=== PATIENT | male | born 1960 | race Caucasian/White ===

== ENCOUNTER 2020-04-18 14:02 | Inpatient (IN) ==
[2020-04-18] MEDS ORDERED: IOPAMIDOL 100 ML BOTTLE IV ONE (14:03)
[2020-04-18 14:57] LABS: Hematocrit 38.6 % (40.1-51.0); Hemoglobin 13.6 g/dL (13.7-17.5); Mean Cell Volume 88.7 fL (80.0-100.0); Mean Corpuscular HGB Conc 35.2 g/dL (31.0-36.0); Mean Platelet Volume 9.7 fL (7.4-10.4); Platelet Count 282 K/mcL (140-440); RBC 4.35 M/mcL (4.63-6.08); Red Cell Distribution Width 12.9 % (11.5-14.5); WBC 25.6 K/mcL (4.50-11.00)
[2020-04-18 15:18] LABS: ALT/SGPT 79 U/l (0-40); AST/SGOT 54 U/l (0-37); Alkaline Phosphatase 196 U/L (39-117); Bilirubin,Total 1.1 mg/dL (0.0-1.0); Blood Urea Nitrogen 18 mg/dl (8-23); Calcium 8.1 mg/dl (8.6-10.4); Carbon Dioxide 21 mmol/L (22-30); Chloride 91 mmol/L (96-108); Globulin 3.1 gm/dL (2.2-3.7); Glomerular Filtration Rate 72; Glucose 120 mg/dL (70-105)
[2020-04-18 15:23] LABS: Band Neutrophils % 15 % (0-10); Lymphocytes % 7 % (15-49); Monocytes % (Manual) 4 % (1-12); Platelet Estimate NORMAL (NORMAL); RBC Morphology NORMAL (NORMAL); Segmented Neutrophils % 74 % (38-78)
[2020-04-18] MEDS ORDERED: cefTRIAXone 1 GM VIAL IV ONE (15:54)
[2020-04-18] MEDS ORDERED: 0.9 % SODIUM CHLORIDE 1,000 ML IV ONE ×2 (16:06)
--- NOTE | 2020-04-18 16:11 | Cat Scan Report ---
INDICATION: swelling, redness, injury, worsening x 1 week TECHNIQUE: Axial images through the right foot. Sagittal and coronal reformatted images. 80 mL contrast material injected COMPARISON: Previous plain film examination dated 04/10/2020 FINDINGS: Generalized soft tissue swelling in the right midfoot and forefoot. There is a poorly defined soft tissue hypodensity along the plantar aspects of the right foot at the level of the first and second metatarsals. This may be soft tissue hematoma. No soft tissue gas bubbles. No radiopaque foreign body. There is no right foot fracture. No evidence for osteomyelitis. IMPRESSION: 1. Generalized soft tissue swelling of the right midfoot and forefoot 2. Poorly defined low density within the soft tissues along the plantar aspects of the first and second metatarsal. Soft tissue hematoma is possible. 3. No soft tissue gas bubbles. No radiopaque foreign body 4. No right foot fracture Interpreted and Authenticated by: Lorne Resendiz 04/18/20
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
[2020-04-18] MEDS ORDERED: ONDANSETRON 4 MG/2 ML VIAL IV ONE (16:36)
[2020-04-18] MEDS ORDERED: HYDROmorphone 0.5 MG/0.5 ML SYRINGE IV ONE (16:36)
[2020-04-18] MEDS ORDERED: HYDROmorphone 0.5 MG/0.5 ML SYRINGE IV PRN (17:05)
[2020-04-18] MEDS ORDERED: ONDANSETRON 4 MG/2 ML VIAL IV PRN ×3 (17:07→18:11)
[2020-04-18] MEDS ORDERED: 0.9 % SODIUM CHLORIDE 1,000 ML IV SCH (17:15)
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
[2020-04-18] MEDS ORDERED: ACETAMINOPHEN 325 MG TABLET PO PRN (18:11)
[2020-04-18] MEDS: 0.9 % SODIUM CHLORIDE 1,000 ML IV SCH (18:33)
[2020-04-18] MEDS: KETOROLAC 10 MG TABLET PO PRN (18:48)
[2020-04-18] MEDS ORDERED: ACETAMINOPHEN 650 MG/65 ML BOTTLE IV PRN (19:41)
[2020-04-18] MEDS: DOCUSATE SODIUM 100 MG CAPSULE PO SCH (23:33)
[2020-04-18] MEDS: SENNOSIDES 1 TABLET PO SCH (23:33)
[2020-04-18] MEDS: 0.9 % SODIUM CHLORIDE 10 ML SYRINGE IV SCH (23:33)
[2020-04-18] MEDS: FAMOTIDINE 20 MG TABLET PO SCH (23:34)
[2020-04-19] MEDS: 0.9 % SODIUM CHLORIDE 1,000 ML IV SCH ×3 (02:32→23:08)
[2020-04-19] MEDS: KETOROLAC 10 MG TABLET PO PRN (02:34)
[2020-04-19] MEDS: 0.9 % SODIUM CHLORIDE 10 ML SYRINGE IV SCH ×3 (04:10→21:10)
[2020-04-19 07:05] LABS: Hematocrit 33.8 % (40.1-51.0); Hemoglobin 11.6 g/dL (13.7-17.5); Mean Cell Volume 91.6 fL (80.0-100.0); Mean Corpuscular HGB Conc 34.3 g/dL (31.0-36.0); Mean Platelet Volume 9.7 fL (7.4-10.4); Platelet Count 262 K/mcL (140-440); RBC 3.69 M/mcL (4.63-6.08); Red Cell Distribution Width 13.8 % (11.5-14.5); WBC 23.2 K/mcL (4.50-11.00)
[2020-04-19 07:40] LABS: Blood Urea Nitrogen 16 mg/dl (8-23); Calcium 7.7 mg/dl (8.6-10.4); Carbon Dioxide 22 mmol/L (22-30); Chloride 100 mmol/L (96-108); Glomerular Filtration Rate 92; Glucose 101 mg/dL (70-105)
[2020-04-19 08:18] LABS: Band Neutrophils % 5 % (0-10); Lymphocytes % 16 % (15-49); Monocytes % (Manual) 6 % (1-12); Platelet Estimate NORMAL (NORMAL); RBC Morphology NORMAL (NORMAL); Reactive Lymphocytes 1 % (0-2); Segmented Neutrophils % 72 % (38-78)
[2020-04-19] MEDS: ENOXAPARIN 40 MG/0.4 ML SYRINGE SQ SCH (09:17)
[2020-04-19] MEDS: DOCUSATE SODIUM 100 MG CAPSULE PO SCH ×2 (09:21→21:08)
[2020-04-19] MEDS: FAMOTIDINE 20 MG TABLET PO SCH ×2 (09:33→21:18)
[2020-04-19] MEDS: cefTRIAXone 1 GM VIAL IV SCH (09:33)
[2020-04-19] MEDS: HYDROmorphone 0.5 MG/0.5 ML SYRINGE IV PRN ×4 (09:38→23:07)
--- NOTE | 2020-04-19 09:58 | Orthopedic Consult Note ---
HPI Data of Consult Primary Care Provider: Lorne Back DO Consult Narrative Patient Information: Note initiated : 04/19/20 at 9:53 am Service Date, if different from initiated Date: [] Patient: Bob Dupont 60 y/o M admitted on 04/18/20 for right foot redness/swelling. Chief Complaint: [right foot cellulitis] Patient is consulted to podiatry with a severe right foot swelling and infection. He injured it on the , 1 week ago, and has become very painful and swollen. He has no other major contributing factors such as diabetes. He does test positive with gram-positive cocci in his blood. The right foot fore foot is severely swollen with notable purulence and fluctuance under the tissue. cc:: CC: Yulisa Meléndez Musculoskeletal Musculoskeletal: Present as per HPI PFSH PFSH All Active Problems Strain of great toe (Acute) Contusion of foot, right (Acute) Cellulitis of right foot (Acute) Elevated WBC count (Acute) Environmental allergies (Chronic) Rotator cuff impingement syndrome (Chronic) FH: CAD (coronary artery disease) (Chronic) Osteoarthritis (Chronic) Viral URI with cough (Acute) Microhematuria (Chronic) Bilateral otitis media (Acute) URI (upper respiratory infection) (Acute) Ureteral calculus (Chronic) Trochanteric bursitis (Chronic) Tinea cruris (Chronic) Reactive airway disease (Chronic) Pyelonephritis (Chronic) Onychomycosis (Chronic) Obstructive uropathy (Chronic 06/13/13) Insomnia (Chronic) Essential hypertension (Chronic) Hyperlipidemia (Chronic) Hearing loss (Chronic) Erectile dysfunction (Chronic) Dermatitis (Chronic) Osteoarthritis of hip (Chronic 01/04/15) Colon adenoma (Chronic 12/15/14) Bronchitis (Chronic 01/04/15) Asthma (Chronic) Abdominal pain (Chronic) Medical History Abdominal pain (Chronic) Asthma (Chronic) Bronchitis (Chronic 01/04/15) Calculus of kidney (Resolved) Colon adenoma (Chronic 12/15/14) 06/16/17. 5-7 year follow-up per Dr. Juarez Dermatitis (Chronic) forehead, likely rosacea Erectile dysfunction (Chronic) Well-controlled on Viagra 10 mg as needed. Essential hypertension (Chronic) FH: CAD (coronary artery disease) (Chronic) Father Hearing loss (Chronic) Hyperlipidemia (Chronic) Well-controlled on Lipitor 10 mg daily. No myalgias. Insomnia (Chronic) Microhematuria (Chronic) H/O Obstructive uropathy (Chronic 06/13/13) Onychomycosis (Chronic) Osteoarthritis (Chronic) Osteoarthritis of hip (Chronic 01/04/15) Pyelonephritis (Chronic) Reactive airway disease (Chronic) Tinea cruris (Chronic) Trochanteric bursitis (Chronic) Ureteral calculus (Chronic) passed Surgical History H/O colonoscopy (Resolved 06/16/17) 05/18/12 Colon ascending; tubular adenoma. Hemorrhoids. 06/16/17 TA, 5-[address] Juarez. 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 well-balanced diet: daily or most days during the past year weight has: remained stable smoking status: Never smoker alcohol intake frequency: does not drink substance use type: does not use MEDS/ALLERGIES Home Medications and Allergies Home Medications Medication Instructions Recorded Confirmed Type atorvastatin 10 mg PO QHS 04/18/20 04/18/20 History Allergies Allergy/AdvReac Type Severity Reaction Status Date / Time morphine AdvReac Mild Hallucinati Verified 04/18/20 18:40 ng Physical Examination Ankle & Foot right: Ankle appearance: swelling, erythema and effusion Foot appearance: swelling, erythema, contusion and effusion Foot swelling: dorsal, plantar, medial and lateral A/P Time Spent With Patient Time: Heart inspection: S1, S2 present, no murmur detected Lungs clear to auscultation. Plan:incision and drainage of the right foot, packed with Betadine soaked packing, -dressing changed daily, follow-up in podiatry clinic IV antibiotics, Once white cell count returns to baseline. Total time spent is greater than 50% in coordination of care (as documented) at patient's floor/unit and/or counseling patient:
--- NOTE | 2020-04-19 09:59 | Internal Med Progress Note ---
SUBJECTIVE Subjective Patient information: Note initiated : 04/19/20 at 9:57 am Service Date, if different from initiated Date: [] Patient: Bob Dupont 60 y/o M admitted on 04/18/20 for right foot redness/swelling. Chief Complaint: Follow-up cellulitis Interval history: Patient feels a little better this morning, though still feels ill. Erythema has started to mildly regress and starting to lighten, though still significant edema. Area between the first and second toes darker and appears to be organizing. Pertinent ROS: No reaction to acetaminophen. Continued fever. Continued foot pain. No nausea or vomiting. Remains n.p.o. Constitutional Vitals: Vital Signs Temp Pulse Resp BP Pulse Ox 97.2 F 66 16 123/70 97 04/19/20 08:00 04/19/20 08:00 04/19/20 08:00 04/19/20 08:00 04/19/20 08:00 Period Temp Pulse Resp BP Sys/Hassan Pulse Ox Last 24 Hr 97.2 F-100.9 F 66-104 14-20 111-152/59-71 93-97 Intake and Output 04/18/20 04/19/20 04/19/20 21:59 05:59 13:59 Intake Total 1120 0 Output Total 1000 450 Balance 1120 -1000 -450 Weight 190 lb General: Looks mildly ill, improved from yesterday Chest: Clear bilaterally Cardiovascular: Regular, no murmur Abdomen: Soft, nontender Extremities: Foot with erythema slightly regressed from drawn margins, mild erythema on the calf/kaur is resolving. The area between the first and second toes on the dorsum appears tighter, purplish discoloration a little more intense today, may be some fluctuance, though difficult to tell with the tightness of skin. Neuro: Alert, oriented x3. Intake & Output: Intake & Output 04/18/20 04/19/20 04/19/20 21:59 05:59 13:59 Intake Total 1120 0 Output Total 1000 450 Balance 1120 -1000 -450 Weight 190 lb Intake: IV 1120 Sodium Chloride 0.9% 1,000 ml @ 1120 100 mls/hr IV .Q10H [facility] Rx#: [id number] Oral 0 Output: Void Amount 1000 450 Other: Urine Appearance Clear Urine Color Dark Yellow OBJ DATA Labs CBC & Chem 7: 04/19/20 05:15 04/19/20 05:15 Labs: Abnormal Lab Results 04/19/20 04/19/20 04/18/20 05:15 05:15 14:31 WBC 23.2 H 25.6 H RBC 3.69 L 4.35 L Hgb 11.6 L 13.6 L Hct 33.8 L 38.6 L Band Neutrophils % 15 H Lymphocytes % 7 L Sodium Chloride Carbon Dioxide Glucose Calcium 7.7 L Total Bilirubin AST ALT Alkaline Phosphatase C-Reactive Protein Albumin 04/18/20 04/18/20 14:29 14:29 WBC RBC Hgb Hct Band Neutrophils % Lymphocytes % Sodium 128 L Chloride 91 L Carbon Dioxide 21 L Glucose 120 H Calcium 8.1 L Total Bilirubin 1.1 H AST 54 H ALT 79 H Alkaline Phosphatase 196 H C-Reactive Protein 24.8 H Albumin 3.0 L Meds: Medications Acetaminophen (Tylenol) 650 mg PO Q6HP PRN; Protocol PRN Reason: Per Pain Protocol/Fever > 101 Ceftriaxone Sodium (Rocephin) 1 gm IV Q24H [facility] Last Admin: 04/19/20 09:33 Dose: 1 gm Documented by: Docusate Sodium (Colace) 100 mg PO BID [facility] Last Admin: 04/19/20 09:21 Dose: Not Given Documented by: Enoxaparin Sodium (Lovenox) 40 mg SQ DAILY [facility] Last Admin: 04/19/20 09:17 Dose: Not Given Documented by: Famotidine (Pepcid) 20 mg PO BID [facility] Last Admin: 04/19/20 09:33 Dose: 20 mg Documented by: Hydromorphone HCl (Dilaudid) 0.5 mg IV Q2HP PRN; Protocol PRN Reason: Per Pain Protocol Last Admin: 04/19/20 09:38 Dose: 0.5 mg Documented by: Sodium Chloride (Sodium Chloride 0.9%) 1,000 mls @ 100 mls/hr IV .Q10H [facility] Last Admin: 04/19/20 02:32 Dose: 100 mls/hr Documented by: Acetaminophen (Ofirmev) 650 mg in 65 mls @ 130 mls/hr IV Q6HP PRN; Protocol PRN Reason: PAIN/FEVER > 101 Last Admin: 04/18/20 23:43 Dose: 130 mls/hr Documented by: Ketorolac Tromethamine (Toradol) 10 mg PO Q6HP PRN; Protocol PRN Reason: Per Pain Protocol Stop: 04/20/20 17:35 Last Admin: 04/19/20 02:34 Dose: 10 mg Documented by: Ondansetron HCl (Zofran) 4 mg IV Q4-6HP PRN PRN Reason: Nausea And Vomiting Senna (Senokot) 2 tab PO HS [facility] Last Admin: 04/18/20 23:33 Dose: Not Given Documented by: Sodium Chloride (Saline Flush) 10 ml IV Q8 [facility] Last Admin: 04/19/20 04:10 Dose: Not Given Documented by: Trazodone HCl (Desyrel) 25 mg PO HSP PRN PRN Reason: Insomnia A/P Narrative A/P Narrative: 60-year-old male presenting with cellulitis of his right foot in the setting of prior injury. Cellulitis right foot. Erythema regressing this morning, though white count remains at 23,000. Blood cultures taken on admission are all positive for gram- positive cocci. Discussed with Dr. Knight, he has seen the patient and plans to do an I&D later this morning. Patient presented with warm erythematous and swollen right forefoot and toes. Some streaking to the midfoot consistent with cellulitis. Etiology may have been a skin break from inflammatory edema following the injury to his foot. The area between the first and second toes now looks like it may be organizing. Given gram-positive bacteremia, will expand coverage for staph with vancomycin. Initially this appeared to be more of a strep cellulitis.. Inpatient from time of hospitalization Continue ceftriaxone Add vancomycin Continue with hydration Acetaminophen for fever Follow-up final blood cultures and sensitivities Elevate lower extremity Hyponatremia. Mild at presentation, resolved. Suspect this is dilutional secondary to his increased water intake to try to remain hydrated with not much else in the way of solutes due to his poor appetite. Monitor Flushing reaction after nonsteroidals and acetaminophen. This almost sounds as if the patient had fever which broke following ibuprofen or acetaminophen, he became flushed and then diaphoretic. He generally does not use [id number] pain relievers, but has had no prior history of a reaction. No wheezing, no urticaria noted. Tolerating acetaminophen here. Continue acetaminophen for fever Hypercholesterolemia. On statin at home. Continue Time Spent With Patient Time: Total time spent is greater than 50% in coordination of care (as documented) at patient's floor/unit and/or counseling patient: QUALITY VTE Deep Vein Thrombosis/Pulmonary Embolism Present on Admission: No
[2020-04-19] MEDS ORDERED: VANCOMYCIN PER PHARMACY IV SCH (10:02)
[2020-04-19] MEDS: VANCOMYCIN 1,500 MG in 0.9 % SODIUM CHLORIDE 500 ML IV SCH ×2 (10:49→21:08)
[2020-04-19] MEDS ORDERED: KETAMINE 100 MG/ML ML ONE (11:45)
[2020-04-19] MEDS ORDERED: DEXAMETHASONE 10 MG/ML VIAL ONE (11:45)
[2020-04-19] MEDS ORDERED: ONDANSETRON 4 MG/2 ML VIAL ONE (11:45)
[2020-04-19] MEDS ORDERED: LIDOCAINE HCL/PF 100 MG/5 ML SYRINGE IV ONE (11:45)
[2020-04-19] MEDS ORDERED: PROPOFOL 200 MG/20 ML VIAL IV ONE (11:45)
[2020-04-19] MEDS ORDERED: MEPERIDINE 25 MG/ML SYRINGE IV PRN (12:02)
[2020-04-19] MEDS ORDERED: NALOXONE HCL 0.4 MG/ML VIAL IV PRN (12:02)
[2020-04-19] MEDS ORDERED: HYDROmorphone 0.5 MG/0.5 ML SYRINGE IV PRN (12:02)
[2020-04-19] MEDS ORDERED: IPRATROPIUM/ALBUTEROL 3 ML AMPUL.NEB NEB PRN (12:02)
[2020-04-19] MEDS ORDERED: PROMETHAZINE 25 MG/ML VIAL IV PRN (12:02)
[2020-04-19] MEDS ORDERED: fentaNYL 100 MCG/2 ML VIAL IV PRN (12:02)
[2020-04-19] MEDS ORDERED: LACTATED RINGERS 250 ML IV PRN (12:02)
[2020-04-19] MEDS ORDERED: ONDANSETRON 4 MG/2 ML VIAL IV PRN (12:02)
[2020-04-19] MEDS ORDERED: diphenhydrAMINE 50 MG/ML VIAL IV PRN (12:02)
[2020-04-19] MEDS ORDERED: ACETAMINOPHEN 1,000 MG/100 ML BOTTLE IV ONE (12:15)
[2020-04-19] MEDS ORDERED: LACTATED RINGERS 1,000 ML IV SCH (12:15)
--- NOTE | 2020-04-19 12:19 | Brief Operative Note ---
Brief Operative Note Date of procedure: 04/19/20 Pre-op diagnosis: Cellulitis right foot Post-op diagnosis: same Procedure: Incision and drainage right foot Grafts/Implants: No Anesthesia: GETA Complications: none Surgeon: Simon Knight Estimated blood loss (cc): 50 Specimens Removed/Pathology: other (culture right foot) Condition: stable Disposition: floor
--- NOTE | 2020-04-19 12:36 | Operative Note ---
DATE OF OPERATION: 04/19/2020 PREOPERATIVE DIAGNOSIS: Cellulitis, right foot. POSTOPERATIVE DIAGNOSIS: Cellulitis, right foot. PROCEDURE: Incision and drainage, right foot. SURGEON: Simon Knight DPM IMPLANTS: None. ANESTHESIA: GETA. COMPLICATIONS: None. ESTIMATED BLOOD LOSS: 50 mL SPECIMENS: Culture right foot. CONDITION: Stable. DISPOSITION: Floor. DESCRIPTION OF PROCEDURE: The patient was brought to the operating room and placed on the operative table in supine position. General anesthesia established. A 4 cm incision was created over a large purulent region of the right first metatarsal. Upon incision, there is abundant purulent drainage. This purulence was sent for culture. Tissue scissors were used to open any pockets of abscess and manual expression was used. A 3 liter bag of normal saline was used to irrigate the wound in a pulse lavage fashion. The wound was then packed with half inch packing soaked in Betadine, and 4 x 4 gauze, Kerlix, ABD pad and Luis wrap were applied for dressings. The patient was brought out of general anesthesia, transferred to the postoperative care unit with vital signs stable and vascular status intact to his foot. He will be transferred to the floor for continued antibiotic therapy. KDJ:nancy Job ID: [id number] Doc ID: [id number] Simon Knight DPM
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
[2020-04-19] MEDS ORDERED: cefTRIAXone 1 GM in DEXTROSE 5% IN WATER 50 ML IV SCH (16:00)
[2020-04-19] MEDS: MUPIROCIN OINT 2% 22GM NARES SCH (21:06)
[2020-04-19] MEDS: SENNOSIDES 1 TABLET PO SCH (21:08)
[2020-04-19] MEDS: traZODone HCL 50 MG TABLET PO PRN (23:07)
[2020-04-20] MEDS: 0.9 % SODIUM CHLORIDE 1,000 ML IV SCH (01:12)
[2020-04-20] MEDS: 0.9 % SODIUM CHLORIDE 10 ML SYRINGE IV SCH ×3 (04:36→21:31)
[2020-04-20] MEDS: KETOROLAC 10 MG TABLET PO PRN (06:23)
[2020-04-20 06:58] LABS: Hematocrit 34.3 % (40.1-51.0); Hemoglobin 11.4 g/dL (13.7-17.5); Mean Cell Volume 93.7 fL (80.0-100.0); Mean Corpuscular HGB Conc 33.2 g/dL (31.0-36.0); Mean Platelet Volume 9.8 fL (7.4-10.4); Platelet Count 313 K/mcL (140-440); RBC 3.66 M/mcL (4.63-6.08); Red Cell Distribution Width 14.2 % (11.5-14.5); WBC 23.5 K/mcL (4.50-11.00)
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
[2020-04-20 07:10] LABS: ALT/SGPT 72 U/l (0-40); AST/SGOT 58 U/l (0-37); Albumin 2.4 gm/dL (3.2-5.2); Albumin/Globulin Ratio 0.9 (1.0-2.3); Alkaline Phosphatase 187 U/L (39-117); Bilirubin,Direct < 0.2 mg/dL (0.0-0.3); Bilirubin,Total 0.4 mg/dL (0.0-1.0); Blood Urea Nitrogen 15 mg/dl (8-23); Calcium 8.3 mg/dl (8.6-10.4); Carbon Dioxide 21 mmol/L (22-30); Chloride 104 mmol/L (96-108); Globulin 2.8 gm/dL (2.2-3.7); Glomerular Filtration Rate 102; Glucose 145 mg/dL (70-105); Lactate Dehydrogenase 197 U/L (94-250); Phosphorous 2.4 mg/dL (2.7-4.5); Triglycerides 191 mg/dl (<150); Uric Acid 4.1 mg/dL (2.5-8.0)
[2020-04-20] MEDS: FAMOTIDINE 20 MG TABLET PO SCH ×2 (08:03→21:28)
[2020-04-20] MEDS: DOCUSATE SODIUM 100 MG CAPSULE PO SCH ×2 (08:03→21:28)
[2020-04-20] MEDS: ENOXAPARIN 40 MG/0.4 ML SYRINGE SQ SCH (08:04)
[2020-04-20 09:09] LABS: Band Neutrophils % 4 % (0-10); Lymphocytes % 7 % (15-49); Monocytes % (Manual) 8 % (1-12); Platelet Estimate NORMAL (NORMAL); RBC Morphology NORMAL (NORMAL); Segmented Neutrophils % 81 % (38-78)
[2020-04-20] MEDS: MUPIROCIN OINT 2% 22GM NARES SCH ×2 (10:07→21:28)
[2020-04-20] MEDS: cefTRIAXone 1 GM VIAL IV SCH (10:07)
[2020-04-20] MEDS: VANCOMYCIN 1,500 MG in 0.9 % SODIUM CHLORIDE 500 ML IV SCH (10:59)
[2020-04-20] MEDS: DAPTOmycin 500 MG VIAL IV SCH (15:19)
[2020-04-20] MEDS: SENNOSIDES 1 TABLET PO SCH (21:29)
[2020-04-20] MEDS: HYDROmorphone 0.5 MG/0.5 ML SYRINGE IV PRN (21:29)
[2020-04-20] MEDS: traZODone HCL 50 MG TABLET PO PRN (21:29)
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
[2020-04-21] MEDS: HYDROmorphone 0.5 MG/0.5 ML SYRINGE IV PRN ×5 (04:05→21:19)
[2020-04-21] MEDS: 0.9 % SODIUM CHLORIDE 10 ML SYRINGE IV SCH ×5 (04:06→20:57)
[2020-04-21 06:54] LABS: Basophils # (Auto) 0.05 K/mcL (0.00-0.30); Basophils % (Auto) 0.2 % (0.0-2.0); Eosinophils # (Auto) 0.11 K/mcL (0.00-0.70); Eosinophils % (Auto) 0.5 % (0.0-7.0); Granulocytes % (Auto) 77.8 % (38.0-78.0); Hematocrit 32.3 % (40.1-51.0); Hemoglobin 10.8 g/dL (13.7-17.5); Lymphocytes # (Auto) 3.23 K/mcL (1.50-4.80); Lymphocytes % (Auto) 15.9 % (15.5-49.0); Mean Cell Volume 92.3 fL (80.0-100.0); Mean Corpuscular HGB Conc 33.4 g/dL (31.0-36.0); Mean Platelet Volume 9.5 fL (7.4-10.4); Monocytes # (Auto) 1.14 K/mcL (0.10-0.90); Monocytes % (Auto) 5.6 % (1.0-12.0); Platelet Count 408 K/mcL (140-440); Red Cell Distribution Width 14.3 % (11.5-14.5); WBC 20.4 K/mcL (4.50-11.00)
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
[2020-04-21 07:26] LABS: ALT/SGPT 67 U/l (0-40); AST/SGOT 48 U/l (0-37); Albumin 2.2 gm/dL (3.2-5.2); Albumin/Globulin Ratio 0.8 (1.0-2.3); Alkaline Phosphatase 135 U/L (39-117); Bilirubin,Direct < 0.2 mg/dL (0.0-0.3); Bilirubin,Total 0.4 mg/dL (0.0-1.0); Blood Urea Nitrogen 16 mg/dl (8-23); Calcium 8.1 mg/dl (8.6-10.4); Carbon Dioxide 25 mmol/L (22-30); Chloride 103 mmol/L (96-108); Globulin 2.6 gm/dL (2.2-3.7); Glomerular Filtration Rate 102; Glucose 88 mg/dL (70-105); Lactate Dehydrogenase 146 U/L (94-250); Triglycerides 198 mg/dl (<150); Uric Acid 4.5 mg/dL (2.5-8.0)
[2020-04-21 07:38] LABS: Phosphorous 3.2 mg/dL (2.7-4.5)
[2020-04-21] MEDS: FAMOTIDINE 20 MG TABLET PO SCH ×2 (08:17→20:57)
[2020-04-21] MEDS: ENOXAPARIN 40 MG/0.4 ML SYRINGE SQ SCH (08:17)
[2020-04-21] MEDS: DOCUSATE SODIUM 100 MG CAPSULE PO SCH ×2 (08:18→20:57)
[2020-04-21] MEDS: cefTRIAXone 1 GM VIAL IV SCH (09:48)
[2020-04-21] MEDS: DAPTOmycin 500 MG VIAL IV SCH (09:48)
[2020-04-21] MEDS: ZINC OXIDE TOPICAL SCH ×3 (09:48→20:57)
[2020-04-21] MEDS: MUPIROCIN OINT 2% 22GM NARES SCH ×2 (09:49→20:56)
--- NOTE | 2020-04-21 11:27 | Internal Med Progress Note ---
SUBJECTIVE Subjective Patient information: Note initiated : 04/21/20 at 11:23 am Service Date, if different from initiated Date: [] Patient: Bob Dupont 60 y/o M admitted on 04/18/20 for right foot redness/swelling. Chief Complaint: [Patient denies any chills, fever, nausea, vomiting, diarrhea. Endorses right foot pain, better with pain medication. Denies any body aches.] Constitutional Vitals: Vital Signs Temp Pulse Resp BP Pulse Ox 36.8 C 69 18 140/80 96 04/21/20 06:39 04/21/20 06:39 04/21/20 06:39 04/21/20 06:39 04/21/20 06:39 Period Temp Pulse Resp BP Sys/Hassan Pulse Ox Last 24 Hr 35.9 C-36.8 C 65-76 12-18 133-158/70-84 95-97 Intake and Output 04/20/20 04/21/20 04/21/20 21:59 05:59 13:59 Intake Total 120 600 Output Total 850 825 Balance -730 -225 Weight 86.183 kg Intake & Output: Intake & Output 04/20/20 04/21/20 04/21/20 21:59 05:59 13:59 Intake Total 120 600 Output Total 850 825 Balance -730 -225 Weight 86.183 kg Intake: Oral 120 600 Output: Void Amount 850 825 Other: Meal 2 yogurt yogurt Percent of Meal Consumed 100% 100% Feeding Ability Independent Independent Urine Appearance Clear Clear Urine Color Pale Dark Yellow Urine Odor Normal Additional findings Additional findings: ao x 3, in mild distress due to pain no thrush right foot: there is a single linear 5-6 cm ulcer over medial aspect of right foot, with purulent drainage (moderate amount). The probe to bone is positive with tunnelling of around 10 cm towards lateral border and up to 4-5 cm in proximal and distal aspects. There is an area of fluctuance over the dorsal midfoot which on being pressed leads to increased pus drainage from the the ulcer. There is mild redness within marked area of right foot, with no ankle or proximal leg involvement. OBJ DATA Labs CBC & Chem 7: 04/21/20 05:25 04/21/20 05:25 Labs: Abnormal Lab Results 04/21/20 04/21/20 04/20/20 05:25 05:25 05:21 WBC 20.4 H RBC 3.50 L Hgb 10.8 L Hct 32.3 L Gran # 15.84 H [place] # (Auto) 1.14 H Seg Neutrophils % Band Neutrophils % Lymphocytes % Sodium Chloride Carbon Dioxide 21 L Glucose 145 H Calcium 8.1 L 8.3 L Phosphorus 2.4 L Total Bilirubin GGT 75 H 92 H AST 48 H 58 H ALT 67 H 72 H Alkaline Phosphatase 135 H 187 H C-Reactive Protein Total Protein 4.8 L 5.2 L Albumin 2.2 L 2.4 L Albumin/Globulin Ratio 0.8 L 0.9 L Triglycerides 198 H 191 H 04/20/20 04/19/20 04/19/20 05:21 05:15 05:15 WBC 23.5 H 23.2 H RBC 3.66 L 3.69 L Hgb 11.4 L 11.6 L Hct 34.3 L 33.8 L Gran # [place] # (Auto) Seg Neutrophils % 81 H Band Neutrophils % Lymphocytes % 7 L Sodium Chloride Carbon Dioxide Glucose Calcium 7.7 L Phosphorus Total Bilirubin GGT AST ALT Alkaline Phosphatase C-Reactive Protein Total Protein Albumin Albumin/Globulin Ratio Triglycerides 04/18/20 04/18/20 04/18/20 14:31 14:29 14:29 WBC 25.6 H RBC 4.35 L Hgb 13.6 L Hct 38.6 L Gran # [place] # (Auto) Seg Neutrophils % Band Neutrophils % 15 H Lymphocytes % 7 L Sodium 128 L Chloride 91 L Carbon Dioxide 21 L Glucose 120 H Calcium 8.1 L Phosphorus Total Bilirubin 1.1 H GGT AST 54 H ALT 79 H Alkaline Phosphatase 196 H C-Reactive Protein 24.8 H Total Protein Albumin 3.0 L Albumin/Globulin Ratio Triglycerides Meds: Medications Acetaminophen (Tylenol) 650 mg PO Q6HP PRN; Protocol PRN Reason: Per Pain Protocol/Fever > 101 Ceftriaxone Sodium (Rocephin) 1 gm IV Q24H [facility] Last Admin: 04/21/20 09:48 Dose: 1 gm Documented by: Daptomycin (Cubicin) 700 mg IV Q24H [facility] Last Admin: 04/21/20 09:48 Dose: 700 mg Documented by: Docusate Sodium (Colace) 100 mg PO BID [facility] Last Admin: 04/21/20 08:18 Dose: 100 mg Documented by: Enoxaparin Sodium (Lovenox) 40 mg SQ DAILY [facility] Last Admin: 04/21/20 08:17 Dose: 40 mg Documented by: Famotidine (Pepcid) 20 mg PO BID [facility] Last Admin: 04/21/20 08:17 Dose: 20 mg Documented by: Hydromorphone HCl (Dilaudid) 0.5 mg IV Q2HP PRN; Protocol PRN Reason: Per Pain Protocol Last Admin: 04/21/20 06:22 Dose: 0.5 mg Documented by: Acetaminophen (Ofirmev) 650 mg in 65 mls @ 130 mls/hr IV Q6HP PRN; Protocol PRN Reason: PAIN/FEVER > 101 Last Admin: 04/18/20 23:43 Dose: 130 mls/hr Documented by: Mupirocin (Bactroban Oint 2%) 1 dose NARES BID [facility] Last Admin: 04/21/20 09:49 Dose: 1 dose Documented by: Zinc Oxide Ointment 1 dose TOPICAL TID [facility] Last Admin: 04/21/20 09:48 Dose: 1 dose Documented by: Ondansetron HCl (Zofran) 4 mg IV Q4-6HP PRN PRN Reason: Nausea And Vomiting Senna (Senokot) 2 tab PO HS [facility] Last Admin: 04/20/20 21:29 Dose: 2 tab Documented by: Sodium Chloride (Saline Flush) 10 ml IV Q8 [facility] Last Admin: 04/21/20 06:22 Dose: 10 ml Documented by: Trazodone HCl (Desyrel) 25 mg PO HSP PRN PRN Reason: Insomnia Last Admin: 04/20/20 21:29 Dose: 25 mg Documented by: A/P Narrative A/P Narrative: A: 1. Complicated MRSA bacteremia with right foot cellulitis: 2/2 sets +ve from 04/18. Cx from 04/20/20 are so far NGTD - source is right foot purulent cellulitis - risk factors of MRSA nasal colonization and subseq body colonization, trauma - associated with sepsis: now resolving. NO septic shock 2. Rt foot purulent cellulitis with osteomyelitis: s/p surgical debridement on 04/19 - wound Cx growing MRSA - given presence of fluctuance, skin necrosis, skin slough, and extensive tunneling, and leucocytosis; would need further debridement Recommendations: - Consider further debridement of rt foot abscess with osteomyelitis for complete source control . Possibly needs deeper debridement - repeat blood Cx every other day until neg for 48 hrs - continue IV Daptomycin 8 mg/kg (=700 mg) q24. Baseline CK normal. will have weekly CK monitoring - TTE report pending - will plan for PICC placement once blood Cx neg for 48 hrs - anticipate 6 weeks of IV antibiotics counting from 1st day of negative blood CX. will have pt f/u with Dr Amezquita ([facility] ID physician) after discharge - wound care per Dr Knight - agree with MRSA decolonization for 5 days. Pt counseled to have high touch surfaces at home cleaned with bleach wipes, laundry all clothes with regular detergent and high temp drying will follow Andrew Patel MD Infectious Diseases Time Spent With Patient Time: Total time spent is greater than 50% in coordination of care (as documented) at patient's floor/unit and/or counseling patient: QUALITY VTE Deep Vein Thrombosis/Pulmonary Embolism Present on Admission: No
--- NOTE | 2020-04-21 11:45 | Orthopedic Progress Note ---
SUBJECTIVE Subjective Patient information: Note initiated : 04/21/20 at 11:43 am Service Date, if different from initiated Date: [] Patient: Bob Dupont 60 y/o M admitted on 04/18/20 for right foot redness/swelling. Chief Complaint: [right foot pain] Constitutional Vitals: Vital Signs Temp Pulse Resp BP Pulse Ox 98.2 F 69 18 140/80 96 04/21/20 06:39 04/21/20 06:39 04/21/20 06:39 04/21/20 06:39 04/21/20 06:39 Period Temp Pulse Resp BP Sys/Hassan Pulse Ox Last 24 Hr 96.6 F-98.2 F 65-76 12-18 133-158/70-84 95-97 Intake and Output 04/20/20 04/21/20 04/21/20 21:59 05:59 13:59 Intake Total 120 600 Output Total 850 825 Balance -730 -225 Weight 190 lb Intake & Output: Intake & Output 04/20/20 04/21/20 04/21/20 21:59 05:59 13:59 Intake Total 120 600 Output Total 850 825 Balance -730 -225 Weight 190 lb Intake: Oral 120 600 Output: Void Amount 850 825 Other: Meal 2 yogurt yogurt Percent of Meal Consumed 100% 100% Feeding Ability Independent Independent Urine Appearance Clear Clear Urine Color Pale Dark Yellow Urine Odor Normal Extremities Exam Extremities exam: Present Foot pink and warm Additional comments: right foot swollen, mild drainage curretly OBJ DATA Labs CBC & Chem 7: 04/21/20 05:25 04/21/20 05:25 Labs: Abnormal Lab Results 04/21/20 04/21/20 04/20/20 05:25 05:25 05:21 WBC 20.4 H RBC 3.50 L Hgb 10.8 L Hct 32.3 L Gran # 15.84 H [place] # (Auto) 1.14 H Seg Neutrophils % Band Neutrophils % Lymphocytes % Sodium Chloride Carbon Dioxide 21 L Glucose 145 H Calcium 8.1 L 8.3 L Phosphorus 2.4 L Total Bilirubin GGT 75 H 92 H AST 48 H 58 H ALT 67 H 72 H Alkaline Phosphatase 135 H 187 H C-Reactive Protein Total Protein 4.8 L 5.2 L Albumin 2.2 L 2.4 L Albumin/Globulin Ratio 0.8 L 0.9 L Triglycerides 198 H 191 H 04/20/20 04/19/20 04/19/20 05:21 05:15 05:15 WBC 23.5 H 23.2 H RBC 3.66 L 3.69 L Hgb 11.4 L 11.6 L Hct 34.3 L 33.8 L Gran # [place] # (Auto) Seg Neutrophils % 81 H Band Neutrophils % Lymphocytes % 7 L Sodium Chloride Carbon Dioxide Glucose Calcium 7.7 L Phosphorus Total Bilirubin GGT AST ALT Alkaline Phosphatase C-Reactive Protein Total Protein Albumin Albumin/Globulin Ratio Triglycerides 04/18/20 04/18/20 04/18/20 14:31 14:29 14:29 WBC 25.6 H RBC 4.35 L Hgb 13.6 L Hct 38.6 L Gran # [place] # (Auto) Seg Neutrophils % Band Neutrophils % 15 H Lymphocytes % 7 L Sodium 128 L Chloride 91 L Carbon Dioxide 21 L Glucose 120 H Calcium 8.1 L Phosphorus Total Bilirubin 1.1 H GGT AST 54 H ALT 79 H Alkaline Phosphatase 196 H C-Reactive Protein 24.8 H Total Protein Albumin 3.0 L Albumin/Globulin Ratio Triglycerides Meds: Medications Acetaminophen (Tylenol) 650 mg PO Q6HP PRN; Protocol PRN Reason: Per Pain Protocol/Fever > 101 Ceftriaxone Sodium (Rocephin) 1 gm IV Q24H [facility] Last Admin: 04/21/20 09:48 Dose: 1 gm Documented by: Daptomycin (Cubicin) 700 mg IV Q24H [facility] Last Admin: 04/21/20 09:48 Dose: 700 mg Documented by: Docusate Sodium (Colace) 100 mg PO BID [facility] Last Admin: 04/21/20 08:18 Dose: 100 mg Documented by: Enoxaparin Sodium (Lovenox) 40 mg SQ DAILY [facility] Last Admin: 04/21/20 08:17 Dose: 40 mg Documented by: Famotidine (Pepcid) 20 mg PO BID [facility] Last Admin: 04/21/20 08:17 Dose: 20 mg Documented by: Hydromorphone HCl (Dilaudid) 0.5 mg IV Q2HP PRN; Protocol PRN Reason: Per Pain Protocol Last Admin: 04/21/20 06:22 Dose: 0.5 mg Documented by: Acetaminophen (Ofirmev) 650 mg in 65 mls @ 130 mls/hr IV Q6HP PRN; Protocol PRN Reason: PAIN/FEVER > 101 Last Admin: 04/18/20 23:43 Dose: 130 mls/hr Documented by: Mupirocin (Bactroban Oint 2%) 1 dose NARES BID [facility] Last Admin: 04/21/20 09:49 Dose: 1 dose Documented by: Zinc Oxide Ointment 1 dose TOPICAL TID [facility] Last Admin: 04/21/20 09:48 Dose: 1 dose Documented by: Ondansetron HCl (Zofran) 4 mg IV Q4-6HP PRN PRN Reason: Nausea And Vomiting Senna (Senokot) 2 tab PO HS [facility] Last Admin: 04/20/20 21:29 Dose: 2 tab Documented by: Sodium Chloride (Saline Flush) 10 ml IV Q8 [facility] Last Admin: 04/21/20 06:22 Dose: 10 ml Documented by: Trazodone HCl (Desyrel) 25 mg PO HSP PRN PRN Reason: Insomnia Last Admin: 04/20/20 21:29 Dose: 25 mg Documented by: A/P Time Spent With Patient Time: Total time spent is greater than 50% in coordination of care (as documented) at patient's floor/unit and/or counseling patient: * Possibly needs deeper debridement * Continue antibiotics * Re-evaluate over next 48 hours * Requires out-patient referral to podiatry
--- NOTE | 2020-04-21 17:07 | Magnetic Resonance Report ---
INDICATION: Osteomyelitis TECHNIQUE: Sagittal, axial, coronal images of the right foot COMPARISON: CT scan dated 04/18/2020 FINDINGS: There is bone marrow edema within the mid and distal right first metatarsal. There is associated cortical destruction on the dorsal aspects of the distal first metatarsal. Appearance is consistent with osteomyelitis. There is bone marrow edema within the right first proximal phalanx. This is also consistent with osteomyelitis. There is bone marrow edema in the right third distal phalanx terminal tuft. This is consistent with another focus of osteomyelitis. Second through fifth metatarsals are negative. Second, fourth, fifth digits are negative. Previous CT scan was suggestive of possible soft tissue abscess along the plantar aspects of the first and second metatarsal. Focal fluid collection is not identified on present examination. Right midfoot and hindfoot are negative IMPRESSION: 1. Findings consistent with osteomyelitis in the right first metatarsal and proximal phalanx 2. Signal abnormality in the right third distal phalanx and terminal tuft. Osteomyelitis is suspected 3. No focal soft tissue fluid collection. Interpreted and Authenticated by: Lorne Resendiz 04/21/20
[2020-04-21] MEDS ORDERED: diphenhydrAMINE 50 MG/ML VIAL IV ONE (18:39)
[2020-04-21] MEDS ORDERED: diphenhydrAMINE 50 MG/ML VIAL ONE (19:02)
[2020-04-21] MEDS: SENNOSIDES 1 TABLET PO SCH (20:57)
[2020-04-21] MEDS: traZODone HCL 50 MG TABLET PO PRN (21:19)
[2020-04-21] MEDS: diphenhydrAMINE 25 MG CAPSULE PO PRN (23:25)
[2020-04-22] MEDS: HYDROmorphone 0.5 MG/0.5 ML SYRINGE IV PRN ×4 (01:47→22:24)
[2020-04-22] MEDS: diphenhydrAMINE 25 MG CAPSULE PO PRN ×3 (05:45→22:25)
[2020-04-22] MEDS: 0.9 % SODIUM CHLORIDE 10 ML SYRINGE IV SCH ×3 (06:05→22:25)
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
[2020-04-22 07:38] LABS: Basophils # (Auto) 0.07 K/mcL (0.00-0.30); Basophils % (Auto) 0.3 % (0.0-2.0); Eosinophils # (Auto) 0.16 K/mcL (0.00-0.70); Eosinophils % (Auto) 0.8 % (0.0-7.0); Granulocytes % (Auto) 76.8 % (38.0-78.0); Hematocrit 34.7 % (40.1-51.0); Lymphocytes # (Auto) 3.63 K/mcL (1.50-4.80); Lymphocytes % (Auto) 17.7 % (15.5-49.0); Mean Cell Volume 91.8 fL (80.0-100.0); Mean Corpuscular HGB Conc 34.6 g/dL (31.0-36.0); Mean Platelet Volume 9.1 fL (7.4-10.4); Monocytes % (Auto) 4.4 % (1.0-12.0); Platelet Count 480 K/mcL (140-440); RBC 3.78 M/mcL (4.63-6.08); Red Cell Distribution Width 14.5 % (11.5-14.5); WBC 20.5 K/mcL (4.50-11.00)
[2020-04-22] MEDS: DAPTOmycin 500 MG VIAL IV SCH (10:08)
[2020-04-22] MEDS: DOCUSATE SODIUM 100 MG CAPSULE PO SCH ×2 (10:08→22:25)
[2020-04-22] MEDS: MUPIROCIN OINT 2% 22GM NARES SCH ×2 (10:08→22:24)
[2020-04-22] MEDS: FAMOTIDINE 20 MG TABLET PO SCH ×2 (10:08→22:25)
[2020-04-22] MEDS: ENOXAPARIN 40 MG/0.4 ML SYRINGE SQ SCH (10:08)
[2020-04-22] MEDS: ZINC OXIDE TOPICAL SCH ×3 (10:09→22:25)
[2020-04-22 10:13] LABS: Lymphocytes % 18 % (15-49); Monocytes % (Manual) 4 % (1-12); Myelocytes % 1 % (0-0); Platelet Estimate INCREASED (NORMAL); RBC Morphology NORMAL (NORMAL); Segmented Neutrophils % 77 % (38-78)
--- NOTE | 2020-04-22 10:25 | Orthopedic Progress Note ---
SUBJECTIVE Subjective Patient information: Note initiated : 04/22/20 at 10:23 am Service Date, if different from initiated Date: [] Patient: Bob Dupont 60 y/o M admitted on 04/18/20 for right foot redness/swelling. Chief Complaint: [right foot red] Constitutional Vitals: Vital Signs Temp Pulse Resp BP Pulse Ox 98.5 F 78 16 143/79 95 04/22/20 07:31 04/22/20 07:31 04/22/20 07:31 04/22/20 07:31 04/22/20 07:31 Period Temp Pulse Resp BP Sys/Hassan Pulse Ox Last 24 Hr 97.8 F-99.2 F 73-82 16-18 111-146/57-83 93-97 Intake and Output 04/21/20 04/22/20 04/22/20 21:59 05:59 13:59 Intake Total 240 1280 240 Output Total 800 2125 700 Balance -560 -845 -460 Weight 204 lb Intake & Output: Intake & Output 04/21/20 04/22/20 04/22/20 21:59 05:59 13:59 Intake Total 240 1280 240 Output Total 800 2125 700 Balance -560 -845 -460 Weight 204 lb Intake: Oral 240 1280 240 Output: Void Amount 800 2125 700 Other: Meal Dinner Percent of Meal Consumed 100% Feeding Ability Independent Urine Appearance Clear Clear Clear Urine Color Bright Yellow Bright Yellow Pale Urine Odor Normal Normal Stool Size Small Stool Consistency Soft # Voids 1 # Bowel Movements 1 Extremities Exam Extremities exam: Present pedal edema and tenderness Additional comments: foot red, sollen, draining OBJ DATA Labs CBC & Chem 7: 04/22/20 05:35 04/21/20 05:25 Labs: Abnormal Lab Results 04/22/20 04/22/20 04/21/20 05:35 05:35 05:25 WBC 20.5 H RBC 3.78 L Hgb 12.0 L Hct 34.7 L Plt Count 480 H Gran # 15.77 H Mathews # (Auto) Seg Neutrophils % Lymphocytes % Myelocytes % 1 H Platelet Estimate Increased A Carbon Dioxide Glucose Calcium 8.1 L Phosphorus GGT 75 H AST 48 H ALT 67 H Alkaline Phosphatase 135 H Total Protein 4.8 L Albumin 2.2 L Albumin/Globulin Ratio 0.8 L Triglycerides 198 H 04/21/20 04/20/20 04/20/20 05:25 05:21 05:21 WBC 20.4 H 23.5 H RBC 3.50 L 3.66 L Hgb 10.8 L 11.4 L Hct 32.3 L 34.3 L Plt Count Gran # 15.84 H Mathews # (Auto) 1.14 H Seg Neutrophils % 81 H Lymphocytes % 7 L Myelocytes % Platelet Estimate Carbon Dioxide 21 L Glucose 145 H Calcium 8.3 L Phosphorus 2.4 L GGT 92 H AST 58 H ALT 72 H Alkaline Phosphatase 187 H Total Protein 5.2 L Albumin 2.4 L Albumin/Globulin Ratio 0.9 L Triglycerides 191 H Meds: Medications Acetaminophen (Tylenol) 650 mg PO Q6HP PRN; Protocol PRN Reason: Per Pain Protocol/Fever > 101 Daptomycin (Cubicin) 700 mg IV Q24H [facility] Last Admin: 04/22/20 10:08 Dose: 700 mg Documented by: Diphenhydramine HCl (Benadryl) 25 mg PO Q6HP PRN PRN Reason: Allergic Symptoms Last Admin: 04/22/20 05:45 Dose: 25 mg Documented by: Docusate Sodium (Colace) 100 mg PO BID [facility] Last Admin: 04/22/20 10:08 Dose: Not Given Documented by: Enoxaparin Sodium (Lovenox) 40 mg SQ DAILY [facility] Last Admin: 04/22/20 10:08 Dose: 40 mg Documented by: Famotidine (Pepcid) 20 mg PO BID [facility] Last Admin: 04/22/20 10:08 Dose: 20 mg Documented by: Hydromorphone HCl (Dilaudid) 0.5 mg IV Q2HP PRN; Protocol PRN Reason: Per Pain Protocol Last Admin: 04/22/20 01:47 Dose: 0.5 mg Documented by: Acetaminophen (Ofirmev) 650 mg in 65 mls @ 130 mls/hr IV Q6HP PRN; Protocol PRN Reason: PAIN/FEVER > 101 Last Admin: 04/18/20 23:43 Dose: 130 mls/hr Documented by: Mupirocin (Bactroban Oint 2%) 1 dose NARES BID [facility] Last Admin: 04/22/20 10:08 Dose: 1 dose Documented by: Zinc Oxide Ointment 1 dose TOPICAL TID [facility] Last Admin: 04/22/20 10:09 Dose: 1 dose Documented by: Ondansetron HCl (Zofran) 4 mg IV Q4-6HP PRN PRN Reason: Nausea And Vomiting Senna (Senokot) 2 tab PO HS [facility] Last Admin: 04/21/20 20:57 Dose: 2 tab Documented by: Sodium Chloride (Saline Flush) 10 ml IV Q8 [facility] Last Admin: 04/22/20 06:05 Dose: 10 ml Documented by: Trazodone HCl (Desyrel) 25 mg PO HSP PRN PRN Reason: Insomnia Last Admin: 04/21/20 21:19 Dose: 25 mg Documented by: A/P Time Spent With Patient Time: white cell count is not improving, requires prolonged IV antibiotics Possible debridement dressing changed daily Total time spent is greater than 50% in coordination of care (as documented) at patient's floor/unit and/or counseling patient:
--- NOTE | 2020-04-22 12:06 | XRay Report ---
INDICATION: osteomyelitis TECHNIQUE: AP, oblique, lateral right foot COMPARISON: Previous MRI scan dated 04/21/2020 FINDINGS: Previous examination demonstrates bone marrow edema within the right first metatarsal and proximal phalanx. There is also bone marrow edema in the right third distal phalanx There is a soft tissue abnormality in the medial right foot consistent with a wound. There is an overlying dressing. No focal cortical destruction in the right first metatarsal proximal phalanx. Right third distal phalangeal terminal tuft also appears normal. There is degenerative joint disease in the right first metatarsal phalangeal joint with joint space narrowing. No acute right foot fracture IMPRESSION: 1. Bone marrow edema and signal abnormality identified on previous MRI scan within the right first metatarsal and proximal phalanx. Abnormal marrow signal is also identified in the third distal phalangeal terminal tuft 2. No definite cortical destruction are identified on plain film examination. 3. Soft tissue abnormality in the medial aspects of the right foot consistent with a wound Interpreted and Authenticated by: Lorne Resendiz 04/22/20
--- NOTE | 2020-04-22 22:01 | Internal Med Progress Note ---
SUBJECTIVE Subjective Patient information: Note initiated : 04/22/20 at 9:57 pm Service Date, if different from initiated Date: [] Patient: Bob Dupont 60 y/o M admitted on 04/18/20 for right foot redness/swelling. Chief Complaint: [pt is feeling same as yesterday. Expresses frustration regarding surgery. Denies any fever, chills, n/v, diarrhea, body aches.] Constitutional Vitals: Vital Signs Temp Pulse Resp BP Pulse Ox 37.2 C 79 14 130/69 90 04/22/20 20:00 04/22/20 20:00 04/22/20 20:00 04/22/20 20:00 04/22/20 20:00 Period Temp Pulse Resp BP Sys/Hassan Pulse Ox Last 24 Hr 36.8 C-37.3 C 70-80 14-18 111-150/57-85 90-97 Intake and Output 04/22/20 04/22/20 04/22/20 05:59 13:59 21:59 Intake Total 0692 210 9196 Output Total 2125 700 1200 Balance -845 -460 -160 Intake & Output: Intake & Output 04/22/20 04/22/20 04/22/20 05:59 13:59 21:59 Intake Total 2758 377 8627 Output Total 2125 700 1200 Balance -845 -460 -160 Intake: Oral 1152 746 2146 Output: Void Amount 2125 700 1200 Other: Meal Dinner Percent of Meal Consumed 100% Urine Appearance Clear Clear Urine Color Bright Yellow Pale Urine Odor Normal Normal Normal # Bowel Movements 2 Additional findings Additional findings: ao x 3, in nad no thrush chest cta with VBS, decreased BS at bases posteriorly s1 s2 normal, no murmurs bs ++, nttd right foot wrapped in dressing, the great toe is red in color OBJ DATA Labs CBC & Chem 7: 04/22/20 05:35 04/21/20 05:25 Labs: Abnormal Lab Results 04/22/20 04/22/20 04/21/20 05:35 05:35 05:25 WBC 20.5 H RBC 3.78 L Hgb 12.0 L Hct 34.7 L Plt Count 480 H Gran # 15.77 H Bent # (Auto) Seg Neutrophils % Lymphocytes % Myelocytes % 1 H Platelet Estimate Increased A Carbon Dioxide Glucose Calcium 8.1 L Phosphorus GGT 75 H AST 48 H ALT 67 H Alkaline Phosphatase 135 H Total Protein 4.8 L Albumin 2.2 L Albumin/Globulin Ratio 0.8 L Triglycerides 198 H 04/21/20 04/20/20 04/20/20 05:25 05:21 05:21 WBC 20.4 H 23.5 H RBC 3.50 L 3.66 L Hgb 10.8 L 11.4 L Hct 32.3 L 34.3 L Plt Count Gran # 15.84 H Bent # (Auto) 1.14 H Seg Neutrophils % 81 H Lymphocytes % 7 L Myelocytes % Platelet Estimate Carbon Dioxide 21 L Glucose 145 H Calcium 8.3 L Phosphorus 2.4 L GGT 92 H AST 58 H ALT 72 H Alkaline Phosphatase 187 H Total Protein 5.2 L Albumin 2.4 L Albumin/Globulin Ratio 0.9 L Triglycerides 191 H Meds: Medications Acetaminophen (Tylenol) 650 mg PO Q6HP PRN; Protocol PRN Reason: Per Pain Protocol/Fever > 101 Daptomycin (Cubicin) 700 mg IV Q24H [facility] Last Admin: 04/22/20 10:08 Dose: 700 mg Documented by: Diphenhydramine HCl (Benadryl) 25 mg PO Q6HP PRN PRN Reason: Allergic Symptoms Last Admin: 04/22/20 13:36 Dose: 25 mg Documented by: Docusate Sodium (Colace) 100 mg PO BID [facility] Last Admin: 04/22/20 10:08 Dose: Not Given Documented by: Enoxaparin Sodium (Lovenox) 40 mg SQ DAILY [facility] Last Admin: 04/22/20 10:08 Dose: 40 mg Documented by: Famotidine (Pepcid) 20 mg PO BID [facility] Last Admin: 04/22/20 10:08 Dose: 20 mg Documented by: Hydromorphone HCl (Dilaudid) 0.5 mg IV Q2HP PRN; Protocol PRN Reason: Per Pain Protocol Last Admin: 04/22/20 13:35 Dose: 0.5 mg Documented by: Acetaminophen (Ofirmev) 650 mg in 65 mls @ 130 mls/hr IV Q6HP PRN; Protocol PRN Reason: PAIN/FEVER > 101 Last Admin: 04/18/20 23:43 Dose: 130 mls/hr Documented by: Mupirocin (Bactroban Oint 2%) 1 dose NARES BID [facility] Last Admin: 04/22/20 10:08 Dose: 1 dose Documented by: Zinc Oxide Ointment 1 dose TOPICAL TID [facility] Last Admin: 04/22/20 14:54 Dose: 1 dose Documented by: Ondansetron HCl (Zofran) 4 mg IV Q4-6HP PRN PRN Reason: Nausea And Vomiting Senna (Senokot) 2 tab PO HS [facility] Last Admin: 04/21/20 20:57 Dose: 2 tab Documented by: Sodium Chloride (Saline Flush) 10 ml IV Q8 [facility] Last Admin: 04/22/20 13:36 Dose: 10 ml Documented by: Trazodone HCl (Desyrel) 25 mg PO HSP PRN PRN Reason: Insomnia Last Admin: 04/21/20 21:19 Dose: 25 mg Documented by: A/P Narrative A/P Narrative: A: 1. Complicated MRSA bacteremia: 2/2 sets from 04/18 and 1/2 sets from 04/20 are +ve. - source is right foot purulent cellulitis with osteo - risk factors of MRSA nasal colonization and subseq body colonization, trauma - associated with sepsis: now resolving. NO septic shock 2. Rt foot purulent cellulitis with osteomyelitis: s/p surgical debridement on 04/19 - wound Cx growing MRSA - given presence of fluctuance, skin necrosis, skin slough, and extensive tunneling, and persistent leucocytosis; would need further debridement. MRI done 04/22 further confirms osteomyelitis 3. Morbilliform rash: could be sec to Ceftriaxone or topical CHG bathing. Both stopped - no mucosal inv - serum Eosinophil count normal Recommendations: - Consider further surgical debridement of rt foot abscess with osteomyelitis for complete source control - repeat blood Cx every other day until neg for 48 hrs - continue IV Daptomycin 8 mg/kg (=700 mg) q24. Baseline CK normal. will have weekly CK monitoring - will plan for PICC placement once blood Cx neg for 48 hrs - anticipate 6 weeks of IV antibiotics counting from 1st day of negative blood C X. will have pt f/u with Dr Amezquita ([facility] ID physician) after discharge - wound care per Dr Knight - agree with MRSA decolonization for 5 days. Since pt having morbilliform rash, ok to hold on CHG bathing for now. Once gets better, will reintroduce it. Pt counseled to have high touch surfaces at home cleaned with bleach wipes, laundry all clothes with regular detergent and high temp drying will follow Andrew Patel MD Infectious Diseases Time Spent With Patient Time: Total time spent is greater than 50% in coordination of care (as documented) at patient's floor/unit and/or counseling patient: QUALITY VTE Deep Vein Thrombosis/Pulmonary Embolism Present on Admission: No
[2020-04-22] MEDS: SENNOSIDES 1 TABLET PO SCH (22:25)
[2020-04-23] MEDS: 0.9 % SODIUM CHLORIDE 10 ML SYRINGE IV SCH ×3 (06:00→22:10)
[2020-04-23 07:09] LABS: Blood Urea Nitrogen 13 mg/dl (8-23); Calcium 8.6 mg/dl (8.6-10.4); Carbon Dioxide 23 mmol/L (22-30); Chloride 100 mmol/L (96-108); Glomerular Filtration Rate 96; Glucose 91 mg/dL (70-105)
[2020-04-23 07:27] LABS: Basophils # (Auto) 0.07 K/mcL (0.00-0.30); Basophils % (Auto) 0.3 % (0.0-2.0); Eosinophils # (Auto) 0.17 K/mcL (0.00-0.70); Eosinophils % (Auto) 0.7 % (0.0-7.0); Granulocytes % (Auto) 85.4 % (38.0-78.0); Hematocrit 37.4 % (40.1-51.0); Hemoglobin 12.9 g/dL (13.7-17.5); Lymphocytes # (Auto) 2.54 K/mcL (1.50-4.80); Lymphocytes % (Auto) 10.7 % (15.5-49.0); Mean Cell Volume 91.4 fL (80.0-100.0); Mean Corpuscular HGB Conc 34.5 g/dL (31.0-36.0); Mean Platelet Volume 8.6 fL (7.4-10.4); Monocytes % (Auto) 2.9 % (1.0-12.0); Platelet Count 537 K/mcL (140-440); RBC 4.09 M/mcL (4.63-6.08); WBC 23.8 K/mcL (4.50-11.00)
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
[2020-04-23] MEDS: DOCUSATE SODIUM 100 MG CAPSULE PO SCH ×2 (08:28→22:10)
[2020-04-23] MEDS: ENOXAPARIN 40 MG/0.4 ML SYRINGE SQ SCH (08:29)
--- NOTE | 2020-04-23 08:36 | Orthopedic Progress Note ---
SUBJECTIVE Subjective Patient information: Note initiated : 04/23/20 at 8:31 am Service Date, if different from initiated Date: [] Patient: Bob Dupont 60 y/o M admitted on 04/18/20 for right foot redness/swelling. Chief Complaint: [right foot infection] Constitutional Vitals: Vital Signs Temp Pulse Resp BP Pulse Ox 98.1 F 78 18 137/79 94 04/23/20 06:51 04/23/20 06:51 04/23/20 06:51 04/23/20 06:51 04/23/20 06:51 Period Temp Pulse Resp BP Sys/Hassan Pulse Ox Last 24 Hr 98.1 F-99.8 F 70-87 14-18 125-150/69-85 90-98 Intake and Output 04/22/20 04/23/20 04/23/20 21:59 05:59 13:59 Intake Total 1040 800 Output Total 1200 2300 Balance -160 -1500 Weight 202 lb 6.4 oz Intake & Output: Intake & Output 04/22/20 04/23/20 04/23/20 21:59 05:59 13:59 Intake Total 1040 800 Output Total 1200 2300 Balance -160 -1500 Weight 202 lb 6.4 oz Intake: Oral 1040 GI Tube Flush 800 Output: Void Amount 1200 2300 Other: Meal Dinner Percent of Meal Consumed 100% Urine Odor Normal Stool Color Brown Yellow # Bowel Movements 2 Extremities Exam Extremities exam: Present pedal edema Additional comments: Serous and purulent drainage from medial incision right foot, continued area of necrotic tissue dorsal aspect first interphalangeal and metatarsal space. OBJ DATA Labs CBC & Chem 7: 04/23/20 04:50 04/23/20 04:50 Labs: Abnormal Lab Results 04/23/20 04/22/20 04/22/20 04:50 05:35 05:35 WBC 23.8 H 20.5 H RBC 4.09 L 3.78 L Hgb 12.9 L 12.0 L Hct 37.4 L 34.7 L Plt Count 537 H 480 H Gran % 85.4 H Lymph % (Auto) 10.7 L Gran # 20.[address] # (Auto) Seg Neutrophils % Lymphocytes % Myelocytes % 1 H Platelet Estimate Increased A Calcium GGT AST ALT Alkaline Phosphatase Total Protein Albumin Albumin/Globulin Ratio Triglycerides 04/21/20 04/21/20 04/20/20 05:25 05:25 05:21 WBC 20.4 H RBC 3.50 L Hgb 10.8 L Hct 32.3 L Plt Count Gran % Lymph % (Auto) Gran # 15.[address] [place] # (Auto) 1.14 H Seg Neutrophils % 81 H Lymphocytes % 7 L Myelocytes % Platelet Estimate Calcium 8.1 L GGT 75 H AST 48 H ALT 67 H Alkaline Phosphatase 135 H Total Protein 4.8 L Albumin 2.2 L Albumin/Globulin Ratio 0.8 L Triglycerides 198 H Meds: Medications Acetaminophen (Tylenol) 650 mg PO Q6HP PRN; Protocol PRN Reason: Per Pain Protocol/Fever > 101 Daptomycin (Cubicin) 700 mg IV Q24H [facility] Last Admin: 04/22/20 10:08 Dose: 700 mg Documented by: Diphenhydramine HCl (Benadryl) 25 mg PO Q6HP PRN PRN Reason: Allergic Symptoms Last Admin: 04/22/20 22:25 Dose: 25 mg Documented by: Docusate Sodium (Colace) 100 mg PO BID [facility] Last Admin: 04/23/20 08:28 Dose: Not Given Documented by: Enoxaparin Sodium (Lovenox) 40 mg SQ DAILY [facility] Last Admin: 04/23/20 08:29 Dose: Not Given Documented by: Famotidine (Pepcid) 20 mg PO BID [facility] Last Admin: 04/22/20 22:25 Dose: 20 mg Documented by: Hydromorphone HCl (Dilaudid) 0.5 mg IV Q2HP PRN; Protocol PRN Reason: Per Pain Protocol Last Admin: 04/22/20 22:24 Dose: 0.5 mg Documented by: Acetaminophen (Ofirmev) 650 mg in 65 mls @ 130 mls/hr IV Q6HP PRN; Protocol PRN Reason: PAIN/FEVER > 101 Last Admin: 04/18/20 23:43 Dose: 130 mls/hr Documented by: Mupirocin (Bactroban Oint 2%) 1 dose NARES BID [facility] Last Admin: 04/22/20 22:24 Dose: 1 dose Documented by: Zinc Oxide Ointment 1 dose TOPICAL TID [facility] Last Admin: 04/22/20 22:25 Dose: 1 dose Documented by: Ondansetron HCl (Zofran) 4 mg IV Q4-6HP PRN PRN Reason: Nausea And Vomiting Senna (Senokot) 2 tab PO HS [facility] Last Admin: 04/22/20 22:25 Dose: Not Given Documented by: Sodium Chloride (Saline Flush) 10 ml IV Q8 [facility] Last Admin: 04/23/20 06:00 Dose: 10 ml Documented by: Trazodone HCl (Desyrel) 25 mg PO HSP PRN PRN Reason: Insomnia Last Admin: 04/21/20 21:19 Dose: 25 mg Documented by: A/P Time Spent With Patient Time: Total time spent is greater than 50% in coordination of care (as documented) at patient's floor/unit and/or counseling patient: Due to worsening infection, patient requires repeat debridement with fasciotomy and bone biopsy of suspected osteomyelitis of the first metatarsal phalangeal joint of the right foot. Continue inpatient stay until blood cultures and white count trended normal. * Plan: Surgical debridement with bone biopsy right foot
[2020-04-23] MEDS ORDERED: ALBUMIN HUMAN 12.5 GM/50 ML BAG IV ONE ×2 (09:39→09:53)
[2020-04-23] MEDS ORDERED: GLYCOPYRROLATE 0.2 MG/ML VIAL IV ONE (09:53)
[2020-04-23] MEDS ORDERED: ONDANSETRON 4 MG/2 ML VIAL ONE (09:53)
[2020-04-23] MEDS ORDERED: fentaNYL 250 MCG/5 ML VIAL IV ONE (09:53)
[2020-04-23] MEDS ORDERED: KETAMINE 100 MG/ML ML ONE (09:53)
[2020-04-23] MEDS ORDERED: ePHEDrine 50 MG/ML AMPUL IV ONE (09:53)
[2020-04-23] MEDS ORDERED: LIDOCAINE HCL/PF 100 MG/5 ML SYRINGE IV ONE (09:53)
[2020-04-23] MEDS ORDERED: PROPOFOL 200 MG/20 ML VIAL IV ONE (09:53)
[2020-04-23] MEDS ORDERED: MIDAZOLAM 2 MG/2 ML VIAL ONE (09:53)
--- NOTE | 2020-04-23 09:56 | XRay Report ---
INDICATION: pre-op TECHNIQUE: AP portable semiupright chest x-ray COMPARISON: Previous examination dated 08/14/2005 FINDINGS: Lungs:Lungs are negative. No focal pulmonary parenchymal infiltrate or mass Heart, vascular:No significant cardiomegaly. Pulmonary vascularity is normal. No pulmonary edema or pulmonary congestion Mediastinum, elvin:No mediastinal widening. No hilar mass Pleura:No pleural fluid. No pleural-based mass or calcification Skeletal:Negative. IMPRESSION: Negative AP chest x-ray Interpreted and Authenticated by: Lorne Resendiz 04/23/20
[2020-04-23] MEDS ORDERED: BACITRACIN 50,000 UNIT VIAL IR ONE (10:24)
[2020-04-23] MEDS: FAMOTIDINE 20 MG TABLET PO SCH ×2 (10:28→22:09)
[2020-04-23] MEDS ORDERED: diphenhydrAMINE 50 MG/ML VIAL IV PRN (10:48)
[2020-04-23] MEDS ORDERED: FLUMAZENIL 0.1 MG/ML ML IV PRN (10:48)
[2020-04-23] MEDS ORDERED: IPRATROPIUM/ALBUTEROL 3 ML AMPUL.NEB NEB PRN (10:48)
[2020-04-23] MEDS ORDERED: NALOXONE HCL 0.4 MG/ML VIAL IV PRN (10:48)
[2020-04-23] MEDS ORDERED: METHOCARBAMOL 1,000 MG/10 ML VIAL IV PRN (10:48)
[2020-04-23] MEDS ORDERED: LABETALOL 5 MG/ML ML IV PRN (10:48)
[2020-04-23] MEDS ORDERED: MEPERIDINE 25 MG/ML SYRINGE IV PRN (10:48)
[2020-04-23] MEDS ORDERED: PROMETHAZINE 25 MG/ML VIAL IV PRN (10:48)
[2020-04-23] MEDS ORDERED: ONDANSETRON 4 MG/2 ML VIAL IV PRN (10:48)
[2020-04-23] MEDS ORDERED: METOPROLOL TARTRATE 5 MG/5 ML VIAL IV PRN (10:48)
[2020-04-23] MEDS ORDERED: HYDROmorphone 0.5 MG/0.5 ML SYRINGE IV PRN (10:48)
[2020-04-23] MEDS ORDERED: ATROPINE SULFATE 0.4 MG/ML VIAL IV PRN (10:48)
[2020-04-23] MEDS ORDERED: ePHEDrine 50 MG/ML AMPUL IV PRN (10:48)
--- NOTE | 2020-04-23 11:07 | Brief Operative Note ---
Brief Operative Note Date of procedure: 04/23/20 Pre-op diagnosis: Infectious cellulitis right foot, osteomyelitis right foot Post-op diagnosis: same Procedure: Debridement with bone biopsy right foot Grafts/Implants: No Anesthesia: GETA Complications: none Surgeon: Simon Knight Estimated blood loss (cc): 100 Specimens Removed/Pathology: other (bone cutlure and pathology, deep tissue culture) Condition: stable Disposition: floor
[2020-04-23] MEDS: fentaNYL 100 MCG/2 ML VIAL IV PRN ×3 (11:17→11:29)
[2020-04-23] MEDS: MUPIROCIN OINT 2% 22GM NARES SCH ×2 (11:53→22:10)
[2020-04-23] MEDS: DAPTOmycin 500 MG VIAL IV SCH (11:54)
[2020-04-23] MEDS: ZINC OXIDE TOPICAL SCH ×3 (11:55→22:10)
[2020-04-23] MEDS: HYDROcodone/APAP 5/325MG TABLET PO PRN ×2 (12:22→22:09)
[2020-04-23] MEDS: HYDROmorphone 0.5 MG/0.5 ML SYRINGE IV PRN (15:38)
[2020-04-23] MEDS: SENNOSIDES 1 TABLET PO SCH (22:10)
[2020-04-24] MEDS: 0.9 % SODIUM CHLORIDE 10 ML SYRINGE IV SCH ×3 (05:57→23:12)
[2020-04-24 07:11] LABS: Basophils # (Auto) 0.09 K/mcL (0.00-0.30); Basophils % (Auto) 0.5 % (0.0-2.0); Eosinophils % (Auto) 1.1 % (0.0-7.0); Granulocytes % (Auto) 76.8 % (38.0-78.0); Hematocrit 36.2 % (40.1-51.0); Hemoglobin 11.8 g/dL (13.7-17.5); Lymphocytes # (Auto) 2.77 K/mcL (1.50-4.80); Lymphocytes % (Auto) 15.4 % (15.5-49.0); Mean Cell Volume 95.5 fL (80.0-100.0); Mean Corpuscular HGB Conc 32.6 g/dL (31.0-36.0); Mean Platelet Volume 8.5 fL (7.4-10.4); Monocytes # (Auto) 1.11 K/mcL (0.10-0.90); Monocytes % (Auto) 6.2 % (1.0-12.0); Platelet Count 534 K/mcL (140-440); RBC 3.79 M/mcL (4.63-6.08); Red Cell Distribution Width 14.3 % (11.5-14.5); WBC 17.9 K/mcL (4.50-11.00)
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
[2020-04-24] MEDS: HYDROcodone/APAP 5/325MG TABLET PO PRN ×3 (07:34→22:33)
--- NOTE | 2020-04-24 07:35 | Orthopedic Progress Note ---
SUBJECTIVE Subjective Patient information: Note initiated : 04/24/20 at 7:32 am Service Date, if different from initiated Date: [] Patient: Bob Dupont 60 y/o M admitted on 04/18/20 for right foot redness/swelling. Chief Complaint: [right foot infection] Constitutional Vitals: Vital Signs Temp Pulse Resp BP Pulse Ox 97.7 F 67 16 119/71 97 04/24/20 07:06 04/24/20 07:06 04/24/20 07:06 04/24/20 07:06 04/24/20 07:06 Period Temp Pulse Resp BP Sys/Hassan Pulse Ox Last 24 Hr 97.3 F-99.2 F 63-107 - 109-149/58-86 92-100 Intake and Output 04/23/20 04/24/20 04/24/20 21:59 05:59 13:59 Intake Total 480 800 Output Total 1150 2800 Balance -670 -2000 Weight 201 lb Intake & Output: Intake & Output 04/23/20 04/24/20 04/24/20 21:59 05:59 13:59 Intake Total 480 800 Output Total 1150 2800 Balance -670 -2000 Weight 201 lb Intake: Oral 480 800 Output: Void Amount 1150 2800 Other: Urine Appearance Clear Clear Urine Color Dark Yellow Bright Yellow Urine Odor Normal Normal OBJ DATA Labs CBC & Chem 7: 04/24/20 04:48 04/24/20 04:48 Labs: Abnormal Lab Results 04/24/20 04/23/20 04/22/20 04:48 04:50 05:35 WBC 17.9 H 23.8 H RBC 3.79 L 4.09 L Hgb 11.8 L 12.9 L Hct 36.2 L 37.4 L Plt Count 534 H 537 H Gran % 85.4 H Lymph % (Auto) 15.4 L 10.7 L Gran # 13.77 H 20.27 H [place] # (Auto) 1.11 H Myelocytes % 1 H Platelet Estimate Increased A 04/22/20 05:35 WBC 20.5 H RBC 3.78 L Hgb 12.0 L Hct 34.7 L Plt Count 480 H Gran % Lymph % (Auto) Gran # 15.77 H [place] # (Auto) Myelocytes % Platelet Estimate Meds: Medications Acetaminophen (Tylenol) 650 mg PO Q6HP PRN; Protocol PRN Reason: Per Pain Protocol/Fever > 101 Hydrocodone Bitart/Acetaminophen ([place] 5/325mg) 1 - 2 tab PO Q4HP PRN; Protocol PRN Reason: Per Pain Protocol Last Admin: 04/23/20 22:09 Dose: 1 tab Documented by: Daptomycin (Cubicin) 700 mg IV Q24H [facility] Last Admin: 04/23/20 11:54 Dose: 700 mg Documented by: Diphenhydramine HCl (Benadryl) 25 mg PO Q6HP PRN PRN Reason: Allergic Symptoms Last Admin: 04/22/20 22:25 Dose: 25 mg Documented by: Docusate Sodium (Colace) 100 mg PO BID [facility] Last Admin: 04/23/20 22:10 Dose: Not Given Documented by: Enoxaparin Sodium (Lovenox) 40 mg SQ DAILY [facility] Last Admin: 04/23/20 08:29 Dose: Not Given Documented by: Famotidine (Pepcid) 20 mg PO BID [facility] Last Admin: 04/23/20 22:09 Dose: 20 mg Documented by: Hydromorphone HCl (Dilaudid) 0.5 mg IV Q2HP PRN; Protocol PRN Reason: Per Pain Protocol Last Admin: 04/23/20 15:38 Dose: 0.5 mg Documented by: Acetaminophen (Ofirmev) 650 mg in 65 mls @ 130 mls/hr IV Q6HP PRN; Protocol PRN Reason: PAIN/FEVER > 101 Last Admin: 04/18/20 23:43 Dose: 130 mls/hr Documented by: Mupirocin (Bactroban Oint 2%) 1 dose NARES BID [facility] Last Admin: 04/23/20 22:10 Dose: 1 dose Documented by: Zinc Oxide Ointment 1 dose TOPICAL TID [facility] Last Admin: 04/23/20 22:10 Dose: Not Given Documented by: Ondansetron HCl (Zofran) 4 mg IV Q4-6HP PRN PRN Reason: Nausea And Vomiting Senna (Senokot) 2 tab PO HS [facility] Last Admin: 04/23/20 22:10 Dose: Not Given Documented by: Sodium Chloride (Saline Flush) 10 ml IV Q8 [facility] Last Admin: 04/24/20 05:57 Dose: 10 ml Documented by: Trazodone HCl (Desyrel) 25 mg PO HSP PRN PRN Reason: Insomnia Last Admin: 04/21/20 21:19 Dose: 25 mg Documented by: A/P Time Spent With Patient Time: Total time spent is greater than 50% in coordination of care (as documented) at patient's floor/unit and/or counseling patient: Labs trending better. Patient pain is about 4/10, perhaps trending down. Will change dressings daily with gentamicin (GCB), xeroform / adaptic, AMD gauze
[2020-04-24 07:41] LABS: Blood Urea Nitrogen 16 mg/dl (8-23); Calcium 8.5 mg/dl (8.6-10.4); Carbon Dioxide 25 mmol/L (22-30); Chloride 98 mmol/L (96-108); Glomerular Filtration Rate 96; Glucose 89 mg/dL (70-105)
--- NOTE | 2020-04-24 07:52 | Operative Note ---
DATE OF OPERATION: 04/23/2020 PREOPERATIVE DIAGNOSIS: Infectious cellulitis right foot, osteomyelitis right foot. POSTOPERATIVE DIAGNOSIS: Infectious cellulitis right foot, osteomyelitis right foot. PROCEDURE: Debridement with bone biopsy right foot. IMPLANTS: None. ANESTHESIA: GETA. COMPLICATIONS: None. ESTIMATED BLOOD LOSS: 100 mL SPECIMENS: Bone culture and pathology, deep tissue culture, right foot. CONDITION: Stable. DISPOSITION: Floor. DESCRIPTION OF PROCEDURE: The patient was brought to the operating room and placed on the operating table in the supine position for antibiotics initiated by Anesthesia. GETA anesthesia also initiated. The right lower extremity was scrubbed, prepped and draped in the usual aseptic fashion. There was noted to be a large 2.5 cm in diameter necrotic tissue on the first webspace directly overlying the lateral portion of the first metatarsophalangeal joint. This area is in line with the previous blister formation present dislocation. The tissue was resected which was found to be necrotic. Additional necrotic tissue was found. Foot was expressed of purulent drainage. According to the MRI, there is a large abscess in the plantar aspect of the foot. Access was gained through an incision on the dorsal first metatarsal/second metatarsal interspace. Deep tissues were probed with scissors and a 3,000 mL bag of saline with 50,000 units of bacitracin was used under pulse lavage to irrigate the deep space. Additional debridement of necrotic tissue was performed. A different fibrous slough was noted and debrided with a rongeur. A culture of the bone was taken with a rongeur sample. An additional sample was taken for micro and pathology respectively and a deep tissue swab was taken. Following the debridement, an additional 3000 mL of saline with 50,000 units of bacitracin was used to irrigate these areas under pulse lavage. No remaining necrotic tissue was present. The remaining tissue was found to be of a normal color and configuration. The area was gently packed with Xeroform and 4 x 4 gauze, Luis wrap, and Kerlix were applied. Luis wrap was under no compression. The patient tolerated the procedure and anesthesia well. He is returned to the postoperative care unit to be evaluated and returned to the floor when stabilized. He will continue intravenous antibiotic therapy and will be closely monitored on a daily basis. AMARILIS:nancy Job ID: [id number] Doc ID: [id number] Simon Knight DPM
[2020-04-24] MEDS: FAMOTIDINE 20 MG TABLET PO SCH ×2 (09:56→23:10)
[2020-04-24] MEDS: ENOXAPARIN 40 MG/0.4 ML SYRINGE SQ SCH (09:56)
[2020-04-24] MEDS: MUPIROCIN OINT 2% 22GM NARES SCH ×2 (09:57→23:11)
[2020-04-24] MEDS: ZINC OXIDE TOPICAL SCH ×3 (09:57→23:11)
[2020-04-24] MEDS: DAPTOmycin 500 MG VIAL IV SCH (09:57)
[2020-04-24] MEDS: DOCUSATE SODIUM 100 MG CAPSULE PO SCH ×2 (09:58→23:11)
[2020-04-24] MEDS: GENTAMICIN SULFATE 40 MG, CLINDAMYCIN 300 MG, BACITRACIN 25,000 UNIT in SODIUM CHLORIDE... IRR SCH ×2 (10:30→22:36)
[2020-04-24] MEDS: HYDROmorphone 0.5 MG/0.5 ML SYRINGE IV PRN (14:57)
--- NOTE | 2020-04-24 17:08 | General Surgery Consult Note ---
HPI Data of Consult Consult date: 04/24/20 Requesting physician: Simon Knight Primary Care Provider: Lorne Back DO Family Provider: Consultation requested for ongoing wound care / management and assessment for HBOT in adjuvant setting. Reviewed details pertaining to this admission and chronology of events from admission until today. I saw this gentleman in room 108, along with RAYMOND Crowell and patient's in room. Consult Narrative Patient Information: Note initiated : 04/24/20 at 4:47 pm Service Date, if different from initiated Date: [] Patient: Bob Dupont 60 y/o M admitted on 04/18/20 for right foot redness /swelling. Chief Complaint: [] cc:: CC: Yulisa Meléndez Constitutional Constitutional: Present as per HPI Musculoskeletal Musculoskeletal: Present as per HPI, abnormal gait, arthralgias and joint swelling Additional comments: Was in usual state oh health until the trauma prior to his admission . Integumentary Integumentary: Present as per HPI and other Additional comments: Open wounds RIGHT forefoot great toe and dorsal foot. PFSH PFSH All Active Problems Strain of great toe (Acute) Contusion of foot, right (Acute) Cellulitis of right foot (Acute) Elevated WBC count (Acute) Environmental allergies (Chronic) Rotator cuff impingement syndrome (Chronic) FH: CAD (coronary artery disease) (Chronic) Osteoarthritis (Chronic) Viral URI with cough (Acute) Microhematuria (Chronic) Bilateral otitis media (Acute) URI (upper respiratory infection) (Acute) Ureteral calculus (Chronic) Trochanteric bursitis (Chronic) Tinea cruris (Chronic) Reactive airway disease (Chronic) Pyelonephritis (Chronic) Onychomycosis (Chronic) Obstructive uropathy (Chronic 06/13/13) Insomnia (Chronic) Essential hypertension (Chronic) Hyperlipidemia (Chronic) Hearing loss (Chronic) Erectile dysfunction (Chronic) Dermatitis (Chronic) Osteoarthritis of hip (Chronic 01/04/15) Colon adenoma (Chronic 12/15/14) Bronchitis (Chronic 01/04/15) Asthma (Chronic) Abdominal pain (Chronic) Medical History Abdominal pain (Chronic) Asthma (Chronic) Bronchitis (Chronic 01/04/15) Calculus of kidney (Resolved) Colon adenoma (Chronic 12/15/14) 06/16/17. 5-7 year follow-up per Dr. Juarez Dermatitis (Chronic) forehead, likely rosacea Erectile dysfunction (Chronic) Well-controlled on Viagra 10 mg as needed. Essential hypertension (Chronic) FH: CAD (coronary artery disease) (Chronic) Father Hearing loss (Chronic) Hyperlipidemia (Chronic) Well-controlled on Lipitor 10 mg daily. No myalgias. Insomnia (Chronic) Microhematuria (Chronic) H/O Obstructive uropathy (Chronic 06/13/13) Onychomycosis (Chronic) Osteoarthritis (Chronic) Osteoarthritis of hip (Chronic 01/04/15) Pyelonephritis (Chronic) Reactive airway disease (Chronic) Tinea cruris (Chronic) Trochanteric bursitis (Chronic) Ureteral calculus (Chronic) passed Surgical History H/O colonoscopy (Resolved 06/16/17) 05/18/12 Colon ascending; tubular adenoma. Hemorrhoids. 06/16/17 TA, 5-[address] Juarez. 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 well-balanced diet: daily or most days during the past year weight has: remained stable smoking status: Never smoker alcohol intake frequency: does not drink substance use type: does not use MEDS/ALLERGIES Home Medications and Allergies Home Medications Medication Instructions Recorded Confirmed Type atorvastatin 10 mg PO QHS 04/18/20 04/18/20 History sildenafil (pulm.hypertension) 10 - 20 mg PO DAILYP PRN 04/20/20 04/20/20 History Allergies Allergy/AdvReac Type Severity Reaction Status Date / Time morphine AdvReac Mild Hallucinati Verified 04/18/20 18:40 ng Physical Examination Vital Signs Vital signs: Temp Pulse Resp BP Pulse Ox 98.3 F 67 18 128/67 96 04/24/20 16:00 04/24/20 16:00 04/24/20 16:00 04/24/20 16:00 04/24/20 16:00 General physical appearance General physical exam: well developed, well nourished, no distress and moderate pain Eyes Eye exam: PERRL and normal ocular movement ENT ENT exam: normal pinna, normal mucosa and no congestion Head Head exam IM: Present atraumatic and normocephalic Neck Neck exam: no masses, trachea midline and no venous distension Cardiovascular Cardiovascular exam IM: Present normal rate and rhythm Respiratory Respiratory exam: normal expansion and clear to percussion Abdomen Abdomen: Present soft, non tender and bowel sounds Integumentary Integumentary: Present other (Open post surgical wouns with exposed muscle tendon in wound base a patch of black eschar over greast toe MPJ RIGHT foot medial and dorsal forefoot. SEE photograph) Neurologic Neurologic: Present normal coordination, normal sensation and other (RIGHT foot is warm dry, pink sensate in non wound sites ) Musculoskeletal Musculoskeletal: Present other (OPN wounds over RIGHT great toe forefoot medial and dorsal aspet at sites of debridement and decompression fasciotomies.) Psychiatric Psychiatric: Present oriented to time, oriented to person, oriented to place, speech is normal and other (CALM and composed but appropriate situational anxiety about future course treament / progress) Results Labs Result diagrams: 04/24/20 04:48 04/24/20 04:48 Labs: Abnormal lab results 04/24/20 04/24/20 Range/Units 04:48 04:48 WBC 17.9 H (4.50-11.00) K/mcL RBC 3.79 L (4.63-6.08) M/mcL Hgb 11.8 L (13.7-17.5) g/dL Hct 36.2 L (40.1-51.0) % Plt Count 534 H (140-440) K/mcL Lymph % (Auto) 15.4 L (15.5-49.0) % Gran # 13.77 H (1.80-8.00) K/mcL [place] # (Auto) 1.11 H (0.10-0.90) K/mcL Calcium 8.5 L (8.6-10.4) mg/dl Diabetes panel 04/24/20 Range/Units 04:48 Sodium 134 (133-145) mmol/L Potassium 4.8 (3.3-5.1) mmol/L Chloride 98 (96-108) mmol/L Carbon Dioxide 25 (22-30) mmol/L BUN 16 (8-23) mg/dl Creatinine 0.8 (0.7-1.2) mg/dl Glucose 89 (70-105) mg/dL Calcium 8.5 L (8.6-10.4) mg/dl Calcium panel 04/24/20 Range/Units 04:48 Calcium 8.5 L (8.6-10.4) mg/dl Pituitary panel 04/24/20 Range/Units 04:48 Sodium 134 (133-145) mmol/L Potassium 4.8 (3.3-5.1) mmol/L Chloride 98 (96-108) mmol/L Carbon Dioxide 25 (22-30) mmol/L BUN 16 (8-23) mg/dl Creatinine 0.8 (0.7-1.2) mg/dl Glucose 89 (70-105) mg/dL Calcium 8.5 L (8.6-10.4) mg/dl Adrenal panel 04/24/20 Range/Units 04:48 Sodium 134 (133-145) mmol/L Potassium 4.8 (3.3-5.1) mmol/L Chloride 98 (96-108) mmol/L Carbon Dioxide 25 (22-30) mmol/L BUN 16 (8-23) mg/dl Creatinine 0.8 (0.7-1.2) mg/dl Glucose 89 (70-105) mg/dL Calcium 8.5 L (8.6-10.4) mg/dl All other labs normal. A/P Narrative A/P Narrative: Assessment: Post operative open surgical wounds after surgeries for trauma and crush syndrome of RIGHT forefoot, great toe. Ongoing IV antibiotics DAPTOMYCIN, Local wound care MIST with antibiotic soaked dressings ONGOING. Plan: Agree with present management. Will reassess later for non invasive studies to assess circulation, oxygenation and wound progression. Have gone over anticipated course of management. Further recommendation as his condition evolves. Patient will need additional surgical procedures and adjuvant treatment mo dalities. Time Spent With Patient Time: Total time spent is greater than 50% in coordination of care (as documented) at patient's floor/unit and/or counseling patient: Total time spent with greater than 50% in coordination of care (as documented) at patient's floor/unit and/or counseling patient:: Greater than 35 minutes
--- NOTE | 2020-04-24 20:54 | Internal Med Progress Note ---
SUBJECTIVE Subjective Patient information: Note initiated : 04/24/20 at 8:51 pm Service Date, if different from initiated Date: [] Patient: Bob Dupont 60 y/o M admitted on 04/18/20 for right foot redness/swelling. Chief Complaint: [Pt feels better after his surgery today. Reports mild foot pain. Denies any fever, chills, n/v, diarrhea. ] Constitutional Vitals: Vital Signs Temp Pulse Resp BP Pulse Ox 36.7 C 75 12 125/75 94 04/24/20 20:25 04/24/20 20:25 04/24/20 20:25 04/24/20 20:25 04/24/20 20:25 Period Temp Pulse Resp BP Sys/Hassan Pulse Ox Last 24 Hr 36.3 C-37.2 C 67-87 12- 111-128/62-75 93-97 Intake and Output 04/24/20 04/24/20 04/24/20 05:59 13:59 21:59 Intake Total 155 560 2586 Output Total 2800 1800 Balance -2000 480 -360 Intake & Output: Intake & Output 04/24/20 04/24/20 04/24/20 05:59 13:59 21:59 Intake Total 167 695 3001 Output Total 2800 1800 Balance -2000 480 -360 Intake: Oral 297 323 0710 Output: Void Amount 2800 1800 Other: Meal Breakfast Dinner Percent of Meal Consumed 100% 100% Feeding Ability Independent Independent Urine Appearance Clear Clear Urine Color Bright Yellow Bright Yellow Urine Odor Normal Normal Additional findings Additional findings: ao x 3, in nad right foot wound: has 2 ulcers n dorsal aspect at sits of surgical debridement. No fluctuance. No purulent drainage. No necrosis or dark discoloration seen. OBJ DATA Labs CBC & Chem 7: 04/24/20 04:48 04/24/20 04:48 Labs: Abnormal Lab Results 04/24/20 04/24/20 04/23/20 04:48 04:48 04:50 WBC 17.9 H 23.8 H RBC 3.79 L 4.09 L Hgb 11.8 L 12.9 L Hct 36.2 L 37.4 L Plt Count 534 H 537 H Gran % 85.4 H Lymph % (Auto) 15.4 L 10.7 L Gran # 13.77 H 20.27 H [place] # (Auto) 1.11 H Myelocytes % Platelet Estimate Calcium 8.5 L 04/22/20 04/22/20 05:35 05:35 WBC 20.5 H RBC 3.78 L Hgb 12.0 L Hct 34.7 L Plt Count 480 H Gran % Lymph % (Auto) Gran # 15.77 H [place] # (Auto) Myelocytes % 1 H Platelet Estimate Increased A Calcium Meds: Medications Acetaminophen (Tylenol) 650 mg PO Q6HP PRN; Protocol PRN Reason: Per Pain Protocol/Fever > 101 Hydrocodone Bitart/Acetaminophen ([place] 5/325mg) 1 - 2 tab PO Q4HP PRN; Protocol PRN Reason: Per Pain Protocol Last Admin: 04/24/20 17:57 Dose: 1 tab Documented by: Daptomycin (Cubicin) 700 mg IV Q24H [facility] Last Admin: 04/24/20 09:57 Dose: 700 mg Documented by: Diphenhydramine HCl (Benadryl) 25 mg PO Q6HP PRN PRN Reason: Allergic Symptoms Last Admin: 04/22/20 22:25 Dose: 25 mg Documented by: Docusate Sodium (Colace) 100 mg PO BID [facility] Last Admin: 04/24/20 09:58 Dose: Not Given Documented by: Enoxaparin Sodium (Lovenox) 40 mg SQ DAILY [facility] Last Admin: 04/24/20 09:56 Dose: 40 mg Documented by: Famotidine (Pepcid) 20 mg PO BID [facility] Last Admin: 04/24/20 09:56 Dose: 20 mg Documented by: Hydromorphone HCl (Dilaudid) 0.5 mg IV Q2HP PRN; Protocol PRN Reason: Per Pain Protocol Last Admin: 04/24/20 14:57 Dose: 0.5 mg Documented by: Acetaminophen (Ofirmev) 650 mg in 65 mls @ 130 mls/hr IV Q6HP PRN; Protocol PRN Reason: PAIN/FEVER > 101 Last Admin: 04/18/20 23:43 Dose: 130 mls/hr Documented by: Gentamicin Sulfate 40 mg/Clindamycin Phosphate 300 mg/Bacitracin 25,000 unit/ Sodium Chloride 503 mls @ 0 mls/hr IRR Q12H [facility] Last Admin: 04/24/20 10:30 Dose: 40 mls/hr Documented by: Melatonin (Melatonin 3mg Tablet) 3 mg PO QHS [facility] Mupirocin (Bactroban Oint 2%) 1 dose NARES BID [facility] Stop: 04/24/20 23:59 Last Admin: 04/24/20 09:57 Dose: 1 dose Documented by: Zinc Oxide Ointment 1 dose TOPICAL TID [facility] Last Admin: 04/24/20 14:57 Dose: 1 dose Documented by: Ondansetron HCl (Zofran) 4 mg IV Q4-6HP PRN PRN Reason: Nausea And Vomiting Senna (Senokot) 2 tab PO HS [facility] Last Admin: 04/23/20 22:10 Dose: Not Given Documented by: Sodium Chloride (Saline Flush) 10 ml IV Q8 [facility] Last Admin: 04/24/20 14:57 Dose: 10 ml Documented by: Trazodone HCl (Desyrel) 25 mg PO HSP PRN PRN Reason: Insomnia Last Admin: 04/21/20 21:19 Dose: 25 mg Documented by: A/P Narrative A/P Narrative: A: 1. Complicated MRSA bacteremia: pt getting better - 2/2 sets from 04/18 and 1/2 sets from 04/20 are +ve. Blood Cx from 04/22 NGTD - source is right foot purulent cellulitis with osteo - risk factors of MRSA nasal colonization and subseq body colonization, trauma - associated with sepsis: resolved. NO septic shock 2. Rt foot purulent cellulitis with osteomyelitis: s/p surgical debridement on 04/19 and 04/24 - wound Cx growing MRSA - MRI done 04/22 further confirms osteomyelitis 3. Morbilliform rash: completely resolved - could be sec to Ceftriaxone or topical CHG bathing. Both stopped - no mucosal inv - serum Eosinophil count normal Recommendations: - repeat blood Cx every other day until neg for 48 hrs - continue IV Daptomycin 8 mg/kg (=700 mg) q24. Baseline CK normal. will have weekly CK monitoring - will plan for PICC placement once blood Cx neg for 48 hrs - anticipate 6 weeks of IV antibiotics counting from 1st day of negative blood CX. will have pt f/u with Dr Amezquita ([facility] physician) after discharge - wound care per Dr Knight/Dr Bryan - resume CHG and mupirocin decolonization, for a 5 day course Andrew Patel MD Infectious Diseases Time Spent With Patient Time: Total time spent is greater than 50% in coordination of care (as documented) at patient's floor/unit and/or counseling patient: QUALITY VTE Deep Vein Thrombosis/Pulmonary Embolism Present on Admission: No
[2020-04-24] MEDS: MELATONIN 3 MG TABLET PO SCH (23:10)
[2020-04-24] MEDS: SENNOSIDES 1 TABLET PO SCH (23:12)
[2020-04-25] MEDS: HYDROcodone/APAP 5/325MG TABLET PO PRN ×4 (05:50→21:41)
[2020-04-25] MEDS: 0.9 % SODIUM CHLORIDE 10 ML SYRINGE IV SCH ×3 (05:51→22:54)
[2020-04-25 06:51] LABS: Basophils # (Auto) 0.05 K/mcL (0.00-0.30); Basophils % (Auto) 0.4 % (0.0-2.0); Eosinophils % (Auto) 2.2 % (0.0-7.0); Granulocytes % (Auto) 70.2 % (38.0-78.0); Hemoglobin 11.6 g/dL (13.7-17.5); Lymphocytes # (Auto) 2.56 K/mcL (1.50-4.80); Lymphocytes % (Auto) 18.6 % (15.5-49.0); Mean Cell Volume 94.3 fL (80.0-100.0); Mean Corpuscular HGB Conc 33.1 g/dL (31.0-36.0); Mean Platelet Volume 8.3 fL (7.4-10.4); Monocytes # (Auto) 1.18 K/mcL (0.10-0.90); Monocytes % (Auto) 8.6 % (1.0-12.0); Platelet Count 541 K/mcL (140-440); RBC 3.71 M/mcL (4.63-6.08); Red Cell Distribution Width 14.1 % (11.5-14.5); WBC 13.8 K/mcL (4.50-11.00)
[2020-04-25] MEDS: DOCUSATE SODIUM 100 MG CAPSULE PO SCH ×2 (09:25→21:43)
[2020-04-25] MEDS: DAPTOmycin 500 MG VIAL IV SCH (09:31)
[2020-04-25] MEDS: FAMOTIDINE 20 MG TABLET PO SCH ×2 (09:31→22:54)
[2020-04-25] MEDS: ENOXAPARIN 40 MG/0.4 ML SYRINGE SQ SCH (09:31)
[2020-04-25] MEDS: GENTAMICIN SULFATE 40 MG, CLINDAMYCIN 300 MG, BACITRACIN 25,000 UNIT in SODIUM CHLORIDE... IRR SCH ×2 (09:31→22:21)
[2020-04-25] MEDS: ZINC OXIDE TOPICAL SCH ×3 (10:28→21:43)
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
--- NOTE | 2020-04-25 13:52 | Surgical Pathology Report ---
HISTOLOGY SPECIMEN MICROSCOPIC DIAGNOSIS SPECIMEN A - BONE, RIGHT FOOT FIRST METATARSAL, BIOPSY: -- ACUTE OSTEOMYELITIS. SPECIMEN B - BONE, RIGHT FOOT FIRST METATARSAL, BIOPSY: -- ACUTE OSTEOMYELITIS. (RLF:sln) PROCEDURAL IMPRESSION Right foot wound. GROSS DESCRIPTION Specimen A: Received in formalin labeled with the patient information, is a 1.1 x 0.6 x 0.5 cm pink to white-thomas soft tissue fragment and firm yellow-thomas possible bone. The specimen is sectioned and entirely submitted in one cassette following decalcification with decal stat. Specimen B: Received fresh labeled with the patient information, is a 0.9 x 0.6 x 0.5 cm portion of firm, rough surfaced pink-thomas bone and attached pink-thomas soft tissue. The specimen is trisected and entirely submitted in one cassette following decalcification with decal stat. (STS:sln) Electronically Signed by: Anastasia Soler M.D.
--- NOTE | 2020-04-25 14:02 | Internal Med Progress Note ---
SUBJECTIVE Subjective Patient information: Note initiated : 04/25/20 at 2:00 pm Service Date, if different from initiated Date: [] Patient: Bob Dupont 60 y/o M admitted on 04/18/20 for right foot redness/swelling. Chief Complaint: [feels better than before. denied any fever, chills, n/v, diarrhea. Endorses right foot pain. ] Constitutional Vitals: Vital Signs Temp Pulse Resp BP Pulse Ox 36.2 C 84 12 102/68 98 04/25/20 12:00 04/25/20 12:00 04/25/20 12:00 04/25/20 12:00 04/25/20 12:00 Period Temp Pulse Resp BP Sys/Hassan Pulse Ox Last 24 Hr 36.2 C-36.9 C 64-84 12-18 102-128/67-75 94-98 Intake and Output 04/25/20 04/25/20 04/25/20 05:59 13:59 21:59 Intake Total 440 960 Output Total 1550 720 Balance -1110 240 Weight 90.945 kg Patient Weight 04/26/20 05:59 Weight 90.945 kg Intake & Output: Intake & Output 04/25/20 04/25/20 04/25/20 05:59 13:59 21:59 Intake Total 440 960 Output Total 1550 720 Balance -1110 240 Weight 90.945 kg Intake: Oral 440 960 Output: Void Amount 1550 720 Other: Meal Lunch Percent of Meal Consumed 100% Feeding Ability Independent Urine Appearance Clear Clear Urine Color Pale Bright Yellow Urine Odor Normal Additional findings Additional findings: ao x 3, in nad no thrush chest cta with decreased bs at bases s1 s2 normal, no m/r/g right foot: wrapped in dressing. seen in pictures: the right foot has 2 ulcers, one over the right great toe and other over the dorsal midfoot. The external hallucis tendon is exposed and there is some dark discoloration around the ulcer. The dorsal midfoot ulcer has some darkening as well. Sero-sanguineous drainage seen. OBJ DATA Labs CBC & Chem 7: 04/26/20 08:08 04/26/20 08:08 Labs: Abnormal Lab Results 04/25/20 04/24/20 04/24/20 05:18 04:48 04:48 WBC 13.8 H 17.9 H RBC 3.71 L 3.79 L Hgb 11.6 L 11.8 L Hct 35.0 L 36.2 L Plt Count 541 H 534 H Gran % Lymph % (Auto) 15.4 L Gran # 9.71 H 13.77 H Nobles # (Auto) 1.18 H 1.11 H Calcium 8.5 L 04/23/20 04:50 WBC 23.8 H RBC 4.09 L Hgb 12.9 L Hct 37.4 L Plt Count 537 H Gran % 85.4 H Lymph % (Auto) 10.7 L Gran # 20.27 H Nobles # (Auto) Calcium Meds: Medications Acetaminophen (Tylenol) 650 mg PO Q6HP PRN; Protocol PRN Reason: Per Pain Protocol/Fever > 101 Hydrocodone Bitart/Acetaminophen ([place] 5/325mg) 1 - 2 tab PO Q4HP PRN; Protocol PRN Reason: Per Pain Protocol Last Admin: 04/25/20 10:27 Dose: 1 tab Documented by: Daptomycin (Cubicin) 700 mg IV Q24H [facility] Last Admin: 04/25/20 09:31 Dose: 700 mg Documented by: Diphenhydramine HCl (Benadryl) 25 mg PO Q6HP PRN PRN Reason: Allergic Symptoms Last Admin: 04/22/20 22:25 Dose: 25 mg Documented by: Docusate Sodium (Colace) 100 mg PO BID [facility] Last Admin: 04/25/20 09:25 Dose: Not Given Documented by: Enoxaparin Sodium (Lovenox) 40 mg SQ DAILY [facility] Last Admin: 04/25/20 09:31 Dose: 40 mg Documented by: Famotidine (Pepcid) 20 mg PO BID [facility] Last Admin: 04/25/20 09:31 Dose: 20 mg Documented by: Hydromorphone HCl (Dilaudid) 0.5 mg IV Q2HP PRN; Protocol PRN Reason: Per Pain Protocol Last Admin: 04/24/20 14:57 Dose: 0.5 mg Documented by: Acetaminophen (Ofirmev) 650 mg in 65 mls @ 130 mls/hr IV Q6HP PRN; Protocol PRN Reason: PAIN/FEVER > 101 Last Admin: 04/18/20 23:43 Dose: 130 mls/hr Documented by: Gentamicin Sulfate 40 mg/Clindamycin Phosphate 300 mg/Bacitracin 25,000 unit/ Sodium Chloride 503 mls @ 0 mls/hr IRR Q12H [facility] Last Admin: 04/25/20 09:31 Dose: 40 mls/hr Documented by: Melatonin (Melatonin 3mg Tablet) 3 mg PO QHS [facility] Last Admin: 04/24/20 23:10 Dose: 3 mg Documented by: Mupirocin (Bactroban Oint 2%) 1 dose TOPICAL BID [facility] Stop: 04/30/20 23:59 Zinc Oxide Ointment 1 dose TOPICAL TID [facility] Last Admin: 04/25/20 10:28 Dose: Not Given Documented by: Ondansetron HCl (Zofran) 4 mg IV Q4-6HP PRN PRN Reason: Nausea And Vomiting Senna (Senokot) 2 tab PO HS [facility] Last Admin: 04/24/20 23:12 Dose: Not Given Documented by: Sodium Chloride (Saline Flush) 10 ml IV Q8 [facility] Last Admin: 04/25/20 13:16 Dose: 10 ml Documented by: Trazodone HCl (Desyrel) 25 mg PO HSP PRN PRN Reason: Insomnia Last Admin: 04/21/20 21:19 Dose: 25 mg Documented by: A/P Narrative A/P Narrative: A: 1. Complicated MRSA bacteremia: pt getting better - 2/2 sets from 04/18 and 1/2 sets from 04/20 are +ve. Blood Cx from 04/22 NGTD - source is right foot purulent cellulitis with osteo - risk factors of MRSA nasal colonization and subseq body colonization, trauma - associated with sepsis: resolved. NO septic shock - TTE neg for IE 2. Rt foot purulent cellulitis with osteomyelitis: s/p surgical debridement on 04/19 and 04/24 - wound Cx growing MRSA - MRI done 04/22 further confirms osteomyelitis 3. Morbilliform rash: completely resolved - could be sec to Ceftriaxone or topical CHG bathing. Both stopped - no mucosal inv - serum Eosinophil count normal Recommendations: - repeat blood Cx every other day until neg for 48 hrs - continue IV Daptomycin 8 mg/kg (=700 mg) q24. Baseline CK normal. will have weekly CK monitoring - ДМИТРИЙ as OP (probably at [facility]) - will plan for PICC placement once blood Cx neg for 48 hrs - anticipate 6 weeks of IV antibiotics counting from 1st day of negative blood CX. will have pt f/u with Dr Amezquita ([facility] ID physician) after discharge - wound care per Dr Knight/Dr Bryan - resume CHG and mupirocin decolonization, for a 5 day course Andrew Patel MD Infectious Diseases Time Spent With Patient Time: Total time spent is greater than 50% in coordination of care (as documen susi) at patient's floor/unit and/or counseling patient: QUALITY VTE Deep Vein Thrombosis/Pulmonary Embolism Present on Admission: No
--- NOTE | 2020-04-25 17:54 | General Surgery Progress Note ---
SUBJECTIVE Subjective Patient information: Note initiated : 04/25/20 at 5:45 pm Service Date, if different from initiated Date: [] Patient: Bob Dupont 60 y/o M admitted on 04/18/20 for right foot redness/swelling. Chief Complaint: [] Additional PMFSH (Level 3 Only): Feeling better. Ongoing progress reviewed, Path report checked. HBOT indications were reviewed. Wound examined. Constitutional Vitals: Vital Signs Temp Pulse Resp BP Pulse Ox 97.5 F 88 12 129/79 98 04/25/20 16:00 04/25/20 16:00 04/25/20 16:00 04/25/20 16:00 04/25/20 16:00 Period Temp Pulse Resp BP Sys/Hassan Pulse Ox Last 24 Hr 97.2 F-98.4 F 64-88 12-14 102-129/68-79 94-98 Intake and Output 04/25/20 04/25/20 04/25/20 05:59 13:59 21:59 Intake Total 440 960 400 Output Total 1550 720 Balance -1110 240 400 Weight 200 lb 8 oz Patient Weight 04/26/20 05:59 Weight 200 lb 8 oz Intake & Output: Intake & Output 04/25/20 04/25/20 04/25/20 05:59 13:59 21:59 Intake Total 440 960 400 Output Total 1550 720 Balance -1110 240 400 Weight 200 lb 8 oz Intake: Oral 440 960 400 Output: Void Amount 1550 720 Other: Meal Lunch Percent of Meal Consumed 100% Feeding Ability Independent Urine Appearance Clear Clear Urine Color Pale Bright Yellow Urine Odor Normal Exam: AVSS. No changes MARTÍNEZ. Open surgical wound with exposed soft tissue over the bone surface. This patient sustained a crush injury with subsequent compartment syndrome and sequelae. Underwent surgical decompression and debridement. There is residual superficial tissue in wound bed. Demarcating well. Patient will benefit from ADJUVANT HBOT at this time for toe and limb salvage. A/P Narrative A/P Narrative: Assessment: Crush injury of RIGHT foot great toe. Compartment syndrome. S/P Decompression fasciotomy and surgical debridement. Steady improvement in SEPSIS syndrome. Plan: Ongoing local wound care to continue. Will treat with ADJUVANT HBOT for compromised wound bed. Time Spent With Patient Time: Total time spent is greater than 50% in coordination of care (as documented) at patient's floor/unit and/or counseling patient: Total time spent with greater than 50% in coordination of care (as documented) at patient's floor/unit and/or counseling patient:: 25 - 35 minutes
[2020-04-25] MEDS: SENNOSIDES 1 TABLET PO SCH (21:42)
[2020-04-25] MEDS: MUPIROCIN OINT 2% 22GM TOPICAL SCH (22:21)
[2020-04-25] MEDS: MELATONIN 3 MG TABLET PO SCH (22:54)
[2020-04-26] MEDS: HYDROcodone/APAP 5/325MG TABLET PO PRN ×3 (05:29→16:20)
[2020-04-26] MEDS: 0.9 % SODIUM CHLORIDE 10 ML SYRINGE IV SCH ×2 (05:30→12:28)
[2020-04-26 08:50] LABS: Basophils # (Auto) 0.02 K/mcL (0.00-0.30); Basophils % (Auto) 0.2 % (0.0-2.0); Eosinophils % (Auto) 1.7 % (0.0-7.0); Granulocytes % (Auto) 71.3 % (38.0-78.0); Hematocrit 35.8 % (40.1-51.0); Lymphocytes # (Auto) 2.32 K/mcL (1.50-4.80); Lymphocytes % (Auto) 19.7 % (15.5-49.0); Mean Corpuscular HGB Conc 33.5 g/dL (31.0-36.0); Mean Platelet Volume 8.1 fL (7.4-10.4); Monocytes # (Auto) 0.83 K/mcL (0.10-0.90); Monocytes % (Auto) 7.1 % (1.0-12.0); Platelet Count 587 K/mcL (140-440); RBC 3.85 M/mcL (4.63-6.08); Red Cell Distribution Width 13.7 % (11.5-14.5); WBC 11.8 K/mcL (4.50-11.00)
[2020-04-26 09:00] LABS: ALT/SGPT 77 U/l (0-40); AST/SGOT 27 U/l (0-37); Alkaline Phosphatase 128 U/L (39-117); Bilirubin,Direct < 0.2 mg/dL (0.0-0.3); Bilirubin,Total 0.3 mg/dL (0.0-1.0); Blood Urea Nitrogen 15 mg/dl (8-23); Calcium 8.7 mg/dl (8.6-10.4); Carbon Dioxide 25 mmol/L (22-30); Chloride 98 mmol/L (96-108); Glomerular Filtration Rate 102; Glucose 103 mg/dL (70-105); Lactate Dehydrogenase 109 U/L (94-250); Phosphorous 3.1 mg/dL (2.7-4.5); Triglycerides 235 mg/dl (<150); Uric Acid 5.1 mg/dL (2.5-8.0)
[2020-04-26] MEDS ORDERED: 0.9 % SODIUM CHLORIDE 10 ML SYRINGE IV SCH (09:00)
[2020-04-26] MEDS ORDERED: 0.9 % SODIUM CHLORIDE 10 ML SYRINGE IV PRN (09:00)
[2020-04-26] MEDS: ENOXAPARIN 40 MG/0.4 ML SYRINGE SQ SCH (09:01)
[2020-04-26] MEDS: MUPIROCIN OINT 2% 22GM TOPICAL SCH (09:01)
[2020-04-26] MEDS: DOCUSATE SODIUM 100 MG CAPSULE PO SCH (09:02)
[2020-04-26] MEDS: FAMOTIDINE 20 MG TABLET PO SCH (09:02)
[2020-04-26 09:06] LABS: Albumin/Globulin Ratio 0.9 (1.0-2.3); Globulin 3.2 gm/dL (2.2-3.7)
[2020-04-26] MEDS: DAPTOmycin 500 MG VIAL IV SCH (09:55)
[2020-04-26] MEDS: ZINC OXIDE TOPICAL SCH ×2 (11:18→17:36)
--- NOTE | 2020-04-26 12:11 | XRay Report ---
CLINICAL INFORMATION: PICC PLACEMENT COMPARISON: 04/23/2020 FINDINGS: Left PICC line tip overlies the SVC azygos junction. Heart size, mediastinum and pulmonary vessels are normal. The lungs are clear. No effusions. IMPRESSION: Acute disease. Left PICC line overlies the SVC/azygos junction. Interpreted and Authenticated by: Lorne Sam 04/26/20
[2020-04-26] MEDS: GENTAMICIN SULFATE 40 MG, CLINDAMYCIN 300 MG, BACITRACIN 25,000 UNIT in SODIUM CHLORIDE... IRR SCH (13:12)
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
== END 2020-04-26 20:15 | disposition home or self-care (01) | DRG 854 ==
LOC: MEDSUR 14:02 → ED 14:02 → OBSVTOIN 17:58
PROVIDERS: ADMIT Internal Medicine; ATTEND Internal Medicine

== ENCOUNTER 2020-05-09 03:21 | Inpatient (IN) ==
[2020-05-09] MEDS ORDERED: IOPAMIDOL 100 ML BOTTLE IV ONE (03:22)
[2020-05-09 04:11] LABS: POC Creatinine 0.8 mg/dl (0.7-1.2)
--- NOTE | 2020-05-09 04:33 | Emergency Department Note ---
HPI General Chief complaint: Shortness of Breath/Dyspnea Stated complaint: Shortness of Breath Time Seen by Provider: 05/09/20 03:56 Source: patient and family Mode of arrival: wheelchair Limitations: no limitations History of Present Illness HPI Narrative: Narrative: 60-year old patient presenting with chief complaint of dyspnea. Patient's dyspnea arose over the course of several days. Patient with associated symptoms of cough, fever but not sputum, gradual progression, orthopnea. Past medical history is significant for osteomyelitis and MRSA currently on daptomycin. This patient's dyspnea was exacerbated by exertion within 50-100 feet of walking or several minutes of exercise. Also was not associated with a nocturnal component. Symptoms are continuous. Additional associated symptoms such as cough, sputum production, nasal congestion, chest pain, peripheral edema, joint swelling, muscle weakness were also inquired. Patient primarily with dyspnea sensation of working very hard to breathe. Patient family concerned that patient may have pulmonary embolism to account for his current symptoms. Patient has had some immobility as well as current infection. Related Data Home Medications Medication Instructions Recorded Confirmed atorvastatin 10 mg PO QHS 04/18/20 05/08/20 sildenafil (pulm.hypertension) 10 - 20 mg PO DAILYP PRN 04/20/20 05/08/20 Previous Rx's Medication Instructions Recorded daptomycin [Cubicin RF] 700 mg IV Q24H #42 ea 04/26/20 hydrocodone-acetaminophen 1 - 2 tab PO Q4HP PRN #20 tab 04/26/20 Allergies Allergy/AdvReac Type Severity Reaction Status Date / Time morphine AdvReac Mild Hallucinati Verified 05/09/20 03:29 ng Review of Systems ROS ROS Narrative: Narrative: All systems ED: reviewed and negative except as stated. PFSH Narrative Patient History Narrative: Narrative: Medical/Surgical/Family History All Active Problems (Updated 05/09/20 @ 05:47 by Dk Briggs MD) Pneumonia (Acute) Hypoxia (Acute) Fever (Acute) Osteomyelitis of foot (Acute) Status post PICC central line placement (Acute) Strain of great toe (Acute) Contusion of foot, right (Acute) Cellulitis of right foot (Acute) Elevated WBC count (Acute) Environmental allergies (Chronic) Rotator cuff impingement syndrome (Chronic) FH: CAD (coronary artery disease) (Chronic) Osteoarthritis (Chronic) Microhematuria (Chronic) Reactive airway disease (Chronic) Onychomycosis (Chronic) Insomnia (Chronic) Essential hypertension (Chronic) Hyperlipidemia (Chronic) Hearing loss (Chronic) Erectile dysfunction (Chronic) Dermatitis (Chronic) Osteoarthritis of hip (Chronic 01/04/15) Colon adenoma (Chronic 12/15/14) Asthma (Chronic) Medical History (Updated 05/09/20 @ 05:47 by Dk Briggs MD) Abdominal pain (Resolved) Asthma (Chronic) Bilateral otitis media (Inactive) mild Bronchitis (Resolved 01/04/15) Calculus of kidney (Resolved) Colon adenoma (Chronic 12/15/14) tubular adenmoa. 06/16/17. 5-7 year follow-up per Dr. Juarez Dermatitis (Chronic) forehead, likely rosacea Erectile dysfunction (Chronic) Well-controlled on Viagra 10 mg as needed. Essential hypertension (Chronic) FH: CAD (coronary artery disease) (Chronic) Father Hearing loss (Chronic) Hyperlipidemia (Chronic) Well-controlled on Lipitor 10 mg daily. No myalgias. Insomnia (Chronic) Microhematuria (Chronic) H/O Obstructive uropathy (Resolved 06/13/13) Onychomycosis (Chronic) Osteoarthritis (Chronic) Osteoarthritis of hip (Chronic 01/04/15) Pyelonephritis (Resolved) Reactive airway disease (Chronic) Tinea cruris (Resolved) Trochanteric bursitis (Resolved) Ureteral calculus (Resolved) passed Surgical History (Updated 05/07/20 @ 00:06 by Cam Frey DO) H/O colonoscopy (Resolved 06/16/17) 05/18/12 Colon ascending; tubular adenoma. Hemorrhoids. 06/16/17 TA, 5-[address] Juarez. History of ureter stent (Resolved 06/12/13) Hx of appendectomy (Resolved) S/P tonsillectomy (Resolved) Family History Father Coronary artery disease Social History Smoking Status: Never smoker Alcohol Intake Frequency: does not drink Substance Use: does not use Exam Narrative Narrative: Vital signs and evaluated for evidence of hypoxia or hemodynamic compromise specifically tachycardia/hypotension-patient does have fever as well as tachycardia and tachypnea General: Alert, interactive, appropriate Head: Atraumatic, normocephalic Eyes: Extraocular movements intact, sclera anicteric, no conjunctival injection Ears: Pinnae normal, no discharge Mouth: Oral mucosa moist, no acute swelling or evidence of infection Nares: No nasal discharge, patent bilaterally Neck: Trachea midline, full range of motion Chest: Symmetrical chest wall rise, breathing normally; nonlabored respirations Cardiovascular: Patient with excellent perfusion to the extremities; with tachycardia Extremities: Full range of motion joints, no obvious deformities Neuro: Alert, oriented x3, cranial nerves II through XII grossly intact, patient without lateralizing findings such as weakness, or abnormal reflexes Psychiatric: Normal affect, normal mood General Limitations: no limitations Course Vital Signs Vital signs: Vital Signs Temperature 101.6 F H 05/09/20 03:22 Pulse Rate 103 H 05/09/20 03:22 Respiratory Rate 18 05/09/20 03:22 Blood Pressure 128/64 05/09/20 03:22 Pulse Oximetry (%) 93 05/09/20 03:22 Temperature 101.6 F H 05/09/20 03:22 Pulse Rate 102 H 05/09/20 05:31 Respiratory Rate 23 H 05/09/20 05:31 Blood Pressure 132/75 05/09/20 05:31 Pulse Oximetry (%) 90 05/09/20 05:31 MDM MDM Narrative Medical decision making narrative: Acute dyspnea differential diagnosis considered in this case included MO, heart failure, cardiac tamponade, bronchospasm, pulmonary embolism, pneumothorax, pneumonia or infection, and upper airway obstruction. After review of chart and patient history/physical exam/labs as well as imaging the differential diagnosis addressed was acute hypoxic respiratory failure, COPD exacerbation, pneumonia, sepsis, pulmonary edema, pneumothorax, metabolic acidosis, acute respiratory distress syndrome, panic attack, airflow obstruction, restrictive lung disease, aspiration, congestive heart failure, hypercapnia, influenza, bronchitis, upper respiratory infection, pulmonary embolism, cardiac tamponade, valvular obstruction, MO/ACS, and arrhythmia in my medical opinion this patient has dyspnea that reasonably does require admission to the hospital. Patient with bilateral pneumonia on CT scan will cover with antibiotics however it suggests of viral infection at this point time. Reason for admission is patient is hypoxic and febrile. Patient does have intercurrent infection osteomyelitis for which he is being treated with wound care and daptomycin this could also be contributing to his fever. Blood cultures obtained CBC CMP repeat COVID as well as ABG and lactic acid. Discussed case with the hospitalist and consensus medical opinion is to admit the patient for ongoing management. Lab Data Labs: Lab Results 05/09/20 Range/Units 04:05 POC Creatinine 0.8 (0.7-1.2) mg/dl Discharge Plan Patient/Caregiver Discharge Instructions Pt seen by [employer]/PA only: No Clinical Impression: Hypoxia Pneumonia Qualifiers: Pneumonia type: due to unspecified organism Laterality: bilateral Patient Disposition: Xfer As Inpt ([facility]) Condition: Serious Follow up with: Lorne Back DO [Primary Care Provider] - Prescriptions: No Action atorvastatin 10 mg Tablet 10 mg PO QHS RF: 0 sildenafil (pulm.hypertension) 20 mg tablet 10 - 20 mg PO DAILYP PRN (Reason: Erectile Dysfunction) RF: 0 daptomycin [Cubicin RF] 500 mg Recon Soln 700 mg IV Q24H Qty: 42 RF: 0 hydrocodone-acetaminophen 5-325 mg Tablet 1 - 2 tab PO Q4HP PRN (Reason: Per Pain Protocol) Qty: 20 RF: 0
[2020-05-09] MEDS ORDERED: 0.9 % SODIUM CHLORIDE 1,000 ML IV ONE (05:29)
[2020-05-09] MEDS ORDERED: cefTRIAXone 2 GM VIAL IV ONE (05:29)
[2020-05-09 06:19] LABS: ABG Methemoglobin 0.3 % (0.4-1.5); Total Hemoglobin 11.6 gm/dL (13.5-16.5); VBG Base Excess -0.5 (-2.0-2.0); VBG PCO2 29.4 mmHg (41.0-51.0); VBG PH 7.49 U (7.32-7.42); VBG PO2 74 mmHg (25-40); VBG Total CO2 22.9 mmol/L (25.0-29.0)
[2020-05-09 06:23] LABS: Basophils # (Auto) 0.04 K/mcL (0.00-0.30); Basophils % (Auto) 0.2 % (0.0-2.0); Eosinophils # (Auto) 1.93 K/mcL (0.00-0.70); Eosinophils % (Auto) 10.6 % (0.0-7.0); Granulocytes % (Auto) 68.9 % (38.0-78.0); Hematocrit 35.1 % (40.1-51.0); Hemoglobin 11.7 g/dL (13.7-17.5); Lymphocytes # (Auto) 1.79 K/mcL (1.50-4.80); Lymphocytes % (Auto) 9.8 % (15.5-49.0); Mean Cell Volume 93.1 fL (80.0-100.0); Mean Corpuscular HGB Conc 33.3 g/dL (31.0-36.0); Mean Platelet Volume 8.8 fL (7.4-10.4); Monocytes # (Auto) 1.91 K/mcL (0.10-0.90); Monocytes % (Auto) 10.5 % (1.0-12.0); Platelet Count 408 K/mcL (140-440); RBC 3.77 M/mcL (4.63-6.08); Red Cell Distribution Width 13.1 % (11.5-14.5); WBC 18.3 K/mcL (4.50-11.00)
[2020-05-09 06:41] LABS: ALT/SGPT 41 U/l (0-40); AST/SGOT 24 U/l (0-37); Alkaline Phosphatase 84 U/L (39-117); Bilirubin,Total 0.7 mg/dL (0.0-1.0); Blood Urea Nitrogen 19 mg/dl (8-23); Carbon Dioxide 23 mmol/L (22-30); Globulin 3.1 gm/dL (2.2-3.7); Glomerular Filtration Rate 96; Glucose 111 mg/dL (70-105)
[2020-05-09 06:43] LABS: Chloride 94 mmol/L (96-108)
[2020-05-09] MEDS ORDERED: ACETAMINOPHEN 325 MG TABLET PO ONE (07:25)
--- NOTE | 2020-05-09 07:43 | Internal Med History&Physical ---
HPI History of Present Illness Patient information: Note initiated : 05/09/20 at 7:42 am Service Date, if different from initiated Date: [] Patient: Bob Dupont a 60 y/o M admitted on for SOB . Chief Complaint: Mr. Dupont is a 60-year-old was discharged on 04/26 following osteomyelitis/right foot abscess and cellulitis and MRSA bacteremia. Patient has been receiving IV daptomycin as an outpatient and following up with infectious specialist Dr. mahoney. Over the last 4 days patient has noted increasing fever weakness for which he was evaluated at the ER on the and subsequently with his primary care provider office on the . He has been undergoing hyperbaric oxygen treatment along with wound VAC and wound care. His blood cultures from and have been negative so far. Symptoms were associated with increasing shortness of breath over the last 48 hours to the point he could barely function and at very difficult day due to exertional dyspnea limiting his activities. Initial work-up was consistent with bilateral chest infiltrates/pneumonia patient was started on antibiotic coverage. Hospital service was consulted. At the time of evaluation patient is alert and oriented. He is able to talk in near full sentences. He appears short of breath. He denies lightheadedness dizziness chest pain. He expressed concern about missing his hyperbarics however endorses that his wound has been healing satisfactorily on a wound VAC. He denies any pain or swelling around PICC line catheter site left arm. Right foot woundwound VAC Review of systems 10 point review system was performed and is negative except for ones discussed above PFSH PFSH All Active Problems (Updated 05/09/20 @ 05:47 by Dk Briggs MD) Pneumonia (Acute) Hypoxia (Acute) Fever (Acute) Osteomyelitis of foot (Acute) Status post PICC central line placement (Acute) Strain of great toe (Acute) Contusion of foot, right (Acute) Cellulitis of right foot (Acute) Elevated WBC count (Acute) Environmental allergies (Chronic) Rotator cuff impingement syndrome (Chronic) FH: CAD (coronary artery disease) (Chronic) Osteoarthritis (Chronic) Microhematuria (Chronic) Reactive airway disease (Chronic) Onychomycosis (Chronic) Insomnia (Chronic) Essential hypertension (Chronic) Hyperlipidemia (Chronic) Hearing loss (Chronic) Erectile dysfunction (Chronic) Dermatitis (Chronic) Osteoarthritis of hip (Chronic 01/04/15) Colon adenoma (Chronic 12/15/14) Asthma (Chronic) Medical History (Updated 05/09/20 @ 05:47 by Dk Briggs MD) Abdominal pain (Resolved) Asthma (Chronic) Bilateral otitis media (Inactive) mild Bronchitis (Resolved 01/04/15) Calculus of kidney (Resolved) Colon adenoma (Chronic 12/15/14) tubular adenmoa. 06/16/17. 5-7 year follow-up per Dr. Juarez Dermatitis (Chronic) forehead, likely rosacea Erectile dysfunction (Chronic) Well-controlled on Viagra 10 mg as needed. Essential hypertension (Chronic) FH: CAD (coronary artery disease) (Chronic) Father Hearing loss (Chronic) Hyperlipidemia (Chronic) Well-controlled on Lipitor 10 mg daily. No myalgias. Insomnia (Chronic) Microhematuria (Chronic) H/O Obstructive uropathy (Resolved 06/13/13) Onychomycosis (Chronic) Osteoarthritis (Chronic) Osteoarthritis of hip (Chronic 01/04/15) Pyelonephritis (Resolved) Reactive airway disease (Chronic) Tinea cruris (Resolved) Trochanteric bursitis (Resolved) Ureteral calculus (Resolved) passed Surgical History (Updated 05/07/20 @ 00:06 by Cam Frey DO) H/O colonoscopy (Resolved 06/16/17) 05/18/12 Colon ascending; tubular adenoma. Hemorrhoids. 06/16/17 TA, 5-[address] Juarez. 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 well-balanced diet: daily or most days during the past year weight has: remained stable smoking status: Never smoker alcohol intake frequency: does not drink substance use type: does not use MEDS/ALLERGIES Home Medications and Allergies Home Medications Medication Instructions Recorded Confirmed Type atorvastatin 10 mg PO QHS 04/18/20 05/10/20 History sildenafil (pulm.hypertension) 10 mg PO DAILYP PRN 04/20/20 05/10/20 History daptomycin [Cubicin RF] 700 mg IV Q24H #42 ea 04/26/20 05/10/20 Rx hydrocodone-acetaminophen 1 - 2 tab PO Q4HP PRN #20 tab 04/26/20 05/10/20 Rx Allergies Allergy/AdvReac Type Severity Reaction Status Date / Time morphine AdvReac Mild Hallucinati Verified 05/09/20 03:29 ng EXAM Constitutional Vitals: Temp Pulse Resp BP Pulse Ox 101.4 F H 97 H 18 128/76 96 05/09/20 07:32 05/09/20 07:01 05/09/20 07:01 05/09/20 07:01 05/09/20 07:01 Head normocephalic Oral cavity moist No ear nose discharge Eye movement symmetrical Neck supple no lymphadenopathy S1-S2 regular Nonlabored breathing Nondistended nontender abdomen PICC line left arm Right lower extremity wound VAC, no swelling, cyanosis clubbing Skin no suspicious lesion Psych anxious but alert cooperative Neuro normal higher function DATA Data Completed and Pending Labs: Labs from last 24 hours 05/09/20 05/09/20 05/09/20 05:45 05:30 05:30 WBC RBC Hgb Hct MCV MCH MCHC RDW Plt Count MPV Gran % Lymph % (Auto) [place] % (Auto) Eos % (Auto) Baso % (Auto) Gran # Lymph # (Auto) [place] # (Auto) Eos # (Auto) Baso # (Auto) ABG Methemoglobin 0.3 L VBG pH 7.49 H VBG pCO2 29.4 L VBG pO2 74 H VBG HCO3 22.0 L VBG Total CO2 22.9 L VBG O2 Saturation 92.0 H VBG Base Excess -0.5 VBG Lactic Acid 1.2 Carboxyhemoglobin 4.1 H Total Hemoglobin 11.6 L O2 Delivery Level Not Reportable Sodium Potassium Chloride Carbon Dioxide Anion Gap BUN Creatinine POC Creatinine GFR Calculation Glucose Calcium Total Bilirubin AST ALT Alkaline Phosphatase Total Protein Albumin Globulin Albumin/Globulin Ratio SARS-CoV-2 (PCR) Covid-19 negative 05/09/20 05/09/20 05/09/20 05:00 05:00 04:05 WBC 18.3 H RBC 3.77 L Hgb 11.7 L Hct 35.1 L MCV 93.1 MCH 31.0 MCHC 33.3 RDW 13.1 Plt Count 408 MPV 8.8 Gran % 68.9 Lymph % (Auto) 9.8 L [place] % (Auto) 10.5 Eos % (Auto) 10.6 H Baso % (Auto) 0.2 Gran # 12.58 H Lymph # (Auto) 1.79 [place] # (Auto) 1.91 H Eos # (Auto) 1.93 H Baso # (Auto) 0.04 ABG Methemoglobin VBG pH VBG pCO2 VBG pO2 VBG HCO3 VBG Total CO2 VBG O2 Saturation VBG Base Excess VBG Lactic Acid Carboxyhemoglobin Total Hemoglobin O2 Delivery Level Sodium 131 L Potassium 4.6 Chloride 94 L Carbon Dioxide 23 Anion Gap 14.0 BUN 19 Creatinine 0.8 POC Creatinine 0.8 GFR Calculation 96 Glucose 111 H Calcium 9.0 Total Bilirubin 0.7 AST 24 ALT 41 H Alkaline Phosphatase 84 Total Protein 6.1 Albumin 3.0 L Globulin 3.1 Albumin/Globulin Ratio 1.0 SARS-CoV-2 (PCR) A/P Narrative A/P Narrative: * Severe sepsis secondary to bilateral pneumonia white count over 18,000. * Bilateral pneumonia possibly nosocomial acquired. Start cefepime/vancomycin, MRSA nasal swab and sputum cultures * Recent MRSA bacteremia on OP daptomycin, switch to vanco iP * Hypoxic aspiratory failure rule out COVID. Nosocomial pneumonia. Start cefepime * Lower extremity cellulitis, wound care consult * Full code * Flexes heparin Plan * Inpatient admission * Sepsis management per guidelines * COVID-19 testing/precautions * Wound care consult * Cefepime/vancomycin Time Spent With Patient Time: Total time spent is greater than 50% in coordination of care (as documented) at patient's floor/unit and/or counseling patient:
--- NOTE | 2020-05-09 08:33 | Cat Scan Report ---
History: Hypoxia, tachycardia TECHNIQUE: The chest was imaged following injection of intravenous nonionic contrast. Sagittal, coronal and axial MIPS images were created. The radiation exposure was limited using dose reduction technology. FINDINGS: The pulmonary arteries are normal, without evidence of emboli. There is a patchy distribution widespread alveolar infiltrates throughout both lungs. The greatest involvement is in the lower lobes but there is involvement in all lobes. No pleural effusion is present. There are few lymph nodes in the mediastinum and elvin. Largest is in the subcarinal space one 6.6 x 2.2 cm. There is normal in size and contour. Aorta is normal caliber. There are couple calcified plaques along the wall of the aortic arch. IMPRESSION: Bilateral pulmonary infiltrates. This is probably pneumonia Interpreted and Authenticated by: Stephen Harding 05/09/20
[2020-05-09] MEDS ORDERED: ACETAMINOPHEN 325 MG TABLET PO PRN (09:50)
[2020-05-09] MEDS ORDERED: ACETAMINOPHEN 650 MG/65 ML BOTTLE IV PRN (09:50)
[2020-05-09] MEDS ORDERED: CEFEPIME 2 GM in DEXTROSE 5% IN WATER 50 ML IV SCH (09:50)
[2020-05-09] MEDS ORDERED: BISACODYL 10 MG SUPP.RECT PR PRN (09:50)
[2020-05-09] MEDS ORDERED: MAGNESIUM SULFATE 2 GM/50 ML BAG IV PRN (09:50)
[2020-05-09] MEDS ORDERED: POTASSIUM CHLORIDE 20 MEQ PACKET PO PRN (09:50)
[2020-05-09] MEDS ORDERED: ONDANSETRON 4 MG ODT TABLET SL PRN (09:50)
[2020-05-09] MEDS ORDERED: ONDANSETRON 4 MG/2 ML VIAL IV PRN (09:50)
[2020-05-09] MEDS ORDERED: guaiFENesin/CODEINE 10 ML UDC PO PRN (09:50)
[2020-05-09] MEDS ORDERED: MELATONIN 3 MG TABLET PO PRN (09:50)
[2020-05-09] MEDS ORDERED: POLYETHYLENE GLYCOL 3350 17 GM PACKET PO PRN (09:50)
[2020-05-09] MEDS ORDERED: VANCOMYCIN PER PHARMACY IV SCH (10:31)
[2020-05-09] MEDS: 0.9 % SODIUM CHLORIDE 1,000 ML IV SCH (11:34)
[2020-05-09] MEDS: VANCOMYCIN 1,500 MG in 0.9 % SODIUM CHLORIDE 500 ML IV SCH ×2 (11:34→22:00)
[2020-05-09] MEDS: HEPARIN 5,000 UNIT/ML VIAL SQ SCH ×2 (11:35→22:00)
[2020-05-09] MEDS: DOCUSATE SODIUM 100 MG CAPSULE PO SCH ×2 (11:35→22:01)
[2020-05-09] MEDS: CEFEPIME 2 GM VIAL IV SCH ×3 (11:35→22:02)
[2020-05-09] MEDS: MULTIVIT,THER IRON,CA,FA & MIN 1 TABLET PO SCH (11:35)
[2020-05-09] MEDS: AZITHROMYCIN 500 MG in DEXTROSE 5% IN WATER 250 ML IV SCH (11:35)
[2020-05-09] MEDS: 0.9 % SODIUM CHLORIDE 10 ML SYRINGE IV SCH ×2 (14:25→22:02)
[2020-05-09] MEDS ORDERED: SENNOSIDES/DOCUSATE SODIUM 1 TAB TABLET PO SCH (21:00)
[2020-05-10] MEDS: 0.9 % SODIUM CHLORIDE 1,000 ML IV SCH ×2 (04:51→18:07)
[2020-05-10] MEDS: CEFEPIME 2 GM VIAL IV SCH ×3 (06:13→21:40)
[2020-05-10] MEDS: 0.9 % SODIUM CHLORIDE 10 ML SYRINGE IV SCH ×4 (06:14→21:52)
[2020-05-10 06:29] LABS: Hematocrit 31.4 % (40.1-51.0); Hemoglobin 10.5 g/dL (13.7-17.5); Mean Cell Volume 92.1 fL (80.0-100.0); Mean Corpuscular HGB Conc 33.4 g/dL (31.0-36.0); Mean Platelet Volume 8.6 fL (7.4-10.4); Platelet Count 396 K/mcL (140-440); RBC 3.41 M/mcL (4.63-6.08); WBC 17.4 K/mcL (4.50-11.00)
[2020-05-10 07:03] LABS: ALT/SGPT 37 U/l (0-40); AST/SGOT 22 U/l (0-37); Albumin 2.5 gm/dL (3.2-5.2); Albumin/Globulin Ratio 0.9 (1.0-2.3); Alkaline Phosphatase 85 U/L (39-117); Bilirubin,Direct 0.2 mg/dL (0.0-0.3); Bilirubin,Total 0.7 mg/dL (0.0-1.0); Blood Urea Nitrogen 15 mg/dl (8-23); Calcium 8.4 mg/dl (8.6-10.4); Carbon Dioxide 23 mmol/L (22-30); Chloride 98 mmol/L (96-108); Globulin 2.9 gm/dL (2.2-3.7); Glomerular Filtration Rate 102; Glucose 109 mg/dL (70-105); Lactate Dehydrogenase 156 U/L (94-250); Phosphorous 3.1 mg/dL (2.7-4.5); Triglycerides 131 mg/dl (<150); Uric Acid 3.3 mg/dL (2.5-8.0)
[2020-05-10 08:16] LABS: Eosinophils % (Manual) 7 % (0-7); Hypochromasia FEW (NONE SEEN); Lymphocytes % 7 % (15-49); Monocytes % (Manual) 11 % (1-12); Platelet Estimate NORMAL (NORMAL); RBC Morphology ABNORM (NORMAL); Segmented Neutrophils % 75 % (38-78)
[2020-05-10] MEDS: MULTIVIT,THER IRON,CA,FA & MIN 1 TABLET PO SCH (08:35)
[2020-05-10] MEDS: HEPARIN 5,000 UNIT/ML VIAL SQ SCH ×2 (08:35→21:46)
[2020-05-10] MEDS: DOCUSATE SODIUM 100 MG CAPSULE PO SCH ×2 (08:35→21:40)
[2020-05-10] MEDS: VANCOMYCIN 1,500 MG in 0.9 % SODIUM CHLORIDE 500 ML IV SCH ×2 (09:58→21:40)
[2020-05-10] MEDS: AZITHROMYCIN 500 MG in DEXTROSE 5% IN WATER 250 ML IV SCH (11:42)
[2020-05-10] MEDS ORDERED: MAGNESIUM SULFATE 2 GM/50 ML BAG IV PRN (11:48)
[2020-05-10] MEDS ORDERED: ACETAMINOPHEN 650 MG/65 ML BOTTLE IV PRN (11:48)
[2020-05-10] MEDS ORDERED: guaiFENesin/CODEINE 10 ML UDC PO PRN (11:48)
[2020-05-10] MEDS ORDERED: BISACODYL 10 MG SUPP.RECT PR PRN (11:48)
[2020-05-10] MEDS ORDERED: MELATONIN 3 MG TABLET PO PRN (11:48)
[2020-05-10] MEDS ORDERED: POLYETHYLENE GLYCOL 3350 17 GM PACKET PO PRN (11:48)
[2020-05-10] MEDS ORDERED: ONDANSETRON 4 MG ODT TABLET SL PRN (11:48)
[2020-05-10] MEDS ORDERED: ONDANSETRON 4 MG/2 ML VIAL IV PRN (11:48)
[2020-05-10] MEDS ORDERED: VANCOMYCIN PER PHARMACY IV SCH (11:48)
[2020-05-10] MEDS ORDERED: POTASSIUM CHLORIDE 20 MEQ PACKET PO PRN (11:48)
[2020-05-10] MEDS: ACETAMINOPHEN 325 MG TABLET PO PRN (12:20)
--- NOTE | 2020-05-10 16:13 | Internal Med Progress Note ---
SUBJECTIVE Subjective Patient information: Note initiated : 05/10/20 at 4:08 pm Service Date, if different from initiated Date: [] Patient: Bob Dupont a 60 y/o M admitted on 05/09/20 for SOB . Chief Complaint: Mr. Dupont is a 60-year-old was discharged on 04/26 following osteomyelitis/right foot abscess and cellulitis and MRSA bacteremia. Patient has been receiving IV daptomycin as an outpatient and following up with infectious specialist Dr. mahoney. Over the last 4 days patient has noted increasing fever weakness for which he was evaluated at the ER on the and subsequently with his primary care provider office on the . He has been undergoing hyperbaric oxygen treatment along with wound VAC and wound care. His blood cultures from and have been negative so far. Symptoms were associated with increasing shortness of breath over the last 48 hours to the point he could barely function and at very difficult day due to exertional dyspnea limiting his activities. Initial work-up was consistent with bilateral chest infiltrates/pneumonia patient was started on antibiotic coverage. Hospital service was consulted. At the time of evaluation patient is alert and oriented. He is able to talk in near full sentences. He appears short of breath. He denies lightheadedness dizziness chest pain. He expressed concern about missing his hyperbarics however endorses that his wound has been healing satisfactorily on a wound VAC. He denies any pain or swelling around PICC line catheter site left arm. Right foot woundwound VAC 05/10-patient seen in room along with . No overnight events. Doing well. No concerns, improved shortness of breath. On monitor oxygen. Improved tachypnea. Right foot wound on wound VAC. Constitutional Vitals: Vital Signs Temp Pulse Resp BP Pulse Ox 97.8 F 103 H 30 H 119/64 94 05/10/20 12:01 05/10/20 12:09 05/10/20 12:09 05/10/20 12:01 05/10/20 12:09 Period Temp Pulse Resp BP Sys/Hassan Pulse Ox Last 24 Hr 97.8 F-102.4 F 89-113 18-30 119-138/59-78 92-97 Intake and Output 05/10/20 05/10/20 05/10/20 05:59 13:59 21:59 Intake Total 2104 740 Output Total 750 1050 Balance 1354 -310 Weight 88.451 kg 88.451 kg Patient Weight 05/11/20 05:59 Weight 88.451 kg alert oriented On 1 L oxygen Right foot wound VAC No anxiety Intake & Output: Intake & Output 05/10/20 05/10/20 05/10/20 05:59 13:59 21:59 Intake Total 2104 740 Output Total 750 1050 Balance 1354 -310 Weight 88.451 kg 88.451 kg Intake: IV 1364 500 Sodium Chloride 0.9% 1,000 ml @ 864 50 mls/hr IV .Q20H SARITA Rx#: [id number] Vancomycin 1,500 mg In Sodium 500 500 Chloride 0.9% 500 ml @ 333.3 mls/hr IV Q12H SARITA Rx#: [id number] Oral 740 240 Output: Drainage 0 Woundvac 0 Void Amount 750 1050 Other: Meal Breakfast Percent of Meal Consumed 100% Feeding Ability Independent Urine Appearance Clear Clear Urine Color Bright Yellow Dark Yellow Urine Odor Strong OBJ DATA Labs CBC & Chem 7: 05/11/20 06:43 05/11/20 06:43 Labs: Abnormal Lab Results 05/10/20 05/10/20 05/09/20 05:00 05:00 05:30 WBC 17.4 H RBC 3.41 L Hgb 10.5 L Hct 31.4 L Lymph % (Auto) Eos % (Auto) Gran # Jewell # (Auto) Eos # (Auto) Lymphocytes % 7 L RBC Morphology Abnorm A Hypochromasia Few A ABG Methemoglobin 0.3 L VBG pH 7.49 H VBG pCO2 29.4 L VBG pO2 74 H VBG HCO3 22.0 L VBG Total CO2 22.9 L VBG O2 Saturation 92.0 H Carboxyhemoglobin 4.1 H Total Hemoglobin 11.6 L Sodium 132 L Chloride Glucose 109 H Calcium 8.4 L ALT Total Protein 5.4 L Albumin 2.5 L Albumin/Globulin Ratio 0.9 L 05/09/20 05/09/20 05:00 05:00 WBC 18.3 H RBC 3.77 L Hgb 11.7 L Hct 35.1 L Lymph % (Auto) 9.8 L Eos % (Auto) 10.6 H Gran # 12.58 H Jewell # (Auto) 1.91 H Eos # (Auto) 1.93 H Lymphocytes % RBC Morphology Hypochromasia ABG Methemoglobin VBG pH VBG pCO2 VBG pO2 VBG HCO3 VBG Total CO2 VBG O2 Saturation Carboxyhemoglobin Total Hemoglobin Sodium 131 L Chloride 94 L Glucose 111 H Calcium ALT 41 H Total Protein Albumin 3.0 L Albumin/Globulin Ratio Meds: Medications Acetaminophen (Tylenol) 650 mg PO Q4-6HP PRN; Protocol PRN Reason: Per Pain Protocol/Fever > 101 Last Admin: 05/10/20 12:20 Dose: 650 mg Documented by: Bisacodyl (Dulcolax) 10 mg GA Q2-3DAYS PRN PRN Reason: Constipation Cefepime HCl (Maxipime) 2 gm IV Q8H COUNTS INCLUDE 234 BEDS AT THE [facility] Last Admin: 05/10/20 14:05 Dose: 2 gm Documented by: Docusate Sodium (Colace) 100 mg PO BID COUNTS INCLUDE 234 BEDS AT THE [facility] Guaifenesin/Codeine Phosphate (Robitussin Ac) 10 ml PO Q4HP PRN PRN Reason: Cough Heparin Sodium (Porcine) (Heparin) 5,000 unit SQ Q12 COUNTS INCLUDE 234 BEDS AT THE [facility] Heparin Sodium (Porcine) (Heparin 10 Units/Ml Flush) 2 ml IV Q12 COUNTS INCLUDE 234 BEDS AT THE [facility] Azithromycin 500 mg/ Dextrose 250 mls @ 250 mls/hr IV Q24H COUNTS INCLUDE 234 BEDS AT THE [facility]; Protocol Stop: 05/11/20 09:59 Sodium Chloride (Sodium Chloride 0.9%) 1,000 mls @ 50 mls/hr IV .Q20H COUNTS INCLUDE 234 BEDS AT THE [facility] Stop: 05/11/20 21:49 Acetaminophen (Ofirmev) 650 mg in 65 mls @ 130 mls/hr IV Q6HP PRN; Protocol PRN Reason: Per Pain Protocol/Fever > 101 Magnesium Sulfate (Magnesium Sulfate) 2 gm in 50 mls @ 50 mls/hr IV UD PRN PRN Reason: MG = or < 1.7 Vancomycin HCl 1,500 mg/ (Sodium Chloride) 500 mls @ 333.3 mls/hr IV Q12H COUNTS INCLUDE 234 BEDS AT THE [facility] Iron Carb/Multivit/Talent Sourcer/Folic Acid (Multivitamin W/Minerals) 1 tab PO DAILY COUNTS INCLUDE 234 BEDS AT THE [facility] Melatonin (Melatonin 3mg Tablet) 3 mg PO HSP PRN PRN Reason: Insomnia Ondansetron HCl (Zofran Odt) 4 mg SL Q4-6HP PRN; Protocol PRN Reason: Nausea And Vomiting Ondansetron HCl (Zofran) 4 mg IV Q4-6HP PRN; Protocol PRN Reason: Nausea And Vomiting Polyethylene Glycol (Miralax) 17 gm PO DAILYP PRN PRN Reason: Constipation Potassium Chloride (Klor-Con) 40 meq PO DAILYP PRN PRN Reason: K+ < 3.5 Senna/Docusate Sodium (Senna Plus Tablet) 1 tab PO HS COUNTS INCLUDE 234 BEDS AT THE [facility] Sodium Chloride (Saline Flush) 10 ml IV Q8 [facility]ITA Last Admin: 05/10/20 14:05 Dose: 10 ml Documented by: Vancomycin HCl (Vancomycin Per Pharmacy) 1 order IV UD SARITA; Protocol ABG Interpretation ABG results: 05/09/20 05:30 ABG Methemoglobin 0.3 L VBG pH 7.49 H VBG pCO2 29.4 L VBG pO2 74 H VBG HCO3 22.0 L VBG Total CO2 22.9 L VBG O2 Saturation 92.0 H VBG Base Excess -0.5 A/P Narrative A/P Narrative: * Severe sepsis secondary to bilateral pneumonia -clinically improving on antibiotic coverage. White count down from 18.3-17.4. * Bilateral pneumonia possibly nosocomial acquired/aspiration/COVID-19. Continue cefepime/vancomycin, MRSA nasal smear negative * Recent MRSA bacteremia on OP daptomycin, now on IV vancomycin * Hypoxic hypoxic respiratory failure secondary to nosocomial pneumonia. Wean oxygen as tolerated * Right lower extremity cellulitis, wound care consulted, podiatry on board. On wound VAC * Full code * Flexes heparin Plan * Sepsis management per guidelines * COVID-19 testing/precautions * Wound care per wound physician/podiatry * Cefepime/vancomycin * Dietary intervention/therapies Time Spent With Patient Time: Total time spent is greater than 50% in coordination of care (as documented) at patient's floor/unit and/or counseling patient: QUALITY VTE Deep Vein Thrombosis/Pulmonary Embolism Present on Admission: No
[2020-05-10] MEDS: SENNOSIDES/DOCUSATE SODIUM 1 TAB TABLET PO SCH (21:41)
[2020-05-11] MEDS: 0.9 % SODIUM CHLORIDE 1,000 ML IV SCH ×2 (02:44→10:31)
[2020-05-11] MEDS: CEFEPIME 2 GM VIAL IV SCH ×3 (06:02→22:03)
[2020-05-11] MEDS: 0.9 % SODIUM CHLORIDE 10 ML SYRINGE IV SCH ×3 (06:17→21:15)
[2020-05-11 07:19] LABS: Hematocrit 31.9 % (40.1-51.0); Hemoglobin 10.6 g/dL (13.7-17.5); Mean Cell Volume 91.9 fL (80.0-100.0); Mean Corpuscular HGB Conc 33.2 g/dL (31.0-36.0); Mean Platelet Volume 8.4 fL (7.4-10.4); Platelet Count 395 K/mcL (140-440); RBC 3.47 M/mcL (4.63-6.08); Red Cell Distribution Width 13.1 % (11.5-14.5)
[2020-05-11 07:48] LABS: ALT/SGPT 50 U/l (0-40); AST/SGOT 29 U/l (0-37); Albumin 2.5 gm/dL (3.2-5.2); Albumin/Globulin Ratio 0.9 (1.0-2.3); Alkaline Phosphatase 86 U/L (39-117); Bilirubin,Total 0.4 mg/dL (0.0-1.0); Blood Urea Nitrogen 12 mg/dl (8-23); Calcium 8.5 mg/dl (8.6-10.4); Carbon Dioxide 23 mmol/L (22-30); Chloride 100 mmol/L (96-108); Globulin 2.9 gm/dL (2.2-3.7); Glomerular Filtration Rate 102; Glucose 97 mg/dL (70-105); Lactate Dehydrogenase 106 U/L (94-250); Phosphorous 3.6 mg/dL (2.7-4.5); Triglycerides 190 mg/dl (<150); Uric Acid 3.5 mg/dL (2.5-8.0)
[2020-05-11 07:49] LABS: Bilirubin,Direct < 0.2 mg/dL (0.0-0.3)
[2020-05-11 08:40] LABS: Eosinophils % (Manual) 11 % (0-7); Lymphocytes % 23 % (15-49); Metamyelocytes % 2 % (0-0); Monocytes % (Manual) 14 % (1-12); Platelet Estimate NORMAL (NORMAL); RBC Morphology NORMAL (NORMAL); Segmented Neutrophils % 50 % (38-78)
[2020-05-11] MEDS ORDERED: AZITHROMYCIN 500 MG in DEXTROSE 5% IN WATER 250 ML IV SCH (09:00)
[2020-05-11] MEDS: VANCOMYCIN 1,500 MG in 0.9 % SODIUM CHLORIDE 500 ML IV SCH ×2 (09:23→22:03)
[2020-05-11] MEDS: HEPARIN 5,000 UNIT/ML VIAL SQ SCH ×2 (09:23→21:14)
[2020-05-11] MEDS: DOCUSATE SODIUM 100 MG CAPSULE PO SCH ×2 (09:24→21:14)
[2020-05-11] MEDS: MULTIVIT,THER IRON,CA,FA & MIN 1 TABLET PO SCH (09:24)
--- NOTE | 2020-05-11 09:36 | XRay Report ---
HISTORY: Cirrhosis, follow-up pulmonary infiltrates FINDINGS: There is a patchy distribution of alveolar infiltrates throughout both lungs with the greatest involvement in the left lower lobe. There has been improvement since the time of the chest CT performed at 05/09/20. No pleural effusion is present. The heart size is normal. PICC line remains well positioned in the superior vena cava. No pneumothorax is present. IMPRESSION: Improving bilateral infiltrates, which may be pneumonia Interpreted and Authenticated by: Stephen Harding 05/11/20
--- NOTE | 2020-05-11 12:02 | Internal Med Progress Note ---
SUBJECTIVE Subjective Patient information: Note initiated : 05/11/20 at 11:59 am Service Date, if different from initiated Date: [] Patient: Bob Dupont a 60 y/o M admitted on 05/09/20 for SOB . Chief Complaint: Mr. Dupont is a 60-year-old was discharged on 04/26 following osteomyelitis/right foot abscess and cellulitis and MRSA bacteremia. Patient has been receiving IV daptomycin as an outpatient and following up with infectious specialist Dr. mahoney. Over the last 4 days patient has noted increasing fever weakness for which he was evaluated at the ER on the and subsequently with his primary care provider office on the . He has been undergoing hyperbaric oxygen treatment along with wound VAC and wound care. His blood cultures from and have been negative so far. Symptoms were associated with increasing shortness of breath over the last 48 hours to the point he could barely function and at very difficult day due to exertional dyspnea limiting his activities. Initial work-up was consistent with bilateral chest infiltrates/pneumonia patient was started on antibiotic coverage. Hospital service was consulted. At the time of evaluation patient is alert and oriented. He is able to talk in near full sentences. He appears short of breath. He denies lightheadedness dizziness chest pain. He expressed concern about missing his hyperbarics however endorses that his wound has been healing satisfactorily on a wound VAC. He denies any pain or swelling around PICC line catheter site left arm. Right foot woundwound VAC 05/10-patient seen in room along with . No overnight events. Doing well. No concerns, improved shortness of breath. On monitor oxygen. Improved tachypnea. Right foot wound on wound VAC. 05/11-improved interval chest imaging with resolving infiltrates. Cultures negative so far. White count down to 16. Now on room air. Ongoing wound care/wound VAC. Continuing antibiotic coverage. Will likely discharge in 24 to 48 hours pending clinical improvement and resolution of pneumonia/leukocytosis. Kovic negative Constitutional Vitals: Vital Signs Temp Pulse Resp BP Pulse Ox 98.9 F 100 H 16 128/68 94 05/11/20 08:00 05/11/20 08:00 05/11/20 08:00 05/11/20 08:00 05/11/20 08:00 Period Temp Pulse Resp BP Sys/Hassan Pulse Ox Last 24 Hr 97.8 F-100.3 F 95-106 16-30 119-149/64-79 90-94 Intake and Output 05/10/20 05/11/20 05/11/20 21:59 05:59 13:59 Intake Total 240 1100 900 Output Total 1625 800 Balance 240 -525 100 Weight 88.904 kg Currently on room air Nonlabored breathing Alert oriented Right foot wound VAC Intake & Output: Intake & Output 05/10/20 05/11/20 05/11/20 21:59 05:59 13:59 Intake Total 240 1100 900 Output Total 1625 800 Balance 240 -525 100 Weight 88.904 kg Intake: IV 500 500 Vancomycin 1,500 mg In Sodium 500 500 Chloride 0.9% 500 ml @ 333.3 mls/hr IV Q12H [facility] Rx#: [id number] Oral 240 600 400 Output: Urine Catheter Amount 400 Void Amount 1625 400 Other: Meal Dinner Breakfast Percent of Meal Consumed 75% 100% Feeding Ability Independent Independent Urine Appearance Clear Clear Urine Color Bright Yellow Pale Urine Odor Normal # Voids 2 OBJ DATA Labs CBC & Chem 7: 05/11/20 06:43 05/11/20 06:43 Labs: Abnormal Lab Results 05/11/20 05/11/20 05/10/20 06:43 06:43 05:00 WBC 16.0 H RBC 3.47 L Hgb 10.6 L Hct 31.9 L Lymph % (Auto) Eos % (Auto) Gran # [place] # (Auto) Eos # (Auto) Lymphocytes % Monocytes % (Manual) 14 H Eosinophils % (Manual) 11 H Metamyelocytes % 2 H RBC Morphology Hypochromasia ABG Methemoglobin VBG pH VBG pCO2 VBG pO2 VBG HCO3 VBG Total CO2 VBG O2 Saturation Carboxyhemoglobin Total Hemoglobin Sodium 132 L Chloride Glucose 109 H Calcium 8.5 L 8.4 L ALT 50 H Total Protein 5.4 L 5.4 L Albumin 2.5 L 2.5 L Albumin/Globulin Ratio 0.9 L 0.9 L Triglycerides 190 H 05/10/20 05/09/20 05/09/20 05:00 05:30 05:00 WBC 17.4 H RBC 3.41 L Hgb 10.5 L Hct 31.4 L Lymph % (Auto) Eos % (Auto) Gran # [place] # (Auto) Eos # (Auto) Lymphocytes % 7 L Monocytes % (Manual) Eosinophils % (Manual) Metamyelocytes % RBC Morphology Abnorm A Hypochromasia Few A ABG Methemoglobin 0.3 L VBG pH 7.49 H VBG pCO2 29.4 L VBG pO2 74 H VBG HCO3 22.0 L VBG Total CO2 22.9 L VBG O2 Saturation 92.0 H Carboxyhemoglobin 4.1 H Total Hemoglobin 11.6 L Sodium 131 L Chloride 94 L Glucose 111 H Calcium ALT 41 H Total Protein Albumin 3.0 L Albumin/Globulin Ratio Triglycerides 05/09/20 05:00 WBC 18.3 H RBC 3.77 L Hgb 11.7 L Hct 35.1 L Lymph % (Auto) 9.8 L Eos % (Auto) 10.6 H Gran # 12.58 H [place] # (Auto) 1.91 H Eos # (Auto) 1.93 H Lymphocytes % Monocytes % (Manual) Eosinophils % (Manual) Metamyelocytes % RBC Morphology Hypochromasia ABG Methemoglobin VBG pH VBG pCO2 VBG pO2 VBG HCO3 VBG Total CO2 VBG O2 Saturation Carboxyhemoglobin Total Hemoglobin Sodium Chloride Glucose Calcium ALT Total Protein Albumin Albumin/Globulin Ratio Triglycerides Meds: Medications Acetaminophen (Tylenol) 650 mg PO Q4-6HP PRN; Protocol PRN Reason: Per Pain Protocol/Fever > 101 Last Admin: 05/10/20 12:20 Dose: 650 mg Documented by: Bisacodyl (Dulcolax) 10 mg [place] Q2-3DAYS PRN PRN Reason: Constipation Cefepime HCl (Maxipime) 2 gm IV Q8H [facility] Last Admin: 05/11/20 06:02 Dose: 2 gm Documented by: Docusate Sodium (Colace) 100 mg PO BID [facility] Last Admin: 05/11/20 09:24 Dose: 100 mg Documented by: Guaifenesin/Codeine Phosphate (Robitussin Ac) 10 ml PO Q4HP PRN PRN Reason: Cough Heparin Sodium (Porcine) (Heparin) 5,000 unit SQ Q12 [facility] Last Admin: 05/11/20 09:23 Dose: 5,000 unit Documented by: Heparin Sodium (Porcine) (Heparin 10 Units/Ml Flush) 2 ml IV Q12 [facility] Last Admin: 05/11/20 09:24 Dose: 2 ml Documented by: Sodium Chloride (Sodium Chloride 0.9%) 1,000 mls @ 50 mls/hr IV .Q20H [facility] Stop: 05/11/20 21:49 Last Admin: 05/11/20 10:31 Dose: Not Given Documented by: Acetaminophen (Ofirmev) 650 mg in 65 mls @ 130 mls/hr IV Q6HP PRN; Protocol PRN Reason: Per Pain Protocol/Fever > 101 Magnesium Sulfate (Magnesium Sulfate) 2 gm in 50 mls @ 50 mls/hr IV UD PRN PRN Reason: MG = or < 1.7 Vancomycin HCl 1,500 mg/ (Sodium Chloride) 500 mls @ 333.3 mls/hr IV Q12H [facility] Last Infusion: 05/11/20 11:00 Dose: Infused Documented by: Iron Carb/Multivit/[place]/Folic Acid (Multivitamin W/Minerals) 1 tab PO DAILY [facility] Last Admin: 05/11/20 09:24 Dose: 1 tab Documented by: Melatonin (Melatonin 3mg Tablet) 3 mg PO HSP PRN PRN Reason: Insomnia Ondansetron HCl (Zofran Odt) 4 mg SL Q4-6HP PRN; Protocol PRN Reason: Nausea And Vomiting Ondansetron HCl (Zofran) 4 mg IV Q4-6HP PRN; Protocol PRN Reason: Nausea And Vomiting Polyethylene Glycol (Miralax) 17 gm PO DAILYP PRN PRN Reason: Constipation Potassium Chloride (Klor-Con) 40 meq PO DAILYP PRN PRN Reason: K+ < 3.5 Senna/Docusate Sodium (Senna Plus Tablet) 1 tab PO HS [facility] Last Admin: 05/10/20 21:41 Dose: 1 tab Documented by: Sodium Chloride (Saline Flush) 10 ml IV Q8 [facility] Last Admin: 05/11/20 06:17 Dose: 10 ml Documented by: Vancomycin HCl (Vancomycin Per Pharmacy) 1 order IV UD [facility]; Protocol ABG Interpretation ABG results: 05/09/20 05:30 ABG Methemoglobin 0.3 L VBG pH 7.49 H VBG pCO2 29.4 L VBG pO2 74 H VBG HCO3 22.0 L VBG Total CO2 22.9 L VBG O2 Saturation 92.0 H VBG Base Excess -0.5 A/P Narrative A/P Narrative: * Severe sepsis secondary to bilateral pneumonia -clinically improving on antibiotic coverage. White count down from 18.3-17.4. * Bilateral pneumonia possibly nosocomial acquired/aspiration/COVID-19. Continue cefepime/vancomycin, MRSA nasal smear negative * Recent MRSA bacteremia was on OP daptomycin, now on IV vancomycin * Hypoxic hypoxic respiratory failure secondary to nosocomial pneumonia. Wean oxygen as tolerated * Right lower extremity cellulitis, wound care consulted, podiatry on board. On wound VAC * Full code * Prophylaxis heparin Plan * Continue antibiotics * Wound VAC/wound care per wound team/podiatry * Dietary intervention/therapies * Discharge planning Time Spent With Patient Time: Total time spent is greater than 50% in coordination of care (as documented) at patient's floor/unit and/or counseling patient: QUALITY VTE Deep Vein Thrombosis/Pulmonary Embolism Present on Admission: No
[2020-05-11] MEDS: SENNOSIDES/DOCUSATE SODIUM 1 TAB TABLET PO SCH (21:14)
[2020-05-11] MEDS: ACETAMINOPHEN 325 MG TABLET PO PRN (21:16)
[2020-05-12] MEDS: 0.9 % SODIUM CHLORIDE 10 ML SYRINGE IV SCH ×2 (05:58→14:05)
[2020-05-12] MEDS: CEFEPIME 2 GM VIAL IV SCH ×2 (05:58→14:04)
[2020-05-12 06:50] LABS: Hematocrit 31.4 % (40.1-51.0); Hemoglobin 10.5 g/dL (13.7-17.5); Mean Cell Volume 92.1 fL (80.0-100.0); Mean Corpuscular HGB Conc 33.4 g/dL (31.0-36.0); Mean Platelet Volume 8.6 fL (7.4-10.4); Platelet Count 427 K/mcL (140-440); RBC 3.41 M/mcL (4.63-6.08); Red Cell Distribution Width 13.2 % (11.5-14.5); WBC 12.6 K/mcL (4.50-11.00)
[2020-05-12 07:03] LABS: ALT/SGPT 61 U/l (0-40); AST/SGOT 37 U/l (0-37); Albumin 2.8 gm/dL (3.2-5.2); Alkaline Phosphatase 86 U/L (39-117); Bilirubin,Direct < 0.2 mg/dL (0.0-0.3); Bilirubin,Total 0.3 mg/dL (0.0-1.0); Blood Urea Nitrogen 10 mg/dl (8-23); Calcium 8.5 mg/dl (8.6-10.4); Carbon Dioxide 25 mmol/L (22-30); Chloride 101 mmol/L (96-108); Globulin 2.7 gm/dL (2.2-3.7); Glomerular Filtration Rate 102; Glucose 93 mg/dL (70-105); Lactate Dehydrogenase 115 U/L (94-250); Phosphorous 3.8 mg/dL (2.7-4.5); Triglycerides 196 mg/dl (<150); Uric Acid 3.7 mg/dL (2.5-8.0)
--- NOTE | 2020-05-12 08:23 | Discharge Summary ---
Discharge Provider Provider Patient information: Note initiated : 05/12/20 at 8:19 am Service Date, if different from initiated Date: [] Patient: Bob Dupont a 60 y/o M admitted on 05/09/20 for SOB . Chief Complaint: Discharge diagnosis * Severe sepsis secondary to bilateral pneumonia -clinically resolved with normalization of white count from 18.3->12 * Bilateral pneumonia possibly nosocomial acquired/aspiration/COVID-19 negative. Continue ceftriaxone for additional 5 days. Clinically improved on interval imaging. * Recent MRSA bacteremia was on OP daptomycin, managed on IV vancomycin patient. Restart daptomycin on discharge to be continued for additional 3 weeks or as per infectious disease Dr. mahoney outpatient * Hypoxic hypoxic respiratory failure secondary to nosocomial pneumonia. Fully resolved now on room air * Right lower extremity cellulitis, wound care consulted, podiatry on board. On wound VAC Brief hospital course Mr. Dupont is a 60-year-old was discharged on 04/26 following osteomyelitis/right foot abscess and cellulitis and MRSA bacteremia. Patient has been receiving IV daptomycin as an outpatient and following up with infectious specialist Dr. mahoney. Over the last 4 days patient has noted increasing fever weakness for which he was evaluated at the ER on the and subsequently with his primary care provider office on the . He has been undergoing hyperbaric oxygen treatment along with wound VAC and wound care. His blood cultures from and have been negative so far. Symptoms were associated with increasing shortness of breath over the last 48 hours to the point he could barely function and at very difficult day due to exertional dyspnea limiting his activities. Initial work-up was consistent with bilateral chest infiltrates/pneumonia patient was started on antibiotic coverage. Hospital service was consulted. At the time of evaluation patient is alert and oriented. He is able to talk in near full sentences. He appears short of breath. He denies lightheadedness dizziness chest pain. He expressed concern about missing his hyperbarics however endorses that his wound has been healing satisfactorily on a wound VAC. He denies any pain or swelling around PICC line catheter site left arm. Right foot woundwound VAC 05/10-patient seen in room along with . No overnight events. Doing well. No concerns, improved shortness of breath. On monitor oxygen. Improved tachypnea. Right foot wound on wound VAC. 05/11-improved interval chest imaging with resolving infiltrates. Cultures negative so far. White count down to 16. Now on room air. Ongoing wound care/ wound VAC. Continuing antibiotic coverage. Will likely discharge in 24 to 48 hours pending clinical improvement and resolution of pneumonia/leukocytosis. Kovic negative 05/12-patient doing remarkably well. No overnight events. On antibiotic coverage. White count on 12,000. On room air. Feels at baseline. Discharging today with advised to follow-up with wound care for continued / hyperbaric treatments. Continue outpatient daptomycin/ceftriaxone at infusion center. Follow-up with infectious specialist/wound care on discharge With Date of admission: 05/09/20 09:34 Discharge date: 05/12/20 Primary care physician: Lorne Back DO Consults: 05/09/20 Consult to Physician [CONS] Stat Comment: Consulting Provider: Jaxson Arriaza Reason For Exam: Physician to Consult 05/09/20 14:12 Consult to Physician [CONS] Routine Comment: Consulting Provider: Simon Knight Reason For Exam: foot wound 05/11/20 08:15 Consult to Physician [CONS] Routine Comment: to follow wound care and healing Consulting Provider: Charles Bryan Reason For Exam: Physician to Consult Discharge Meds Discharge Medications Home Medications atorvastatin 10 mg PO QHS 04/18/20 [History Confirmed 05/10/20 Last Taken 04/17/20] sildenafil (pulm.hypertension) 10 mg PO DAILYP PRN 04/20/20 [History Confirmed 05/10/20 Last Taken Unknown] daptomycin [Cubicin RF] 700 mg IV Q24H #42 ea 04/26/20 [Rx Confirmed 05/10/20 Last Taken Unknown] hydrocodone-acetaminophen 1 - 2 tab PO Q4HP PRN #20 tab 04/26/20 [Rx Confirmed 05/10/20 Last Taken Unknown] ceftriaxone in dextrose,iso-os 2 g IV Q24H #5 ea 05/12/20 [Rx Last Taken Unknown] COURSE Hospital Course Hospital course: . Discharge diagnosis: . Time Spent with Patient Time attestation: Total time spent providing and/or coordinating discharge services: EXAM Constitutional Vitals: Temp Pulse Resp BP Pulse Ox 98.1 F 76 16 140/76 91 05/12/20 06:53 05/12/20 06:53 05/12/20 06:53 05/12/20 06:53 05/12/20 06:53 Discharge Data Data Completed and Pending Labs on day of discharge: Labs from last 24 hours 05/12/20 05/12/20 05/12/20 07:57 06:17 06:17 WBC 12.6 H RBC 3.41 L Hgb 10.5 L Hct 31.4 L MCV 92.1 MCH 30.8 MCHC 33.4 RDW 13.2 Plt Count 427 MPV 8.6 Total Counted Pending Seg Neutrophils % Band Neutrophils % Not Reportable Lymphocytes % Monocytes % (Manual) Eosinophils % (Manual) Metamyelocytes % Platelet Estimate Pending RBC Morphology Pending Sodium 138 Potassium 3.8 Chloride 101 Carbon Dioxide 25 Anion Gap 12.0 BUN 10 Creatinine 0.7 GFR Calculation 102 Glucose 93 Uric Acid 3.7 Calcium 8.5 L Phosphorus 3.8 Magnesium 2.3 Total Bilirubin 0.3 Direct Bilirubin < 0.2 GGT 48 AST 37 ALT 61 H Alkaline Phosphatase 86 Lactate Dehydrogenase 115 Total Protein 5.5 L Albumin 2.8 L Globulin 2.7 Albumin/Globulin Ratio 1.0 Triglycerides 196 H Vancomycin Trough Pending 05/11/20 06:43 WBC RBC Hgb Hct MCV MCH MCHC RDW Plt Count MPV Total Counted 100 Seg Neutrophils % 50 Band Neutrophils % Lymphocytes % 23 Monocytes % (Manual) 14 H Eosinophils % (Manual) 11 H Metamyelocytes % 2 H Platelet Estimate Normal RBC Morphology Normal Sodium Potassium Chloride Carbon Dioxide Anion Gap BUN Creatinine GFR Calculation Glucose Uric Acid Calcium Phosphorus Magnesium Total Bilirubin Direct Bilirubin GGT AST ALT Alkaline Phosphatase Lactate Dehydrogenase Total Protein Albumin Globulin Albumin/Globulin Ratio Triglycerides Vancomycin Trough Preliminary micro results at discharge 05/09/20 05:40 Blood Culture - Preliminary Blood 05/09/20 05:30 Blood Culture - Preliminary Blood 05/10/20 16:46 Sputum Culture - Preliminary Sputum - Expectorated Discharge Plan Patient/Caregiver Discharge Instructions Activity: increase activity as tolerated Diet: Regular Diet Activity Restrictions/Additional Instructions: Continue IV daptomycin as per LB mahoney IV Rocephin for additional 5 days Wound care follow-up hyperbarics per wound care Wound care dressings per wound care Weightbearing per wound care Prescriptions: New ceftriaxone in dextrose,iso-os 2 gram/50 mL Piggyback 2 g IV Q24H Qty: 5 RF: 0 Continued atorvastatin 10 mg Tablet 10 mg PO QHS RF: 0 sildenafil (pulm.hypertension) 20 mg tablet 10 mg PO DAILYP PRN (Reason: Erectile Dysfunction) RF: 0 daptomycin [Cubicin RF] 500 mg Recon Soln 700 mg IV Q24H Qty: 42 RF: 0 hydrocodone-acetaminophen 5-325 mg Tablet 1 - 2 tab PO Q4HP PRN (Reason: Per Pain Protocol) Qty: 20 RF: 0 Follow Up Plan Follow up with: Lorne Back DO [Primary Care Provider] - Patient Disposition: Home, Self-Care Prognosis: Serious Rehab Potential: Fair I certify that the patient requires SNF services: No Overall status at discharge: patient is progressing back to baseline Discharge Orders: Discharge Order (Routine); Ordered 05/12/20 Ordered By: Jaxson SADLER VTE Deep Vein Thrombosis/Pulmonary Embolism Present on Admission: No
[2020-05-12 08:42] LABS: Eosinophils % (Manual) 20 % (0-7); Lymphocytes % 25 % (15-49); Monocytes % (Manual) 3 % (1-12); Platelet Estimate NORMAL (NORMAL); RBC Morphology NORMAL (NORMAL); Segmented Neutrophils % 52 % (38-78)
[2020-05-12] MEDS: HEPARIN 5,000 UNIT/ML VIAL SQ SCH (09:00)
[2020-05-12] MEDS: DOCUSATE SODIUM 100 MG CAPSULE PO SCH (09:03)
[2020-05-12] MEDS: MULTIVIT,THER IRON,CA,FA & MIN 1 TABLET PO SCH (09:03)
[2020-05-12] MEDS: VANCOMYCIN 1,500 MG in 0.9 % SODIUM CHLORIDE 500 ML IV SCH (10:58)
[2020-05-12] MEDS: ACETAMINOPHEN 325 MG TABLET PO PRN (11:03)
== END 2020-05-12 14:30 | disposition home or self-care (01) | DRG 871 ==
LOC: ED 03:21 → ICU 09:34 → MEDSUR 05-10 14:58
PROVIDERS: ADMIT Internal Medicine; ATTEND Internal Medicine

== ENCOUNTER 2020-05-18 17:53 | Inpatient (IN) ==
--- NOTE | 2020-05-18 19:10 | Emergency Department Note ---
HPI General Chief complaint: Recheck/Abnormal Lab/Rx Stated complaint: sent by Dr Knight Time Seen by Provider: 05/18/20 18:02 Source: patient Mode of arrival: wheelchair Limitations: no limitations History of Present Illness HPI Narrative: Narrative: 60-year-old male comes in complaining of right foot pain. He sees Dr. Simon Knight D.P.M.. Dr. Knight called me and advised me the patient would likely need admitted for further surgical care of his right foot. He has had 2 previous surgeries to that right foot for MRSA infection and osteomyelitis. He has had fever lately. He just finished a course of dapt omycin and is now taking vancomycin. Patient also notes that he has recent bout of pneumonia. He is not diabetic Related Data Home Medications Medication Instructions Recorded Confirmed atorvastatin 10 mg PO QHS 04/18/20 05/18/20 sildenafil (pulm.hypertension) 10 mg PO DAILYP PRN 04/20/20 05/18/20 Previous Rx's Medication Instructions Recorded hydrocodone-acetaminophen 1 - 2 tab PO Q4HP PRN #20 tab 04/26/20 Allergies Allergy/AdvReac Type Severity Reaction Status Date / Time morphine AdvReac Mild Hallucinati Verified 05/18/20 20:59 ng Review of Systems ROS ROS Narrative: Narrative: All systems ED: reviewed and negative except as stated. [facility] Narrative Patient History Narrative: Narrative: Medical/Surgical/Family History All Active Problems (Updated 05/18/20 @ 19:10 by Nelson Soriano MD) Pneumonia (Acute) Hypoxia (Acute) Fever (Acute) Osteomyelitis of foot (Acute) Status post PICC central line placement (Acute) Strain of great toe (Acute) Contusion of foot, right (Acute) Cellulitis of right foot (Acute) Elevated WBC count (Acute) Environmental allergies (Chronic) Rotator cuff impingement syndrome (Chronic) FH: CAD (coronary artery disease) (Chronic) Osteoarthritis (Chronic) Microhematuria (Chronic) Reactive airway disease (Chronic) Onychomycosis (Chronic) Insomnia (Chronic) Essential hypertension (Chronic) Hyperlipidemia (Chronic) Hearing loss (Chronic) Erectile dysfunction (Chronic) Dermatitis (Chronic) Osteoarthritis of hip (Chronic 01/04/15) Colon adenoma (Chronic 12/15/14) Asthma (Chronic) Medical History Abdominal pain (Resolved) Asthma (Chronic) Bilateral otitis media (Inactive) mild Bronchitis (Resolved 01/04/15) Calculus of kidney (Resolved) Colon adenoma (Chronic 12/15/14) tubular adenmoa. 06/16/17. 5-7 year follow-up per Dr. Juarez Dermatitis (Chronic) forehead, likely rosacea Erectile dysfunction (Chronic) Well-controlled on Viagra 10 mg as needed. Essential hypertension (Chronic) FH: CAD (coronary artery disease) (Chronic) Father Hearing loss (Chronic) Hyperlipidemia (Chronic) Well-controlled on Lipitor 10 mg daily. No myalgias. Insomnia (Chronic) Microhematuria (Chronic) H/O Obstructive uropathy (Resolved 06/13/13) Onychomycosis (Chronic) Osteoarthritis (Chronic) Osteoarthritis of hip (Chronic 01/04/15) Pyelonephritis (Resolved) Reactive airway disease (Chronic) Tinea cruris (Resolved) Trochanteric bursitis (Resolved) Ureteral calculus (Resolved) passed Surgical History H/O colonoscopy (Resolved 06/16/17) 05/18/12 Colon ascending; tubular adenoma. Hemorrhoids. 06/16/17 TA, 5-[address] Juarez. History of ureter stent (Resolved 06/12/13) Hx of appendectomy (Resolved) S/P tonsillectomy (Resolved) Family History Father Coronary artery disease Social History Smoking Status: Never smoker Alcohol Intake Frequency: does not drink Substance Use: does not use Exam Narrative Narrative: Narrative: Patient shows me a picture of his foot from earlier today so I did not need to unwrap the bandage from Dr. Knight's office. He has significant areas of missing skin status post debridement with exposed muscle and tendons over the first ray both laterally and dorsally. There is redness and edema as well in the area surrounding. Thin male no acute distress. Normocephalic atraumatic. Conjunctive are clear sclerae white nonicteric. No nasal discharge or congestion. Oropharynx pink and moist. Neck is supple without lymphadenopathy thyromegaly. Heart is regular rate and rhythm no murmur appreciated. Lungs clear to auscultation bilaterally without wheezes rales rhonchi or respiratory distress. General Limitations: no limitations Course Vital Signs Vital signs: Vital Signs Temperature 97.7 F 05/18/20 17:54 Pulse Rate 111 H 05/18/20 17:54 Respiratory Rate 16 05/18/20 17:54 Blood Pressure 125/71 05/18/20 17:54 Pulse Oximetry (%) 92 05/18/20 17:54 Temperature 98.3 F 05/18/20 23:48 Pulse Rate 105 H 05/18/20 23:48 Respiratory Rate 16 05/18/20 23:48 Blood Pressure 122/73 05/18/20 23:48 Pulse Oximetry (%) 90 05/18/20 23:48 MDM MDM Narrative Medical decision making narrative: Narrative: After my discussion with Dr. Knight, ordered laboratory and an x-ray of his right foot for osteomyelitis. Plan on admission to hospitalist, for failure of outpatient treatment, after getting laboratory back and assessing for sepsis. He is already had antibiotics and so we will not repeat those today unless significant laboratory is noted. I discussed the case with Dr. Guzmán, our hospitalist. He will accept the patient for further care and evaluation in the hospital. Lab Data Result diagrams: 05/18/20 18:13 05/18/20 18:13 Labs: Lab Results 05/18/20 05/18/20 05/18/20 Range/Units 18:13 18:13 18:13 WBC 14.2 H (4.50-11.00) K/mcL RBC 3.84 L (4.63-6.08) M/mcL Hgb 11.7 L (13.7-17.5) g/dL Hct 35.5 L (40.1-51.0) % MCV 92.4 (80.0-100.0) fL MCH 30.5 (26.0-34.0) pg MCHC 33.0 (31.0-36.0) g/dL RDW 13.4 (11.5-14.5) % Plt Count 657 H (140-440) K/mcL MPV 8.4 (7.4-10.4) fL Gran % 61.6 (38.0-78.0) % Lymph % (Auto) 16.0 (15.5-49.0) % [place] % (Auto) 7.9 (1.0-12.0) % Eos % (Auto) 13.8 H (0.0-7.0) % Baso % (Auto) 0.7 (0.0-2.0) % Gran # 8.77 H (1.80-8.00) K/mcL Lymph # (Auto) 2.28 (1.50-4.80) K/mcL [place] # (Auto) 1.13 H (0.10-0.90) K/mcL Eos # (Auto) 1.96 H (0.00-0.70) K/mcL Baso # (Auto) 0.10 (0.00-0.30) K/mcL VBG Lactic Acid 2.1 H (0.5-2.0) mmol/L Sodium 136 (133-145) mmol/L Potassium 4.2 (3.3-5.1) mmol/L Chloride 96 (96-108) mmol/L Carbon Dioxide 24 (22-30) mmol/L Anion Gap 16.0 (8-16) BUN 18 (8-23) mg/dl Creatinine 0.9 (0.7-1.2) mg/dl GFR Calculation 92 Glucose 154 H (70-105) mg/dL Calcium 10.0 (8.6-10.4) mg/dl Total Bilirubin 0.2 (0.0-1.0) mg/dL AST 58 H (0-37) U/l ALT 125 H (0-40) U/l Alkaline Phosphatase 172 H (39-117) U/L C-Reactive Protein 11.8 H (0.0-0.8) mg/dl Total Protein 6.5 (5.9-8.4) gm/dL Albumin 3.2 (3.2-5.2) gm/dL Globulin 3.3 (2.2-3.7) gm/dL Albumin/Globulin Ratio 1.0 (1.0-2.3) Procalcitonin (<0.10) ng/mL 05/18/20 Range/Units 18:13 WBC (4.50-11.00) K/mcL RBC (4.63-6.08) M/mcL Hgb (13.7-17.5) g/dL Hct (40.1-51.0) % MCV (80.0-100.0) fL MCH (26.0-34.0) pg MCHC (31.0-36.0) g/dL RDW (11.5-14.5) % Plt Count (140-440) K/mcL MPV (7.4-10.4) fL Gran % (38.0-78.0) % Lymph % (Auto) (15.5-49.0) % [place] % (Auto) (1.0-12.0) % Eos % (Auto) (0.0-7.0) % Baso % (Auto) (0.0-2.0) % Gran # (1.80-8.00) K/mcL Lymph # (Auto) (1.50-4.80) K/mcL [place] # (Auto) (0.10-0.90) K/mcL Eos # (Auto) (0.00-0.70) K/mcL Baso # (Auto) (0.00-0.30) K/mcL VBG Lactic Acid (0.5-2.0) mmol/L Sodium (133-145) mmol/L Potassium (3.3-5.1) mmol/L Chloride (96-108) mmol/L Carbon Dioxide (22-30) mmol/L Anion Gap (8-16) BUN (8-23) mg/dl Creatinine (0.7-1.2) mg/dl GFR Calculation Glucose (70-105) mg/dL Calcium (8.6-10.4) mg/dl Total Bilirubin (0.0-1.0) mg/dL AST (0-37) U/l ALT (0-40) U/l Alkaline Phosphatase (39-117) U/L C-Reactive Protein (0.0-0.8) mg/dl Total Protein (5.9-8.4) gm/dL Albumin (3.2-5.2) gm/dL Globulin (2.2-3.7) gm/dL Albumin/Globulin Ratio (1.0-2.3) Procalcitonin 0.16 H (<0.10) ng/mL Discharge Plan Patient/Caregiver Discharge Instructions Pt seen by MARKETING ASSISTANT MANAGER/PA only: No Clinical Impression: Osteomyelitis of foot Qualifiers: Osteomyelitis type: other acute Laterality: right Qualified Code(s): M86.171 - Other acute osteomyelitis, right ankle and foot Patient Disposition: Xfer As Inpt ([facility]) Condition: Serious Discharge Date/Time: 05/18/20 20:42 Discharge Location: [facility]
[2020-05-18 19:32] LABS: Basophils % (Auto) 0.7 % (0.0-2.0); Eosinophils # (Auto) 1.96 K/mcL (0.00-0.70); Eosinophils % (Auto) 13.8 % (0.0-7.0); Granulocytes % (Auto) 61.6 % (38.0-78.0); Hematocrit 35.5 % (40.1-51.0); Hemoglobin 11.7 g/dL (13.7-17.5); Lymphocytes # (Auto) 2.28 K/mcL (1.50-4.80); Mean Cell Volume 92.4 fL (80.0-100.0); Mean Platelet Volume 8.4 fL (7.4-10.4); Monocytes # (Auto) 1.13 K/mcL (0.10-0.90); Monocytes % (Auto) 7.9 % (1.0-12.0); Platelet Count 657 K/mcL (140-440); RBC 3.84 M/mcL (4.63-6.08); Red Cell Distribution Width 13.4 % (11.5-14.5); WBC 14.2 K/mcL (4.50-11.00)
[2020-05-18 19:58] LABS: ALT/SGPT 125 U/l (0-40); AST/SGOT 58 U/l (0-37); Albumin 3.2 gm/dL (3.2-5.2); Alkaline Phosphatase 172 U/L (39-117); Bilirubin,Total 0.2 mg/dL (0.0-1.0); Blood Urea Nitrogen 18 mg/dl (8-23); C-Reactive Protein 11.8 mg/dl (0.0-0.8); Carbon Dioxide 24 mmol/L (22-30); Chloride 96 mmol/L (96-108); Globulin 3.3 gm/dL (2.2-3.7); Glomerular Filtration Rate 92; Glucose 154 mg/dL (70-105)
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
[2020-05-18] MEDS ORDERED: PROCHLORPERAZINE 10 MG/2 ML VIAL IV PRN (20:56)
[2020-05-18] MEDS ORDERED: morphine 4 MG/ML VIAL IV PRN (20:56)
[2020-05-18] MEDS ORDERED: POTASSIUM CHLORIDE 40 MEQ in DEXTROSE 5% IN WATER 500 ML IV PRN (20:56)
[2020-05-18] MEDS ORDERED: ONDANSETRON 4 MG/2 ML VIAL IV PRN (20:56)
[2020-05-18] MEDS ORDERED: POLYETHYLENE GLYCOL 3350 17 GM PACKET PO PRN (20:56)
[2020-05-18] MEDS ORDERED: VANCOMYCIN PER PHARMACY IV SCH (20:56)
[2020-05-18] MEDS ORDERED: HEPARIN 5,000 UNIT/ML VIAL SQ ONE (20:56)
[2020-05-18] MEDS ORDERED: MAGNESIUM SULFATE 2 GM/50 ML BAG IV PRN (20:56)
[2020-05-18] MEDS ORDERED: ACETAMINOPHEN 325 MG TABLET PO PRN (20:56)
[2020-05-18] MEDS ORDERED: IPRATROPIUM/ALBUTEROL 3 ML AMPUL.NEB NEB PRN (20:56)
[2020-05-18] MEDS ORDERED: POTASSIUM CHLORIDE 20 MEQ TABLET PO PRN ×2 (20:56)
[2020-05-18] MEDS ORDERED: SENNOSIDES 1 TABLET PO PRN (20:56)
[2020-05-18] MEDS: ATORVASTATIN 10 MG TABLET PO SCH (21:49)
[2020-05-18] MEDS: DOCUSATE SODIUM 100 MG CAPSULE PO SCH (21:49)
[2020-05-18] MEDS: VANCOMYCIN 1,500 MG in 0.9 % SODIUM CHLORIDE 500 ML IV SCH (21:50)
[2020-05-19] MEDS: 0.9 % SODIUM CHLORIDE 10 ML SYRINGE IV SCH ×6 (01:04→21:06)
--- NOTE | 2020-05-19 04:35 | XRay Report ---
CLINICAL INFORMATION: cellulitis COMPARISON: X-rays three days prior - 05/15/2020 FINDINGS: Patchy osteolysis throughout the first metatarsal predominantly in the base and head region is unchanged. This is new new from the comparison x-ray three weeks ago. Findings compatible with stable osteomyelitis with osteolytic destruction. Mild periosteal new bone is seen along the distal diaphysis. Patchy osteolysis in the first proximal phalangeal base and the 14 mm region of osteolysis in the first distal phalangeal base are compatible with stable osteomyelitis. No other osseous abnormality. Diffuse soft tissue swelling noted. IMPRESSION: No change in the first asif multifocal osteomyelitis including the first metatarsal, base of proximal phalanx and distal phalanx base Severe first MTP narrowing has progressed since a 04/10/2020 great toe plain film. Suspect septic arthritis superimposed upon underlying degeneration Interpreted and Authenticated by: Lorne Sam 05/19/20
[2020-05-19 06:48] LABS: Basophils # (Auto) 0.12 K/mcL (0.00-0.30); Basophils % (Auto) 0.8 % (0.0-2.0); Eosinophils # (Auto) 2.04 K/mcL (0.00-0.70); Eosinophils % (Auto) 14.4 % (0.0-7.0); Granulocytes % (Auto) 57.4 % (38.0-78.0); Hematocrit 31.6 % (40.1-51.0); Hemoglobin 10.3 g/dL (13.7-17.5); Lymphocytes # (Auto) 2.75 K/mcL (1.50-4.80); Lymphocytes % (Auto) 19.4 % (15.5-49.0); Mean Cell Volume 91.9 fL (80.0-100.0); Mean Corpuscular HGB Conc 32.6 g/dL (31.0-36.0); Mean Platelet Volume 8.3 fL (7.4-10.4); Monocytes # (Auto) 1.13 K/mcL (0.10-0.90); Platelet Count 590 K/mcL (140-440); RBC 3.44 M/mcL (4.63-6.08); Red Cell Distribution Width 13.5 % (11.5-14.5); WBC 14.2 K/mcL (4.50-11.00)
[2020-05-19 07:19] LABS: ALT/SGPT 104 U/l (0-40); AST/SGOT 45 U/l (0-37); Albumin 2.8 gm/dL (3.2-5.2); Alkaline Phosphatase 142 U/L (39-117); Bilirubin,Direct < 0.2 mg/dL (0.0-0.3); Bilirubin,Total 0.2 mg/dL (0.0-1.0); Blood Urea Nitrogen 13 mg/dl (8-23); Calcium 9.3 mg/dl (8.6-10.4); Carbon Dioxide 24 mmol/L (22-30); Chloride 100 mmol/L (96-108); Globulin 2.9 gm/dL (2.2-3.7); Glomerular Filtration Rate 96; Glucose 94 mg/dL (70-105); Lactate Dehydrogenase 135 U/L (94-250); Phosphorous 4.5 mg/dL (2.7-4.5); Triglycerides 172 mg/dl (<150); Uric Acid 4.9 mg/dL (2.5-8.0)
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
--- NOTE | 2020-05-19 08:13 | Orthopedic Consult Note ---
HPI Data of Consult Primary Care Provider: Lorne Back DO Consult Narrative Patient Information: Note initiated : 05/19/20 at 8:08 am Service Date, if different from initiated Date: [] Patient: Bob Dupont a 60 y/o M admitted on 05/18/20 for Rt foot pain/sent by Dr Knight. Chief Complaint: [right foot infection] Philip is a 60-year-old male with a longstanding history of a bone and soft tissue infection of the right foot. He suffered a traumatic injury several weeks ago to the top of his right foot. He was evaluated in the emergency department. At that point was found to be a traumatic injury without major co nsequence. Within a week the foot became red hot and very swollen. He returned to the emergency room to have severe cellulitic infection and possible bone infection. He received multiple debridements, IV antibiotics, hyperbaric oxygen therapy, and standard wound care. Soft tissues responded to therapy, however the bone continues to erode due to the underlying osteomyelitic infection failing to respond to therapy. cc:: CC: Dyllan Guzmán Review of Systems All systems: reviewed and no additional remarkable complaints except as stated PFSH PFSH All Active Problems (Updated 05/18/20 @ 19:10 by Nelson Soriano MD) Pneumonia (Acute) Hypoxia (Acute) Fever (Acute) Osteomyelitis of foot (Acute) Status post PICC central line placement (Acute) Strain of great toe (Acute) Contusion of foot, right (Acute) Cellulitis of right foot (Acute) Elevated WBC count (Acute) Environmental allergies (Chronic) Rotator cuff impingement syndrome (Chronic) FH: CAD (coronary artery disease) (Chronic) Osteoarthritis (Chronic) Microhematuria (Chronic) Reactive airway disease (Chronic) Onychomycosis (Chronic) Insomnia (Chronic) Essential hypertension (Chronic) Hyperlipidemia (Chronic) Hearing loss (Chronic) Erectile dysfunction (Chronic) Dermatitis (Chronic) Osteoarthritis of hip (Chronic 01/04/15) Colon adenoma (Chronic 12/15/14) Asthma (Chronic) Medical History Abdominal pain (Resolved) Asthma (Chronic) Bilateral otitis media (Inactive) mild Bronchitis (Resolved 01/04/15) Calculus of kidney (Resolved) Colon adenoma (Chronic 04/23/15) tubular adenmoa. 06/16/17. 5-7 year follow-up per Dr. Juarez Dermatitis (Chronic) forehead, likely rosacea Erectile dysfunction (Chronic) Well-controlled on Viagra 10 mg as needed. Essential hypertension (Chronic) FH: CAD (coronary artery disease) (Chronic) Father Hearing loss (Chronic) Hyperlipidemia (Chronic) Well-controlled on Lipitor 10 mg daily. No myalgias. Insomnia (Chronic) Microhematuria (Chronic) H/O Obstructive uropathy (Resolved 06/13/13) Onychomycosis (Chronic) Osteoarthritis (Chronic) Osteoarthritis of hip (Chronic 01/04/15) Pyelonephritis (Resolved) Reactive airway disease (Chronic) Tinea cruris (Resolved) Trochanteric bursitis (Resolved) Ureteral calculus (Resolved) passed Surgical History H/O colonoscopy (Resolved 06/16/17) 05/18/12 Colon ascending; tubular adenoma. Hemorrhoids. 06/16/17 TA, 5-[address] Juarez. 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: daily or most days during the past year weight has: remained stable smoking status: Never smoker alcohol intake frequency: does not drink substance use type: does not use MEDS/ALLERGIES Home Medications and Allergies Home Medications Medication Instructions Recorded Confirmed Type atorvastatin 10 mg PO QHS 04/18/20 05/18/20 History sildenafil (pulm.hypertension) 10 mg PO DAILYP PRN 04/20/20 05/18/20 History hydrocodone-acetaminophen 1 - 2 tab PO Q4HP PRN #20 tab 04/26/20 05/18/20 Rx Allergies Allergy/AdvReac Type Severity Reaction Status Date / Time daptomycin AdvReac Mild Flushing Verified 05/19/20 07:28 morphine AdvReac Mild Hallucinati Verified 05/18/20 20:59 ng Physical Examination Ankle & Foot right: Ankle appearance: other (Right Foot is an acute Full Thickness Wound. Tendon and muscle are exposed. There is a small amount of sero-sanguineous drainage noted which has no odor. The patient reports a wound pain of level 4/10. The wound margin is undefined. ) Tingling/Numbness: toes A/P Time Spent With Patient Time: Total time spent is greater than 50% in coordination of care (as documented) at patient's floor/unit and/or counseling patient: Osteomyelitis right first metatarsal and phalanx Obtain MRI to rule out osteomyelitis of the head of the second metatarsal as well Patient likely undergoing partial amputation of the right forefoot/first ray today.
[2020-05-19] MEDS ORDERED: ALTEPLASE 2 MG VIAL IV ONE (08:30)
[2020-05-19] MEDS: DOCUSATE SODIUM 100 MG CAPSULE PO SCH ×2 (09:55→21:05)
[2020-05-19] MEDS ORDERED: LIDOCAINE HCL/PF 100 MG/5 ML SYRINGE IV ONE (11:45)
[2020-05-19] MEDS ORDERED: PHENYLEPHRINE 10 MG/ML VIAL ONE (11:45)
[2020-05-19] MEDS ORDERED: DEXAMETHASONE 10 MG/ML VIAL ONE (11:45)
[2020-05-19] MEDS ORDERED: GLYCOPYRROLATE 0.2 MG/ML VIAL IV ONE (11:45)
[2020-05-19] MEDS ORDERED: MIDAZOLAM 5 MG/5 ML VIAL ONE (11:45)
[2020-05-19] MEDS ORDERED: PROPOFOL 200 MG/20 ML VIAL IV ONE (11:45)
[2020-05-19] MEDS ORDERED: ONDANSETRON 4 MG/2 ML VIAL ONE (11:45)
[2020-05-19] MEDS ORDERED: KETAMINE 100 MG/ML ML ONE (11:45)
[2020-05-19] MEDS ORDERED: fentaNYL 250 MCG/5 ML VIAL IV ONE (11:45)
[2020-05-19] MEDS: VANCOMYCIN 1,500 MG in 0.9 % SODIUM CHLORIDE 500 ML IV SCH ×2 (11:51→21:05)
[2020-05-19] MEDS ORDERED: LABETALOL 5 MG/ML ML IV PRN (12:21)
[2020-05-19] MEDS ORDERED: LACTATED RINGERS 250 ML IV PRN (12:21)
[2020-05-19] MEDS ORDERED: IPRATROPIUM/ALBUTEROL 3 ML AMPUL.NEB NEB PRN (12:21)
[2020-05-19] MEDS ORDERED: ACETAMINOPHEN 1,000 MG/100 ML BOTTLE IV ONE (12:21)
[2020-05-19] MEDS ORDERED: METHOCARBAMOL 1,000 MG/10 ML VIAL IV PRN (12:21)
[2020-05-19] MEDS ORDERED: NALOXONE HCL 0.4 MG/ML VIAL IV PRN (12:21)
[2020-05-19] MEDS ORDERED: METOPROLOL TARTRATE 5 MG/5 ML VIAL IV PRN (12:21)
[2020-05-19] MEDS ORDERED: FLUMAZENIL 0.1 MG/ML ML IV PRN (12:21)
[2020-05-19] MEDS ORDERED: VANCOMYCIN 1 GM VIAL TOPICAL SCH (12:30)
[2020-05-19] MEDS ORDERED: LACTATED RINGERS 1,000 ML IV SCH (12:30)
[2020-05-19 12:47] LABS: Appearance,Urine CLEAR; Bilirubin,Urine NEG (NEG); Color,Urine YELLOW; Culture Indicated,Urine NO; Glucose,Urine (UA) NEGATIVE (NEG); Ketones,Urine NEG (NEG); Leukocyte Esterase,Urine NEG /uL (NEG); Nitrate,Urine NEG (NEG); Protein,Urine NEG (NEG); Specific Gravity,Urine 1.014 (1.000-1.035); Urine Blood NEG mg/dL (<0.03); Urobilinogen,Urine NEG (NEG)
[2020-05-19] MEDS ORDERED: BUPIVACAINE 0.5% 50 ML VIAL IJ ONE (12:48)
--- NOTE | 2020-05-19 13:04 | Brief Operative Note ---
Brief Operative Note Date of procedure: 05/19/20 Pre-op diagnosis: osteomyelitis right first metatarsal and hallux Post-op diagnosis: same Procedure: Amputation right first metatarsal and hallux Grafts/Implants: No Anesthesia: GETA Complications: none Surgeon: Simon Knight Estimated blood loss (cc): 15 Tourniquet Time (Minutes): 48 Specimens Removed/Pathology: other (bone culture, bone for pathology, deep tissue culture) Condition: stable Disposition: floor
--- NOTE | 2020-05-19 13:26 | Operative Note ---
DATE OF OPERATION: 05/19/2020 PREOPERATIVE DIAGNOSIS: Osteomyelitis, right first metatarsal and hallux. POSTOPERATIVE DIAGNOSIS: Osteomyelitis, right first metatarsal and hallux. PROCEDURE PERFORMED: Amputation, right first metatarsal and hallux. SURGEON: Simon Knight DPM IMPLANTS: None. ANESTHESIA: GETA. COMPLICATIONS: None. Blood LOSS: 15 mL TOURNIQUET TIME: 40 minutes. SPECIMENS: Bone for pathology, deep tissue culture-right first metatarsal. CONDITION: Stable. DISPOSITION: Floor. DESCRIPTION OF PROCEDURE: The patient was brought to the operating room and placed on the operative table in supine position. The right lower extremity was scrubbed, prepped and draped in the usual aseptic fashion. General anesthesia initiated. Esmarch applied. Pneumatic thigh tourniquet inflated to 250 mmHg. Through an incision on the dorsal aspect of the foot a fish mouth incision was created down to the bone. Consistent with preoperative x-ray and MRI, there was noted to be signs of osteomyelitis upon dissection with some necrosis surrounding the first metatarsal and hallux. The entire hallux and first metatarsal disarticulated from the metatarsal cuneiform joint, proximal in the foot. There was no cartilage violation at the base of the first metatarsal. A 3 mL bag of normal saline was used under pulse lavage to irrigate the area. Any remaining necrotic tissue was identified and debrided from the area. Closure was performed with 3-0 nylon in a vertical horizontal in simple interrupted suture fashion. It was packed open with Betadine soaked half-inch packing. There was also vancomycin powder introduced into the area throughout the procedure after irrigation. Xeroform, 4 x 4 gauze, Kerlix, ABD pad and Luis wrap were applied. The patient tolerated the procedure and anesthesia well and was transferred back to the floor to receive continuous treatment of intravenous antibiotic therapy and wound care. KDJ:nancy Job ID: [id number] Doc ID: [id number] Simon Knight DPM
[2020-05-19] MEDS ORDERED: fentaNYL 100 MCG/2 ML VIAL IV SCH (13:30)
[2020-05-19] MEDS ORDERED: HYDROmorphone 0.5 MG/0.5 ML SYRINGE IV SCH (13:45)
[2020-05-19] MEDS: HYDROcodone/APAP 5/325MG TABLET PO PRN ×3 (15:17→22:58)
--- NOTE | 2020-05-19 15:27 | Magnetic Resonance Report ---
INDICATION: Right foot soft tissue abnormality nonhealing ulceration. TECHNIQUE:Multiplanar multi sequential MR images of the right foot without contrast. COMPARISON: Right foot radiographs performed 18 May 2020. FINDINGS: There is significant signal abnormality in the first ray, right foot manifesting as extensive heterogenous hypointense signal on T1-weighted imaging with associated heterogenous hyperintense signal on T2 weighted imaging involving the distal phalanx, proximal phalanx of the great toe in addition to the entire first metatarsal. Findings extend to involve the lateral plantar sesamoid of the right first metatarsophalangeal joint. No drainable fluid collections are definitively identified. Soft tissues demonstrate swelling and edema in the dorsal and plantar soft tissues of the first ray. Additionally there is abnormal T2 signal hyperintensity in the intrinsic musculature interposed between the first and second metatarsals consistent with myositis. The extensor compartment and flexor compartment tendons appear unremarkable. IMPRESSION: Extensive osteomyelitis involving the first phalanx and first metatarsal (first ray) of the right foot. Associated osteomyelitis is identified in the lateral plantar sesamoid of the first metatarsophalangeal joint. Secondary myositis and probable soft tissue cellulitis also noted. No drainable fluid collections identified. Dr. Guzmán notified of these findings by telephone. Interpreted and Authenticated by: Ronald Smith M.D. 05/19/20
[2020-05-19] MEDS: ATORVASTATIN 10 MG TABLET PO SCH (21:05)
[2020-05-20] MEDS: HYDROcodone/APAP 5/325MG TABLET PO PRN ×5 (03:09→19:57)
[2020-05-20] MEDS: 0.9 % SODIUM CHLORIDE 10 ML SYRINGE IV SCH ×5 (04:37→22:26)
[2020-05-20 06:41] LABS: Basophils # (Auto) 0.04 K/mcL (0.00-0.30); Basophils % (Auto) 0.2 % (0.0-2.0); Eosinophils # (Auto) 0.03 K/mcL (0.00-0.70); Eosinophils % (Auto) 0.2 % (0.0-7.0); Granulocytes % (Auto) 82.7 % (38.0-78.0); Hematocrit 29.1 % (40.1-51.0); Hemoglobin 9.5 g/dL (13.7-17.5); Lymphocytes # (Auto) 2.25 K/mcL (1.50-4.80); Lymphocytes % (Auto) 11.3 % (15.5-49.0); Mean Cell Volume 92.4 fL (80.0-100.0); Mean Corpuscular HGB Conc 32.6 g/dL (31.0-36.0); Mean Platelet Volume 8.4 fL (7.4-10.4); Monocytes # (Auto) 1.11 K/mcL (0.10-0.90); Monocytes % (Auto) 5.6 % (1.0-12.0); Platelet Count 570 K/mcL (140-440); RBC 3.15 M/mcL (4.63-6.08); Red Cell Distribution Width 13.5 % (11.5-14.5)
[2020-05-20 06:59] LABS: Blood Urea Nitrogen 15 mg/dl (8-23); Calcium 8.9 mg/dl (8.6-10.4); Carbon Dioxide 25 mmol/L (22-30); Chloride 98 mmol/L (96-108); Glomerular Filtration Rate 102; Glucose 149 mg/dL (70-105)
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
[2020-05-20] MEDS ORDERED: 0.9 % SODIUM CHLORIDE 10 ML SYRINGE IV PRN (08:13)
--- NOTE | 2020-05-20 08:47 | Orthopedic Progress Note ---
SUBJECTIVE Subjective Patient information: Note initiated : 05/20/20 at 8:45 am Service Date, if different from initiated Date: [] Patient: Bob Dupont a 60 y/o M admitted on 05/18/20 for Rt foot pain/sent by Dr Knight. Chief Complaint: [right foot infection] Had amputation of right first metatarsal and great toe yesterday. Feels ok since. Dressings have been left alone. Heel touch on right for ambulation. Constitutional Vitals: Vital Signs Temp Pulse Resp BP Pulse Ox 97.4 F 66 18 127/73 94 05/20/20 07:34 05/20/20 07:34 05/20/20 07:34 05/20/20 07:34 05/20/20 07:34 Period Temp Pulse Resp BP Sys/Hassan Pulse Ox Last 24 Hr 96.8 F-98.1 F 66-102 11-20 112-137/52-80 89-100 Intake and Output 05/19/20 05/20/20 05/20/20 21:59 05:59 13:59 Intake Total 1020 1300 Output Total 500 1850 Balance 520 -550 Weight 188 lb 12.8 oz Intake & Output: Intake & Output 05/19/20 05/20/20 05/20/20 21:59 05:59 13:59 Intake Total 1020 1300 Output Total 500 1850 Balance 520 -550 Weight 188 lb 12.8 oz Intake: IV 500 Vancomycin 1,500 mg In Sodium 500 Chloride 0.9% 500 ml @ 333.3 mls/hr IV Q12H [facility] Rx#: [id number] Oral 720 800 IV - Manual Only 300 Output: Void Amount 500 1850 Other: Meal Dinner Grahm crackers x2 pk Percent of Meal Consumed 100% 100% Feeding Ability Independent Independent Urine Appearance Clear Clear Urine Color Dark Yellow Bright Yellow Urine Odor Normal OBJ DATA Labs CBC & Chem 7: 05/20/20 05:18 05/20/20 05:18 Labs: Abnormal Lab Results 05/20/20 05/20/20 05/19/20 05:18 05:18 05:14 WBC 20.0 H RBC 3.15 L Hgb 9.5 L Hct 29.1 L Plt Count 570 H Gran % 82.7 H Lymph % (Auto) 11.3 L Eos % (Auto) Gran # 16.53 H [place] # (Auto) 1.11 H Eos # (Auto) ESR VBG Lactic Acid Glucose 149 H GGT 127 H AST 45 H ALT 104 H Alkaline Phosphatase 142 H C-Reactive Protein Total Protein 5.7 L Albumin 2.8 L Triglycerides 172 H Procalcitonin 05/19/20 05/18/20 05/18/20 05:14 21:26 18:13 WBC 14.2 H RBC 3.44 L Hgb 10.3 L Hct 31.6 L Plt Count 590 H Gran % Lymph % (Auto) Eos % (Auto) 14.4 H Gran # 8.11 H [place] # (Auto) 1.13 H Eos # (Auto) 2.04 H ESR 69 H VBG Lactic Acid Glucose GGT AST ALT Alkaline Phosphatase C-Reactive Protein Total Protein Albumin Triglycerides Procalcitonin 0.16 H 05/18/20 05/18/20 05/18/20 18:13 18:13 18:13 WBC 14.2 H RBC 3.84 L Hgb 11.7 L Hct 35.5 L Plt Count 657 H Gran % Lymph % (Auto) Eos % (Auto) 13.8 H Gran # 8.77 H [place] # (Auto) 1.13 H Eos # (Auto) 1.96 H ESR VBG Lactic Acid 2.1 H Glucose 154 H GGT AST 58 H ALT 125 H Alkaline Phosphatase 172 H C-Reactive Protein 11.8 H Total Protein Albumin Triglycerides Procalcitonin Meds: Medications Acetaminophen (Tylenol) 650 mg PO Q6HP PRN PRN Reason: PAIN/FEVER > 101 Hydrocodone Bitart/Acetaminophen ([place] 5/325mg) 1 - 2 tab PO Q4HP PRN; Protocol PRN Reason: Per Pain Protocol Last Admin: 05/20/20 07:28 Dose: 1 tab Documented by: Albuterol/Ipratropium (Duoneb) 3 ml NEB Q4HP PRN PRN Reason: Shortness Of Breath Atorvastatin Calcium (Lipitor) 10 mg PO QHS [facility] Last Admin: 05/19/20 21:05 Dose: 10 mg Documented by: Docusate Sodium (Colace) 100 mg PO BID [facility] Last Admin: 05/19/20 21:05 Dose: 100 mg Documented by: Enoxaparin Sodium (Lovenox) 40 mg SQ DAILY [facility] Heparin Sodium (Porcine) (Heparin 10 Units/Ml Flush) 2 ml IV Q12 [facility] Potassium Chloride 40 meq/ (Dextrose) 520 mls @ 130 mls/hr IV UD PRN PRN Reason: Potassium < 3 Magnesium Sulfate (Magnesium Sulfate) 2 gm in 50 mls @ 50 mls/hr IV UD PRN PRN Reason: Magnesium </= 1.6 Vancomycin HCl 1,500 mg/ (Sodium Chloride) 500 mls @ 333.3 mls/hr IV Q12H [facility] Last Infusion: 05/19/20 22:56 Dose: Infused Documented by: Ondansetron HCl (Zofran) 4 mg IV Q4HP PRN PRN Reason: Nausea And Vomiting Polyethylene Glycol (Miralax) 17 gm PO DAILYP PRN PRN Reason: Constipation Potassium Chloride (Kdur) 40 meq PO UD PRN PRN Reason: Potssium is 3-3.5 Potassium Chloride (Kdur) 40 meq PO UD PRN PRN Reason: Potassium < 3 Prochlorperazine (Compazine) 10 mg IV Q6HP PRN PRN Reason: Nausea And Vomiting Senna (Senokot) 2 tab PO DAILYP PRN PRN Reason: Constipation Sodium Chloride (Saline Flush) 10 ml IV Q8 [facility] Last Admin: 05/20/20 04:37 Dose: 10 ml Documented by: Sodium Chloride (Saline Flush) 10 ml IV UD PRN PRN Reason: FLUSH Sodium Chloride (Saline Flush) 10 ml IV Q12 [facility] Vancomycin HCl (Vancomycin Per Pharmacy) 1 order IV UD [facility]; Protocol Vancomycin HCl (Vancomycin) 1 gm TOPICAL ONCE [facility]; Protocol Last Admin: 05/19/20 12:19 Dose: 1 gm Documented by: A/P Time Spent With Patient Time: Total time spent is greater than 50% in coordination of care (as documented) at patient's floor/unit and/or counseling patient: Dressings changed, packing removed Continue IV antibiotics
[2020-05-20] MEDS: ENOXAPARIN 40 MG/0.4 ML SYRINGE SQ SCH (10:26)
[2020-05-20] MEDS: DOCUSATE SODIUM 100 MG CAPSULE PO SCH ×2 (10:26→20:51)
[2020-05-20] MEDS: VANCOMYCIN 1,500 MG in 0.9 % SODIUM CHLORIDE 500 ML IV SCH ×2 (10:27→20:52)
[2020-05-20] MEDS: ATORVASTATIN 10 MG TABLET PO SCH (20:51)
[2020-05-21] MEDS: HYDROcodone/APAP 5/325MG TABLET PO PRN ×4 (00:56→19:06)
[2020-05-21 06:27] LABS: Blood Urea Nitrogen 14 mg/dl (8-23); C-Reactive Protein 1.6 mg/dl (0.0-0.8); Calcium 9.3 mg/dl (8.6-10.4); Carbon Dioxide 28 mmol/L (22-30); Chloride 101 mmol/L (96-108); Glomerular Filtration Rate 96; Glucose 84 mg/dL (70-105)
[2020-05-21 06:45] LABS: Basophils # (Auto) 0.14 K/mcL (0.00-0.30); Basophils % (Auto) 0.9 % (0.0-2.0); Eosinophils # (Auto) 0.75 K/mcL (0.00-0.70); Eosinophils % (Auto) 4.8 % (0.0-7.0); Granulocytes % (Auto) 57.5 % (38.0-78.0); Hematocrit 31.7 % (40.1-51.0); Hemoglobin 10.1 g/dL (13.7-17.5); Lymphocytes % (Auto) 30.7 % (15.5-49.0); Mean Cell Volume 93.8 fL (80.0-100.0); Mean Corpuscular HGB Conc 31.9 g/dL (31.0-36.0); Mean Platelet Volume 8.1 fL (7.4-10.4); Monocytes # (Auto) 0.95 K/mcL (0.10-0.90); Monocytes % (Auto) 6.1 % (1.0-12.0); Platelet Count 589 K/mcL (140-440); RBC 3.38 M/mcL (4.63-6.08); Red Cell Distribution Width 13.4 % (11.5-14.5); WBC 15.6 K/mcL (4.50-11.00)
[2020-05-21] MEDS: 0.9 % SODIUM CHLORIDE 10 ML SYRINGE IV SCH ×3 (06:46→20:33)
[2020-05-21] MEDS: DOCUSATE SODIUM 100 MG CAPSULE PO SCH ×2 (08:00→20:33)
[2020-05-21] MEDS: ENOXAPARIN 40 MG/0.4 ML SYRINGE SQ SCH (08:00)
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
--- NOTE | 2020-05-21 10:33 | Orthopedic Progress Note ---
SUBJECTIVE Subjective Patient information: Note initiated : 05/21/20 at 10:32 am Service Date, if different from initiated Date: [] Patient: Bob Dupont 60 y/o M admitted on 05/18/20 for Rt foot pain/sent by Dr Knight. Chief Complaint: [right foot amputation] No f,c,n,v last 24h. No new issues, mild pain to right foot. Constitutional Vitals: Vital Signs Temp Pulse Resp BP Pulse Ox 98 F 80 18 130/83 94 05/21/20 08:00 05/21/20 08:00 05/21/20 08:00 05/21/20 08:00 05/21/20 08:00 Period Temp Pulse Resp BP Sys/Hassan Pulse Ox Last 24 Hr 97.4 F-98.3 F 72-82 14-18 115-138/63-83 93-95 Intake and Output 05/20/20 05/21/20 05/21/20 21:59 05:59 13:59 Intake Total 1640 800 480 Output Total 850 2375 520 Balance 790 -1575 -40 Weight 188 lb 6.4 oz Intake & Output: Intake & Output 05/20/20 05/21/20 05/21/20 21:59 05:59 13:59 Intake Total 1640 800 480 Output Total 850 2375 520 Balance 790 -1575 -40 Weight 188 lb 6.4 oz Intake: Oral 1640 800 480 Output: Void Amount 850 2375 520 Other: Meal Dinner Breakfast Percent of Meal Consumed 100% 100% Feeding Ability Independent Independent Urine Appearance Clear Clear Urine Color Bright Yellow Bright Yellow Urine Odor Normal Normal OBJ DATA Labs CBC & Chem 7: 05/21/20 05:15 05/21/20 05:15 Labs: Abnormal Lab Results 05/21/20 05/21/20 05/21/20 05:15 05:15 05:15 WBC 15.6 H RBC 3.38 L Hgb 10.1 L Hct 31.7 L Plt Count 589 H Gran % Lymph % (Auto) Eos % (Auto) Gran # 8.97 H [place] # (Auto) 0.95 H Eos # (Auto) 0.75 H ESR 44 H VBG Lactic Acid Glucose GGT AST ALT Alkaline Phosphatase C-Reactive Protein 1.6 H Total Protein Albumin Triglycerides Procalcitonin 05/20/20 05/20/20 05/19/20 05:18 05:18 05:14 WBC 20.0 H RBC 3.15 L Hgb 9.5 L Hct 29.1 L Plt Count 570 H Gran % 82.7 H Lymph % (Auto) 11.3 L Eos % (Auto) Gran # 16.53 H [place] # (Auto) 1.11 H Eos # (Auto) ESR VBG Lactic Acid Glucose 149 H GGT 127 H AST 45 H ALT 104 H Alkaline Phosphatase 142 H C-Reactive Protein Total Protein 5.7 L Albumin 2.8 L Triglycerides 172 H Procalcitonin 05/19/20 05/18/20 05/18/20 05:14 21:26 18:13 WBC 14.2 H RBC 3.44 L Hgb 10.3 L Hct 31.6 L Plt Count 590 H Gran % Lymph % (Auto) Eos % (Auto) 14.4 H Gran # 8.11 H [place] # (Auto) 1.13 H Eos # (Auto) 2.04 H ESR 69 H VBG Lactic Acid Glucose GGT AST ALT Alkaline Phosphatase C-Reactive Protein Total Protein Albumin Triglycerides Procalcitonin 0.16 H 05/18/20 05/18/20 05/18/20 18:13 18:13 18:13 WBC 14.2 H RBC 3.84 L Hgb 11.7 L Hct 35.5 L Plt Count 657 H Gran % Lymph % (Auto) Eos % (Auto) 13.8 H Gran # 8.77 H [place] # (Auto) 1.13 H Eos # (Auto) 1.96 H ESR VBG Lactic Acid 2.1 H Glucose 154 H GGT AST 58 H ALT 125 H Alkaline Phosphatase 172 H C-Reactive Protein 11.8 H Total Protein Albumin Triglycerides Procalcitonin Meds: Medications Acetaminophen (Tylenol) 650 mg PO Q6HP PRN PRN Reason: PAIN/FEVER > 101 Hydrocodone Bitart/Acetaminophen ([place] 5/325mg) 1 - 2 tab PO Q4HP PRN; Protoco l PRN Reason: Per Pain Protocol Last Admin: 05/21/20 07:58 Dose: 2 tab Documented by: Albuterol/Ipratropium (Duoneb) 3 ml NEB Q4HP PRN PRN Reason: Shortness Of Breath Atorvastatin Calcium (Lipitor) 10 mg PO QHS [facility] Last Admin: 05/20/20 20:51 Dose: 10 mg Documented by: Docusate Sodium (Colace) 100 mg PO BID [facility] Last Admin: 05/21/20 08:00 Dose: 100 mg Documented by: Enoxaparin Sodium (Lovenox) 40 mg SQ DAILY [facility] Last Admin: 05/21/20 08:00 Dose: 40 mg Documented by: Heparin Sodium (Porcine) (Heparin 10 Units/Ml Flush) 2 ml IV Q12 [facility] Last Admin: 05/20/20 20:52 Dose: 2 ml Documented by: Potassium Chloride 40 meq/ (Dextrose) 520 mls @ 130 mls/hr IV UD PRN PRN Reason: Potassium < 3 Magnesium Sulfate (Magnesium Sulfate) 2 gm in 50 mls @ 50 mls/hr IV UD PRN PRN Reason: Magnesium </= 1.6 Vancomycin HCl 1,500 mg/ (Sodium Chloride) 500 mls @ 333.3 mls/hr IV Q12H [facility] Last Admin: 05/20/20 20:52 Dose: 333 mls/hr Documented by: Ondansetron HCl (Zofran) 4 mg IV Q4HP PRN PRN Reason: Nausea And Vomiting Polyethylene Glycol (Miralax) 17 gm PO DAILYP PRN PRN Reason: Constipation Potassium Chloride (Kdur) 40 meq PO UD PRN PRN Reason: Potssium is 3-3.5 Potassium Chloride (Kdur) 40 meq PO UD PRN PRN Reason: Potassium < 3 Prochlorperazine (Compazine) 10 mg IV Q6HP PRN PRN Reason: Nausea And Vomiting Senna (Senokot) 2 tab PO DAILYP PRN PRN Reason: Constipation Sodium Chloride (Saline Flush) 10 ml IV UD PRN PRN Reason: FLUSH Sodium Chloride (Saline Flush) 10 ml IV Q12 [facility] Last Admin: 05/20/20 20:52 Dose: 10 ml Documented by: Vancomycin HCl (Vancomycin Per Pharmacy) 1 order IV UD [facility]; Protocol A/P Time Spent With Patient Time: Total time spent is greater than 50% in coordination of care (as documented) at patient's floor/unit and/or counseling patient: Patient may be discharged for outpatient therapy once inflammatory markers normalize.
[2020-05-21] MEDS: VANCOMYCIN 1,500 MG in 0.9 % SODIUM CHLORIDE 500 ML IV SCH ×2 (10:45→20:32)
[2020-05-21] MEDS: ATORVASTATIN 10 MG TABLET PO SCH (20:32)
[2020-05-22] MEDS: HYDROcodone/APAP 5/325MG TABLET PO PRN ×2 (03:57→13:15)
[2020-05-22 06:23] LABS: Hematocrit 31.9 % (40.1-51.0); Hemoglobin 10.3 g/dL (13.7-17.5); Mean Cell Volume 93.5 fL (80.0-100.0); Mean Corpuscular HGB Conc 32.3 g/dL (31.0-36.0); Platelet Count 611 K/mcL (140-440); RBC 3.41 M/mcL (4.63-6.08); Red Cell Distribution Width 13.7 % (11.5-14.5); WBC 14.2 K/mcL (4.50-11.00)
[2020-05-22 08:20] LABS: Eosinophils % (Manual) 6 % (0-7); Lymphocytes % 32 % (15-49); Metamyelocytes % 2 % (0-0); Monocytes % (Manual) 10 % (1-12); Myelocytes % 2 % (0-0); Platelet Estimate INCREASED (NORMAL); RBC Morphology NORMAL (NORMAL); Segmented Neutrophils % 48 % (38-78)
[2020-05-22] MEDS: 0.9 % SODIUM CHLORIDE 10 ML SYRINGE IV SCH (09:55)
[2020-05-22] MEDS: VANCOMYCIN 1,500 MG in 0.9 % SODIUM CHLORIDE 500 ML IV SCH (09:55)
[2020-05-22] MEDS: DOCUSATE SODIUM 100 MG CAPSULE PO SCH (09:55)
[2020-05-22] MEDS: ENOXAPARIN 40 MG/0.4 ML SYRINGE SQ SCH (09:56)
--- NOTE | 2020-05-23 13:18 | Surgical Pathology Report ---
HISTOLOGY SPECIMEN MICROSCOPIC DIAGNOSIS SPECIMEN A - DIGIT, RIGHT GREAT TOE, AMPUTATION: -- EPIDERMAL ULCERATION, ABSCESS AND ACUTE OSTEOMYELITIS. -- VIABLE MARGIN OF RESECTION. SPECIMEN B - BONE, RIGHT FOOT, BIOPSY: -- ACUTE OSTEOMYELITIS. (RLF:sln) PROCEDURAL IMPRESSION Infection. GROSS DESCRIPTION Specimen A: Received in formalin labeled right big toe, is a toe amputation specimen. It measures 10.3 cm in length by up to 4.7 cm greatest width; the proximal resection margin is inked black. The specimen is notable for two ulcers. The first measures 1.5 x 1.4 cm and is 4 cm to the margin. The second measures 4.3 x 2.5 cm and is 0.2 cm to the nearest skin margin. Family Educator sections submitted following decalcification: A1-A2 - margin with larger ulcer in A1; A3 - smaller ulcer; A4 - intact skin with bone. Specimen B: Received in formalin labeled right foot bone biopsy, is a 3.3 cm in length by up to 3.2 cm greatest width bony fragment. The resection margin is inked black. The opposing end is smooth articular surface. Full cross sections submitted in two cassettes following decalcification. (EBD:adj) Electronically Signed by: Anastasia Soler M.D.
== END 2020-05-22 14:54 | disposition home or self-care (01) | DRG 908 ==
LOC: ED 17:53 → MEDSUR 20:42
PROVIDERS: ADMIT Internal Medicine; ATTEND Internal Medicine